=== PATIENT | male | born 1935 | race African-American/Black ===

== ENCOUNTER → 2016-09-23 | Outpatient (CLI) | payer MEDICARE ==
[~2016-09-23] MED LIST: ACET325T PO; ASPI1TAB69 PO; BUME1TAB PO; CARV3.125 PO; CEFT500T3 PO; ENAL20TA PO; FURO1TAB60 PO; FURO1TAB62 PO; GLIP5TAB8 PO; METO25TA3 PO; OXYGENTANK NAS.CANULA; SACU1TAB7 PO; SIMV20TA PO; SPIR25TA PO
[2016-09-23 12:39] LABS: BICARBONATE 27.6 MEQ/L (21.0-32.0); MAGNESIUM 2.4 MG/DL (1.5-2.5); POTASSIUM 5.3 MEQ/L (3.5-5.1)
== END ==
LOC: CLAB 11:59
PROVIDERS: ATTEND Internal Medicine Interventional Cardiology
DX: I50.9 Heart failure, unspecified (principal); I50.32 Chronic diastolic (congestive) heart failure; N18.9 Chronic kidney disease, unspecified
CPT/HCPCS: 36415; 80048; 83735

== ENCOUNTER 2016-09-27 16:23 | Inpatient (IN) | payer MEDICARE ==
[~2016-09-27] VITALS: Ht 190.5 cm; Wt 90.7 kg
[~2016-09-27 16:23] MED LIST changes: -CEFT500T3 PO; -ENAL20TA PO; -FURO1TAB60 PO; -FURO1TAB62 PO; -METO25TA3 PO; -SPIR25TA PO
[2016-09-27 16:26] VITALS: BP 110/70; PULSE 84; RESP 14; TEMP 98; O2SAT 92
[2016-09-27 17:32] VITALS: BP 114/85; PULSE 84; RESP 18; O2SAT 100
--- NOTE | 2016-09-27 17:42 | PD ---
HPI Chief Complaint: Respiratory Symptoms Time Seen by Provider: 17:40 Travel History International Travel<30 days: No Contact w/Intl Traveler<30days: No Traveled to known affect area: No History of Present Illness HPI Patient comes to the hospital for evaluation of worsening shortness breath ongoing since being discharged from the hospital approximately 3-4 weeks ago. Patient was admitted had new pacemaker/defibrillator placed to help with his CHF as well as had his medications adjusted however patient has not followed up with anyone yet since being released reports he has to much fluid on his lungs which is making it difficult for him to breathe and having increasing swelling is bilateral lower extremities. Worse over the past 2-3 weeks. Patient's brothers at bedside states that he stopped by on daily basis to make certain his brother takes his medications in the morning but his brother does not always remember to take them at night. Patient denies any chest pain, fevers, nausea, vomiting, abdominal pain. PFSH Past Medical History Blood Disorders: No Heart Rhythm Problems: No Cancer: No Cardiovascular Problems: Yes (htn) High Cholesterol: Yes Chest Pain: No Congestive Heart Failure: Yes Diabetes: Yes Patient Takes Glucophage: No (glipizide) Endocrine: Yes Gastrointestinal Disorders: No Genitourinary: Yes Hypertension: Yes Immune Disorder: No Implanted Vascular Access Dvce: No Musculoskeletal: No Neurologic: No Psychiatric: No Reproductive: No Respiratory: Yes (chf) Thyroid Disease: No Past Surgical History Other Surgery: Yes Social History Alcohol Use: Yes (beer occ) Tobacco Use: No Substance Use: No Allergies-Medications (Allergen,Severity, Reaction): Coded Allergies: No Known Allergies (Verified , 08/23/16) Reported Meds & Prescriptions Reported Meds & Active Scripts Active Oxygen tank (Oxygen) 1 Ea Tank 2 Liter COLE.CANULA CONTINUOUS Oxygen Concentrator Portable Gaseous 2 L/min via Nasal Cannula Continuous For 99 months Glipizide 5 Mg Tab 5 Mg PO DAILY Take 30 minutes before a meal Entresto (Sacubitril-Valsartan) 49-51 Mg Tab 1 Tab PO BID Acetaminophen 325 Mg Tab 650 Mg PO Q4H PRN Reported Entresto (Sacubitril-Valsartan) 49-51 Mg Tab 1 Tab PO DAILY Lasix (Furosemide) 40 Mg Tab 40 Mg PO DAILY Metoprolol Tartrate 25 Mg Tab 25 Mg PO BID Spironolactone 25 Mg Tab 25 Mg PO DAILY Aspirin 81 Mg Tabdr 81 Mg PO DAILY Review of Systems Except as stated in HPI: all other systems reviewed are Neg Physical Exam Narrative GENERAL: Well-developed, overly nourished, in no acute distress, and non-ill appearing. SKIN: Warm and dry. HEAD: Atraumatic. Normocephalic. EYES: Pupils equal and round. EOMI. No scleral icterus. No injection or drainage. ENT: No nasal bleeding or discharge. Mucous membranes pink and moist. NECK: Trachea midline. Supple. No nuclear rigidity. CARDIOVASCULAR: Regular rate and rhythm. No murmur appreciated. Bilateral pedal edema. RESPIRATORY: No accessory muscle use. No respiratory distress. Crackles noted throughout. Breath sounds equal bilaterally. GASTROINTESTINAL: Abdomen soft, non-tender, nondistended. Hepatic and splenic margins not palpable. Normal bowel sounds 4. No pulsatile mass. MUSCULOSKELETAL: No obvious deformities. No clubbing. No cyanosis. 2+ pitting edema bilateral lower extremities. Full range of motion. NEUROLOGICAL: Awake and alert. No obvious cranial nerve deficits. Motor grossly within normal limits. Normal speech. PSYCHIATRIC: Appropriate mood and affect; insight and judgment normal. Data Data Last Documented VS Vital Signs Date Time Temp Pulse Resp B/P Pulse Ox O2 Delivery O2 Flow Rate FiO2 09/27/16 19:09 98 Nasal Cannula 3 09/27/16 19:09 18 09/27/16 17:32 84 114/85 09/27/16 16:26 98.0 Orders Complete Blood Count With Diff (09/27/16 17:36) Basic Metabolic Panel (Bmp) (09/27/16 17:36) B-Type Natriuretic Peptide (09/27/16 17:36) Act Partial Throm Time (Ptt) (09/27/16 17:36) Prothrombin Time / Inr (Pt) (09/27/16 17:36) Magnesium (Mg) (09/27/16 17:36) Ckmb (Isoenzyme) Profile (09/27/16 17:36) Troponin I (09/27/16 17:36) Iv Access Insert/Monitor (09/27/16 17:36) Electrocardiogram (09/27/16 17:36) Ecg Monitoring (09/27/16 17:36) Oximetry (09/27/16 17:36) Oxygen Administration (09/27/16 17:36) Chest, Single Ap (09/27/16 17:36) Sodium Chloride 0.9% Flush (Ns Flush) (09/27/16 17:45) Bumetanide Inj (Bumex Inj) (09/27/16 19:30) Admit Order (Ed Use Only) (09/27/16 19:57) Labs Laboratory Tests Test 09/27/16 18:00 White Blood Count 4.8 TH/MM3 Red Blood Count 4.07 MIL/MM3 Hemoglobin 10.4 GM/DL Hematocrit 33.8 % Mean Corpuscular Volume 82.9 FL Mean Corpuscular Hemoglobin 25.5 PG Mean Corpuscular Hemoglobin 30.7 % Concent Red Cell Distribution Width 19.3 % Platelet Count 174 TH/MM3 Mean Platelet Volume 9.0 FL Neutrophils (%) (Auto) 74.6 % Lymphocytes (%) (Auto) 13.3 % Monocytes (%) (Auto) 10.3 % Eosinophils (%) (Auto) 1.1 % Basophils (%) (Auto) 0.7 % Neutrophils # (Auto) 3.5 TH/MM3 Lymphocytes # (Auto) 0.6 TH/MM3 Monocytes # (Auto) 0.5 TH/MM3 Eosinophils # (Auto) 0.1 TH/MM3 Basophils # (Auto) 0.0 TH/MM3 CBC Comment DIFF FINAL Differential Comment Prothrombin Time 11.7 SEC Prothromb Time International 1.1 RATIO Ratio Activated Partial 20.9 SEC Thromboplast Time Sodium Level 138 MEQ/L Potassium Level 5.0 MEQ/L Chloride Level 99 MEQ/L Carbon Dioxide Level 30.5 MEQ/L Anion Gap 9 MEQ/L Blood Urea Nitrogen 53 MG/DL Creatinine 2.34 MG/DL Estimat Glomerular Filtration 33 ML/MIN Rate Random Glucose 107 MG/DL Calcium Level 8.4 MG/DL Magnesium Level 2.4 MG/DL Total Creatine Kinase 72 U/L Troponin I 0.05 NG/ML B-Type Natriuretic Peptide GREATER THAN 5000 PG/ML MDM Medical Decision Making Medical Screen Exam Complete: Yes Emergency Medical Condition: Yes Interpretation(s) EKG reviewed by Dr. Alarcon shows ventricular pacemaker rhythm with a ventricular rate of 94. Differential Diagnosis CHF exacerbation, pleural effusion, medical noncompliance, deconditioning, other Narrative Course Patient was seen and examined. Initial laboratory neurological status were ordered. Previous medical records were reviewed. Discussed patient with Dr. Alarcon who is in agreement with plan of care and disposition. Discussed all findings and plan care of patient and his brother. Patient was agreeable for admission. All questions were answered. Physician Communication Physician Communication [address] Correa, who is agreeable to the patient. Diagnosis Primary Impression: Acute exacerbation of congestive heart failure Qualified Code: I50.23 - Acute on chronic systolic congestive heart failure Condition: Stable Shimon Ortega Sep 27, 2016 17:42
[2016-09-27] MEDS ORDERED: SODIUM CHLORIDE 0.9% FLUSH 5 ML FLUSH IVF PRN (17:45)
[2016-09-27 18:22] LABS: AUTOMATED NEUTROPHIL # 3.5 TH/MM3 (1.8-7.7); BASOPHIL % 0.7 % (0.0-2.0); EOSINOPHIL # 0.1 TH/MM3 (0-0.4); EOSINOPHIL % 1.1 % (0.0-4.0); HEMATOCRIT 33.8 % (39.0-51.0); HEMO FLAGS DIFF FINAL; LYMPH % 13.3 % (9.0-44.0); LYMPHOCYTE # 0.6 TH/MM3 (1.0-4.8); MEAN CELL VOLUME 82.9 FL (80.0-100.0); MEAN CORPUSCULAR HEMOGLOBIN 25.5 PG (27.0-34.0); MEAN CORPUSCULAR HGB CONC 30.7 % (32.0-36.0); MONO % 10.3 % (0.0-8.0); NEUT % 74.6 % (16.0-70.0); PLATELET COUNT 174 TH/MM3 (150-450); RED BLOOD COUNT 4.07 MIL/MM3 (4.50-5.90); RED CELL DISTRIBUTION WIDTH 19.3 % (11.6-17.2); WHITE BLOOD COUNT 4.8 TH/MM3 (4.0-11.0)
[2016-09-27 18:42] LABS: APTT (PATIENT) 20.9 SEC (24.3-30.1); INTERNATIONAL NORMALIZED RATIO 1.1 RATIO; PROTHROMBIN TIME - PATIENT 11.7 SEC (9.8-11.6)
--- NOTE | 2016-09-27 18:43 | RADRPT ---
EXAM DATE/TIME: 09/27/2016 18:15 [facility] COMPARISON: CHEST SINGLE AP, August 29, 2016, 14:31. INDICATIONS : Shortness of breath and fluid retention. MEDICAL HISTORY : Hypercholesterolemia. Hypertension. Congestive heart failure. Dyspnea. SURGICAL HISTORY : Pacemaker. ENCOUNTER: Initial ACUITY: 3 weeks PAIN SCORE: 3/10 LOCATION: Bilateral chest FINDINGS: Pacer is in good position. There is cardiomegaly with consolidative changes in the rig ht base with some pleural calcifications evident. There is a slight increase in interstitial edema w hen compared to 08/29/16. There is no pneumothorax. CONCLUSION: Cardiomegaly with minimal increase in interstitial edema. Eldon Collins MD FACR on September 27, 2016 at 18:38 Board Certified Radiologist. This report was verified electronically.
[2016-09-27 18:46] LABS: BICARBONATE 30.5 MEQ/L (21.0-32.0); MAGNESIUM 2.4 MG/DL (1.5-2.5)
[2016-09-27] MEDS ORDERED: FURO1TAB60 PO (19:07)
[2016-09-27] MEDS ORDERED: SPIR25TA PO (19:07)
[2016-09-27] MEDS ORDERED: METO25TA3 PO (19:07)
[2016-09-27] MEDS ORDERED: ENAL20TA PO (19:07)
[2016-09-27] MEDS ORDERED: SACU1TAB7 PO (19:07)
[2016-09-27 19:09] VITALS: RESP 18; O2SAT 98
[2016-09-27 19:30] VITALS: BP 125/82; PULSE 92; RESP 18; O2SAT 99
[2016-09-27] MEDS ORDERED: BUMETANIDE INJ 1 MG/4 ML VIAL IV PUSH ONE (19:30)
[2016-09-27 22:30] VITALS: BP 121/82; PULSE 97; RESP 18; O2SAT 96
[2016-09-28] VITALS (9 sets, daily range): BP systolic 109–130; BP diastolic 69–94; PULSE 87–107; RESP 16–22; TEMP 97.3–98; O2SAT 92–100
--- NOTE | 2016-09-28 00:53 | HHI.HP ---
[facility] Service [facility] Primary Care Physician Cyrus Perry M.D. Admission Diagnosis CHF exacerbation Diagnoses: Chief Complaint: Shortness of breath, swelling Travel History International Travel<30 Days: No Contact w/Intl Traveler <30 Da: No Traveled to Known Affected Are: No History of Present Illness History from patient, ER PA communication, and review of medical records. Patient reported that he came back to the hospital because he has been swelling all over. He is also reporting shortness of breath on exertion. He states he lives alone. He reports he ambulates without a walker. Her states that it is now getting more and more difficult to bear weight on his lower extremities because it has been getting more and more swollen. He denies any chest pains. Patient initially claims that he was not discharged on Lasix. He initially thinks he does not have history of congestive heart failure but later he remembers that he did have AICD placed in his previous admission last month. Medical records from previous hospitalization reviewed. 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 He was admitted at that time for CHF exacerbation as well. Patient's brother who usually checks in on him every day was present in ER and discussed with ER PA. He believes that patient may not be taking his medications as prescribed. When asked about this, patient states he might be forgetting to take his medications as well. States that he would not do that again. Apart from that, patient denies any fevers/nausea/vomiting/diarrhea. Denies seeing any blood in his stool or urine. Review of Systems Constitutional: COMPLAINS OF: Fatigue, Weight gain, DENIES: Diaphoretic episodes, Fever, Weight loss, Dizziness Respiratory: COMPLAINS OF: Shortness of breath, DENIES: Apneas, Cough, Snoring , Wheezing, Sputum production Cardiovascular: COMPLAINS OF: Dyspnea on Exertion, PND, Lower Extremity Edema, Orthopnea, DENIES: Chest pain, Palpitations, Syncope Gastrointestinal: DENIES: Abdominal pain, Black stools, Bloody stools, Constipation, Diarrhea, Nausea, Vomiting Genitourinary: DENIES: Urinary frequency, Urinary incontinence, Urgency, Dysuria Musculoskeletal: COMPLAINS OF: Muscle aches, Back pain Neurologic: COMPLAINS OF: Abnormal gait, Poor Balance, DENIES: Headache, Localized weakness, Seizures, Tremor Past Family Social History Past Medical History Hypertension Diabetes Hyperlipidemia CHFstatus post AICDEF of 30%. 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 Past Surgical History AICD/PPM placement Right shoulder surgery Reported Medications Patient's medications list from discharge 2 weeks agoreviewed. Patient denies any new changes in his medications. Allergies: Coded Allergies: No Known Allergies (Verified , 08/23/16) Family History Denies any family history of any medical conditions. Social History States he quit smoking many years ago. Also denies any alcohol abuse. Stated he quit this as well. Apparently lives by himself. His brother comes in every morning to check on him. Physical Exam Vital Signs Vital Signs Date Time Temp Pulse Resp B/P Pulse Ox O2 Delivery O2 Flow Rate FiO2 09/27/16 22:30 97 18 121/82 96 Nasal Cannula 3 09/27/16 19:30 92 18 125/82 99 Nasal Cannula 09/27/16 19:09 98 Nasal Cannula 3 09/27/16 19:09 18 98 Nasal Cannula 09/27/16 17:32 84 18 114/85 100 Nasal Cannula 2 09/27/16 17:21 82 18 Nasal Cannula 2 09/27/16 16:26 98.0 84 14 110/70 92 Room Air 4 Physical Exam GENERAL: This is a well-nourished, well-developed patient, in no apparent distress. SKIN: No rashes, ecchymoses or lesions. Cool and dry. HEAD: Atraumatic. Normocephalic. No temporal or scalp tenderness. EYES: PNo scleral icterus. No injection or drainage. ENT: Nose without bleeding, purulent drainage or septal hematoma.Airway patent. NECK: Trachea midline. No JVD CARDIOVASCULAR: Regular rate and rhythm without murmurs, gallops, or rubs. RESPIRATORY: Bilateral basilar rales. GASTROINTESTINAL: Abdomen soft, non-tender, nondistended. No guarding. MUSCULOSKELETAL: Extremities without clubbing, cyanosis, No calf tenderness. Bilateral lower extremity 3+ pitting edema up to his thighs. Generalized anasarca. NEUROLOGICAL: Awake and alert. Motor and sensory grossly within normal limits. Normal speech. Laboratory Laboratory Tests Test 09/27/16 18:00 White Blood Count 4.8 Red Blood Count 4.07 Hemoglobin 10.4 Hematocrit 33.8 Mean Corpuscular Volume 82.9 Mean Corpuscular Hemoglobin 25.5 Mean Corpuscular Hemoglobin 30.7 Concent Red Cell Distribution Width 19.3 Platelet Count 174 Mean Platelet Volume 9.0 Neutrophils (%) (Auto) 74.6 Lymphocytes (%) (Auto) 13.3 Monocytes (%) (Auto) 10.3 Eosinophils (%) (Auto) 1.1 Basophils (%) (Auto) 0.7 Neutrophils # (Auto) 3.5 Lymphocytes # (Auto) 0.6 Monocytes # (Auto) 0.5 Eosinophils # (Auto) 0.1 Basophils # (Auto) 0.0 CBC Comment DIFF FINAL Differential Comment Prothrombin Time 11.7 Prothromb Time International 1.1 Ratio Activated Partial 20.9 Thromboplast Time Sodium Level 138 Potassium Level 5.0 Chloride Level 99 Carbon Dioxide Level 30.5 Anion Gap 9 Blood Urea Nitrogen 53 Creatinine 2.34 Estimat Glomerular Filtration 33 Rate Random Glucose 107 Calcium Level 8.4 Magnesium Level 2.4 Total Creatine Kinase 72 Troponin I 0.05 B-Type Natriuretic Peptide GREATER THAN 5000 Result Diagram: 09/27/16 1800 09/27/16 1800 Imaging Last 48 hours Impressions Chest X-Ray 09/27/16 1736 Signed Impressions: Service Date/Time: Tuesday, September 27, 2016 18:15 - CONCLUSION: Cardiomegaly with minimal increase in interstitial edema. Eldon Collisn MD FACR Assessment and Plan Problem List: (1) Acute exacerbation of congestive heart failure ICD Code: I50.9 Status: Acute (2) Peripheral edema ICD Code: R60.9 Status: Acute Assessment and Plan Impression: Generalized anasarca Pulmonary edema Acute on chronic systolic heart failurelikely due to medications noncompliance Elevated BNP Hypertension Diabetes Hyperlipidemia CHFstatus post AICDEF of 30%. 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 Plan: Patient was given Bumex 1 mg IV in ER. Patient is still somewhat symptomatic at the time of my exam which is about 6 hours after that Bumex dose. Will therefore give patient additional 40 mg IV Lasix one dose. Continue Lasix at 40 mg IV every 12 hours. CHF teaching. Inputs/outputs. Daily weights. Resume rest of his home medications. We'll monitor fingersticks and cover with sliding scale coverage. Case management consult for possibly placement into a rehabilitation facility. DVT prophylaxison heparin Discussed Condition With patient, ER PA, nursing staff Physician Certification 2 Midnight Certification Type: Admission for Inpatient Services Order for Inpatient Services The services are ordered in accordance with Medicare regulations or non- Medicare payer requirements, as applicable. In the case of services not specified as inpatient-only, they are appropriately provided as inpatient services in accordance with the 2-midnight benchmark. Estimated LOS (days): 2 days is the estimated time the patient will need to remain in the hospital, assuming treatment plan goals are met and no additional complications. Post-Hospital Plan: SNF Problem Qualifiers (1) Acute exacerbation of congestive heart failure: Qualified Code: I50.23 - Acute on chronic systolic congestive heart failure Uzma Correa MD Sep 28, 2016 00:53
[2016-09-28] MEDS ORDERED: ONDANSETRON HCL 4 MG/2 ML VIAL IVP PRN (01:00)
[2016-09-28] MEDS ORDERED: NALOXONE HCL 0.4 MG/ML AMP IV PRN (01:00)
[2016-09-28] MEDS ORDERED: DEXTROSE 50% IN WATER 50 ML VIAL(D50) IV PUSH PRN (01:00)
[2016-09-28] MEDS ORDERED: FUROSEMIDE 40 MG/4 ML VIAL IV PUSH ONE (01:00)
[2016-09-28] MEDS ORDERED: GLUCAGON 1 MG/ML VIAL OTHER PRN (01:00)
[2016-09-28] MEDS: INSULIN ASPART SUPPLEMENTAL SCALE SQ SCH ×4 (07:00→21:00)
[2016-09-28] MEDS: SACUBITRIL/VALSARTAN 49 MG-51 MG TAB PO SCH (08:31)
[2016-09-28] MEDS: ASPIRIN EC 81 MG TABEC PO SCH (08:31)
[2016-09-28] MEDS: FUROSEMIDE 40 MG/4 ML VIAL IV PUSH SCH ×2 (08:31→18:58)
[2016-09-28] MEDS: glipiZIDE 5 MG TAB PO SCH (08:31)
[2016-09-28] MEDS: SODIUM CHLORIDE 0.9% FLUSH 5 ML FLUSH FLUSH SCH ×2 (08:32→21:00)
[2016-09-28] MEDS: METOPROLOL TARTRATE 25 MG TAB PO SCH ×2 (08:32→22:48)
[2016-09-28] MEDS: SPIRONOLACTONE 25 MG TAB PO SCH (08:32)
[2016-09-28] MEDS: HEPARIN SODIUM - SQ 10,000 UNITS/ML VIAL SQ SCH ×2 (15:53→22:48)
--- NOTE | 2016-09-28 17:23 | HHI.PR ---
Subjective Remarks Patient laying in bed resting comfortable Denied chest pain, stated his breathing is better today he is on iv diuretic Objective Vitals Vital Signs Date Time Temp Pulse Resp B/P Pulse Ox O2 Delivery O2 Flow Rate FiO2 09/28/16 15:36 93 16 121/93 Nasal Cannula 2 97 09/28/16 13:27 94 18 118/88 99 Nasal Cannula 2 09/28/16 11:40 93 18 97 Nasal Cannula 2 09/28/16 11:40 96 Nasal Cannula 2 09/28/16 10:23 87 20 109/77 97 Nasal Cannula 2 09/28/16 08:26 98 20 120/69 96 Nasal Cannula 2 09/28/16 07:24 99 22 111/73 97 Nasal Cannula 2 09/28/16 04:00 98 18 130/94 97 Nasal Cannula 3 09/28/16 04:00 82 18 Nasal Cannula 2 09/28/16 00:30 90 18 130/87 100 Nasal Cannula 3 09/27/16 22:30 97 18 121/82 96 Nasal Cannula 3 09/27/16 19:30 92 18 125/82 99 Nasal Cannula 09/27/16 19:09 98 Nasal Cannula 3 09/27/16 19:09 18 98 Nasal Cannula 09/27/16 17:32 84 18 114/85 100 Nasal Cannula 2 I/O 09/27/16 09/27/16 09/27/16 09/28/16 09/28/16 09/28/16 07:00 15:00 23:00 07:00 15:00 23:00 Intake Total 221 ml Output Total 900 ml 320 ml 375 ml Balance -900 ml -99 ml -375 ml Intake Oral 221 ml Output Urine Total 900 ml 320 ml 375 ml # Voids 1 1 Result Diagram: 09/27/16 1800 09/27/16 1800 Objective Remarks - GENERAL: This is a well-nourished, well-developed patient, in no apparent distress. SKIN: No rashes, warm and dry , some dry ulcer on the stark HEAD: Atraumatic. Normocephalic. EYES: Pupils equal round and reactive. Extraocular motions intact. No scleral icterus. ENT: Nose without bleeding, or drainage, Airway patent. NECK: Trachea midline. Supple CARDIOVASCULAR: Regular rate and rhythm with systolic murmur 3 out of 6 RESPIRATORY: Fair air entry bilaterally. No wheezes, rales, or rhonchi. GASTROINTESTINAL: Abdomen soft, non-tender, nondistended. Positive bowel sounds MUSCULOSKELETAL: Extremities without clubbing, cyanosis, +2 edema. Pedal pulses appreciated NEUROLOGICAL: Awake and alert. Moves all extremity. Normal speech.no focal neurological deficit A/P Problem List: (1) Acute exacerbation of congestive heart failure ICD Code: I50.9 Status: Acute (2) Peripheral edema ICD Code: R60.9 Status: Acute Assessment and Plan 81 years old male admitted with Acute on chronic systolic heart failurelikely due to medications noncompliance Generalized anasarca Pulmonary edema Elevated BNP Hypertension Diabetes Hyperlipidemia CHFstatus post AICDEF of 30%. 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 Plan: Status post Bumex in ER Continue Lasix at 40 mg IV every 12 hours. CHF education Strict Inputs/outputs, Daily weights. Resume rest of his home medications. We'll monitor fingersticks and cover with sliding scale coverage. Case management consult for possibly placement into a rehabilitation facility. DVT prophylaxison heparin Problem Qualifiers (1) Acute exacerbation of congestive heart failure: Qualified Code: I50.23 - Acute on chronic systolic congestive heart failure Enmanuel Yarbrough MD Sep 28, 2016 17:23
--- NOTE | 2016-09-28 20:16 | EKG ---
Date Performed: 09/27/2016 Time Performed: 19:23:56 PTAGE: 81 years EKG: ELECTRONIC VENTRICULAR PACEMAKER ABNORMAL RHYTHM ECG PREVIOUS TRACING : 08/30/2016 05.45 Compared to prior tracing no significant change DOCTOR: Leta Mansfield Interpretating Date/Time 09/28/2016 20:15:35
[2016-09-29] VITALS (9 sets, daily range): BP systolic 112–126; BP diastolic 60–88; PULSE 80–92; RESP 17–20; TEMP 97.1–97.6; O2SAT 0–99
[2016-09-29] MEDS: INSULIN ASPART SUPPLEMENTAL SCALE SQ SCH ×4 (06:13→21:00)
[2016-09-29 06:14] LABS: AUTOMATED NEUTROPHIL # 3.1 TH/MM3 (1.8-7.7); BASOPHIL % 0.7 % (0.0-2.0); EOSINOPHIL % 0.9 % (0.0-4.0); HEMATOCRIT 32.9 % (39.0-51.0); HEMO FLAGS DIFF FINAL; LYMPH % 19.8 % (9.0-44.0); LYMPHOCYTE # 0.9 TH/MM3 (1.0-4.8); MEAN CELL VOLUME 82.6 FL (80.0-100.0); MEAN CORPUSCULAR HGB CONC 30.3 % (32.0-36.0); MONO % 9.9 % (0.0-8.0); NEUT % 68.7 % (16.0-70.0); PLATELET COUNT 176 TH/MM3 (150-450); RED BLOOD COUNT 3.98 MIL/MM3 (4.50-5.90); WHITE BLOOD COUNT 4.5 TH/MM3 (4.0-11.0)
[2016-09-29] MEDS: HEPARIN SODIUM - SQ 10,000 UNITS/ML VIAL SQ SCH ×3 (06:17→21:30)
[2016-09-29 06:41] LABS: BICARBONATE 29.7 MEQ/L (21.0-32.0)
[2016-09-29] MEDS: ASPIRIN EC 81 MG TABEC PO SCH (09:40)
[2016-09-29] MEDS: FUROSEMIDE 40 MG/4 ML VIAL IV PUSH SCH ×2 (09:40→17:26)
[2016-09-29] MEDS: SPIRONOLACTONE 25 MG TAB PO SCH (09:40)
[2016-09-29] MEDS: SACUBITRIL/VALSARTAN 49 MG-51 MG TAB PO SCH (09:40)
[2016-09-29] MEDS: METOPROLOL TARTRATE 25 MG TAB PO SCH ×2 (09:40→21:30)
[2016-09-29] MEDS: glipiZIDE 5 MG TAB PO SCH (09:40)
[2016-09-29] MEDS: SODIUM CHLORIDE 0.9% FLUSH 5 ML FLUSH FLUSH SCH ×2 (09:40→21:30)
[2016-09-29] MEDS ORDERED: INFLUENZA VIRUS VACCINE (QUADRIVALENT) 0.5 ML SYR IM ONE (10:00)
[2016-09-29] MEDS ORDERED: PNEUMOCOCCAL POLYVALENT INJ 25 MCG/0.5 ML SYR IM ONE (10:00)
--- NOTE | 2016-09-29 15:32 | HHI.PR ---
Subjective Remarks All in all patient stated he feels better and breathe better and more able mobilize part of the bed little more comfortable However he doesn't think he is putting out enough urine per the EMR he put out 11 45 cc yesterday Objective Vitals Vital Signs Date Time Temp Pulse Resp B/P Pulse Ox O2 Delivery O2 Flow Rate FiO2 09/29/16 08:15 92 09/29/16 07:15 Nasal Cannula 3.00 97 09/29/16 04:30 99 09/29/16 04:00 97.6 87 18 126/84 09/29/16 00:00 97.2 83 17 112/60 09/28/16 20:50 Nasal Cannula 2.00 09/28/16 20:00 107 09/28/16 20:00 98.0 104 18 125/79 97 09/28/16 17:29 97.3 97 20 123/89 92 09/28/16 15:36 93 16 121/93 Nasal Cannula 2 97 I/O 09/28/16 09/28/16 09/28/16 09/29/16 09/29/16 09/29/16 07:00 15:00 23:00 07:00 15:00 23:00 Intake Total 221 ml 180 ml 240 ml Output Total 900 ml 320 ml 625 ml 200 ml Balance -900 ml -99 ml -445 ml 40 ml Intake Oral 221 ml 180 ml 240 ml Output Urine Total 900 ml 320 ml 625 ml 200 ml # Voids 1 2 # Bowel Movements 0 2 Result Diagram: 09/29/16 0532 09/29/16 0532 Objective Remarks - GENERAL: This is a well-nourished, well-developed patient, in no apparent distress. SKIN: No rashes, warm and dry , some dry ulcer on the stark HEAD: Atraumatic. Normocephalic. EYES: Pupils equal round and reactive. Extraocular motions intact. No scleral icterus. ENT: Nose without bleeding, or drainage, Airway patent. NECK: Trachea midline. Supple CARDIOVASCULAR: Regular rate and rhythm with systolic murmur 3 out of 6 RESPIRATORY: Fair air entry bilaterally. No wheezes, rales, or rhonchi. GASTROINTESTINAL: Abdomen soft, non-tender, nondistended. Positive bowel sounds MUSCULOSKELETAL: Extremities without clubbing, cyanosis, +2 edema. Pedal pulses appreciated NEUROLOGICAL: Awake and alert. Moves all extremity. Normal speech.no focal neurological deficit A/P Problem List: (1) Acute exacerbation of congestive heart failure ICD Code: I50.9 Status: Acute (2) Peripheral edema ICD Code: R60.9 Status: Acute Assessment and Plan 81 years old male admitted with Acute CHF exacerbation : on chronic systolic heart failurelikely due to medications and diet noncompliance Generalized anasarca Hypoalbuminemia Pulmonary edema Elevated BNP Hypertension Diabetes Hyperlipidemia CHFstatus post AICDEF of 30%. 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 Plan: Continue Lasix at 40 mg IV every 12 hours. If no further urine output improvement, will try albumin/Lasix trial, monitor BMP, BNP, check level in a.m. , apply strict fluid restriction 1500 cc per day Strict Inputs/outputs, Daily weights. CHF education Resume rest of his home medications. We'll monitor fingersticks and cover with sliding scale coverage. Case management consult for possibly placement into a rehabilitation facility. DVT prophylaxison heparin Problem Qualifiers (1) Acute exacerbation of congestive heart failure: Qualified Code: I50.23 - Acute on chronic systolic congestive heart failure Enmanuel Yarbrough MD Sep 29, 2016 15:32
[2016-09-30] VITALS (8 sets, daily range): BP systolic 116–139; BP diastolic 76–88; PULSE 85–89; RESP 16–21; TEMP 97.2–99.2; O2SAT 84–100
[2016-09-30] MEDS: HEPARIN SODIUM - SQ 10,000 UNITS/ML VIAL SQ SCH ×3 (06:00→23:18)
[2016-09-30] MEDS: INSULIN ASPART SUPPLEMENTAL SCALE SQ SCH ×4 (06:57→21:00)
[2016-09-30 07:12] LABS: BICARBONATE 26.6 MEQ/L (21.0-32.0); INDIRECT BILIRUBIN 1.1 MG/DL (0.0-0.8); POTASSIUM 5.8 MEQ/L (3.5-5.1); TOTAL BILIRUBIN ADULT 2.8 MG/DL (0.2-1.0)
[2016-09-30] MEDS: SACUBITRIL/VALSARTAN 49 MG-51 MG TAB PO SCH (09:46)
[2016-09-30] MEDS: SODIUM CHLORIDE 0.9% FLUSH 5 ML FLUSH FLUSH SCH ×2 (09:46→23:16)
[2016-09-30] MEDS: FUROSEMIDE 40 MG/4 ML VIAL IV PUSH SCH ×2 (09:46→17:03)
[2016-09-30] MEDS: ASPIRIN EC 81 MG TABEC PO SCH (09:46)
[2016-09-30] MEDS: METOPROLOL TARTRATE 25 MG TAB PO SCH ×2 (09:46→23:14)
[2016-09-30] MEDS ORDERED: INSULIN HUMAN REGULAR 1,000 UNITS/10 ML VIAL IV PUSH ONE (12:45)
[2016-09-30] MEDS ORDERED: DEXTROSE 50% IN WATER 50 ML VIAL(D50) IV PUSH ONE (12:45)
[2016-09-30] MEDS: SODIUM POLYSTYRENE SULFONATE SUSP 15 GM/60 ML CUP PO SCH ×3 (14:15→23:15)
--- NOTE | 2016-09-30 16:05 | HHI.PR ---
Subjective Remarks Patient seen and examined earlier this morning Patient laying in bed comfortably, no chest pain or short of breath Objective Vitals Vital Signs Date Time Temp Pulse Resp B/P Pulse Ox O2 Delivery O2 Flow Rate FiO2 09/30/16 12:08 97.2 89 21 124/85 09/30/16 08:24 97.6 88 20 116/77 09/30/16 07:15 Nasal Cannula 3.00 97 09/30/16 04:00 97.3 85 18 136/84 09/30/16 00:00 97.3 85 18 139/84 09/29/16 20:00 97.1 92 18 123/66 09/29/16 19:15 90 09/29/16 19:15 Nasal Cannula 3.00 97 I/O 09/29/16 09/29/16 09/29/16 09/30/16 09/30/16 09/30/16 07:00 15:00 23:00 07:00 15:00 23:00 Intake Total 240 ml 240 ml 240 ml 100 ml Output Total 200 ml 125 ml 200 ml Balance 40 ml 115 ml 40 ml 100 ml Intake Oral 240 ml 240 ml 240 ml 100 ml Output Urine Total 200 ml 125 ml 200 ml # Voids 2 1 3 # Bowel Movements 2 2 2 0 Result Diagram: 09/29/16 0532 09/30/16 0605 Objective Remarks - GENERAL: This is a well-nourished, well-developed patient, in no apparent distress. SKIN: No rashes, warm and dry , some dry ulcer on the stark HEAD: Atraumatic. Normocephalic. EYES: Pupils equal round and reactive. Extraocular motions intact. No scleral icterus. ENT: Nose without bleeding, or drainage, Airway patent. NECK: Trachea midline. Supple CARDIOVASCULAR: Regular rate and rhythm with systolic murmur 3 out of 6 RESPIRATORY: Fair air entry bilaterally. No wheezes, rales, or rhonchi. GASTROINTESTINAL: Abdomen soft, non-tender, nondistended. Positive bowel sounds MUSCULOSKELETAL: Extremities without clubbing, cyanosis, +2 edema. Pedal pulses appreciated NEUROLOGICAL: Awake and alert. Moves all extremity. Normal speech.no focal neurological deficit A/P Problem List: (1) Acute exacerbation of congestive heart failure ICD Code: I50.9 Status: Acute (2) Peripheral edema ICD Code: R60.9 Status: Acute Assessment and Plan 81 years old male admitted with Acute CHF exacerbation : on chronic systolic heart failurelikely due to medications and diet noncompliance Generalized anasarca Hypoalbuminemia Pulmonary edema Elevated bilirubin, LFT, alkaline phosphatase, mostly congested Liver Hypertension Diabetes Hyperlipidemia CHFstatus post AICDEF of 30%. 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 Plan: 09/30/16 patient had hyperkalemia of 5.8 Discussed with the nurse, will give Kayexalate and D50 followed by 10 units of insulin I directed the nurse to check Accu-Chek after that knowing that patient had some hypoglycemia yesterday, and if glucose< 70 to and D5 normal saline at 40 cc /h Continue Lasix at 40 mg IV Increased frequency to every 8 hours. Stephanie significant improvement with Lasix, will consult cardiology Dr. harry, May need albumin with Lasix trial,monitor BMP, BNP, check level in a.m., apply strict fluid restriction 1500 cc per day Strict Inputs/outputs, Daily weights. CHF education Resume rest of his home medications. We'll monitor fingersticks and cover with sliding scale coverage. Case management consult for possibly placement into a rehabilitation facility. DVT prophylaxison heparin Discharge Planning When clinically improved Problem Qualifiers (1) Acute exacerbation of congestive heart failure: Qualified Code: I50.23 - Acute on chronic systolic congestive heart failure Enmanuel Yarbrough MD Sep 30, 2016 16:05
[2016-09-30] MEDS ORDERED: DEXTROSE 5% IN WATE 1000ML INJ 1,000 ML IV SCH (18:45)
[2016-09-30] MEDS ORDERED: DEXT 5%-NACL 0.45% 1000 ML INJ 1,000 ML IV SCH (19:00)
[2016-10-01 00:07] VITALS: BP 117/81; PULSE 85; RESP 18; TEMP 97.3; O2SAT 100
[2016-10-01] MEDS: FUROSEMIDE 40 MG/4 ML VIAL IV PUSH SCH ×2 (01:25→08:48)
[2016-10-01 04:00] VITALS: BP 118/76; PULSE 92; RESP 18; TEMP 97.4; O2SAT 100
[2016-10-01] MEDS: HEPARIN SODIUM - SQ 10,000 UNITS/ML VIAL SQ SCH ×3 (06:12→21:42)
[2016-10-01] MEDS: INSULIN ASPART SUPPLEMENTAL SCALE SQ SCH ×4 (06:12→21:42)
[2016-10-01 07:41] LABS: TOTAL BILIRUBIN ADULT 2.4 MG/DL (0.2-1.0)
[2016-10-01 07:45] LABS: BICARBONATE 26.5 MEQ/L (21.0-32.0); INDIRECT BILIRUBIN 1.1 MG/DL (0.0-0.8); POTASSIUM 5.2 MEQ/L (3.5-5.1)
[2016-10-01 08:00] VITALS: BP 116/83; PULSE 81; RESP 20; TEMP 97.3; O2SAT 99
[2016-10-01] MEDS: SODIUM CHLORIDE 0.9% FLUSH 5 ML FLUSH FLUSH SCH ×2 (08:47→21:43)
[2016-10-01] MEDS: METOPROLOL TARTRATE 25 MG TAB PO SCH ×2 (08:49→21:39)
[2016-10-01] MEDS: SACUBITRIL/VALSARTAN 49 MG-51 MG TAB PO SCH (08:49)
[2016-10-01] MEDS: ASPIRIN EC 81 MG TABEC PO SCH (08:50)
[2016-10-01] MEDS: SODIUM POLYSTYRENE SULFONATE SUSP 15 GM/60 ML CUP PO SCH (08:50)
[2016-10-01] MEDS ORDERED: SODIUM POLYSTYRENE SULFONATE SUSP 15 GM/60 ML CUP PO ONE (11:00)
--- NOTE | 2016-10-01 11:02 | HHI.PR ---
Subjective Remarks Patient laying in bed he's not very pleasant "They put me in restrain last night " I discussed extensively with the nurse Brooke Yun and with the charge nurse Lulu , looks like he was agitated yesterday His blood sugar was above 200 today we'll stop D5 iv fluid, and I instructed the nurse to bring him a tray to eat now He denied chest pain, still on O2 nasal cannula, urine output is not enough for that amount of diuresis he gets, will start albumin with Lasix Objective Vitals Vital Signs Date Time Temp Pulse Resp B/P Pulse Ox O2 Delivery O2 Flow Rate FiO2 10/01/16 08:00 97.3 81 20 116/83 99 10/01/16 07:20 Nasal Cannula 2.00 10/01/16 04:00 97.4 92 18 118/76 100 10/01/16 00:07 97.3 85 18 117/81 100 09/30/16 22:00 100 Nasal Cannula 2.00 09/30/16 20:00 99.2 89 16 132/88 84 09/30/16 20:00 88 09/30/16 16:11 97.3 88 19 121/76 09/30/16 12:08 97.2 89 21 124/85 I/O 09/30/16 09/30/16 09/30/16 10/01/16 10/01/16 10/01/16 07:00 15:00 23:00 07:00 15:00 23:00 Intake Total 100 ml 360 ml Balance 100 ml 360 ml Intake Oral 100 ml 360 ml # Voids 3 2 2 # Bowel Movements 0 1 2 Result Diagram: 09/29/16 0532 10/01/16 0654 Objective Remarks - GENERAL: This is a well-nourished, well-developed patient, in no apparent distress. SKIN: No rashes, warm and dry , some dry ulcer on the stark HEAD: Atraumatic. Normocephalic. EYES: Pupils equal round and reactive. Extraocular motions intact. No scleral icterus. ENT: Nose without bleeding, or drainage, Airway patent. NECK: Trachea midline. Supple CARDIOVASCULAR: Regular rate and rhythm with systolic murmur 3 out of 6 RESPIRATORY: Fair air entry bilaterally. No wheezes, rales, or rhonchi. GASTROINTESTINAL: Abdomen soft, non-tender, nondistended. Positive bowel sounds MUSCULOSKELETAL: Extremities without clubbing, cyanosis, +2 edema. Pedal pulses appreciated NEUROLOGICAL: Awake and alert. Moves all extremity. Normal speech.no focal neurological deficit A/P Problem List: (1) Acute exacerbation of congestive heart failure ICD Code: I50.9 Status: Acute (2) Peripheral edema ICD Code: R60.9 Status: Acute Assessment and Plan 81 years old male admitted with Acute CHF exacerbation : on chronic systolic heart failurelikely due to medications and diet noncompliance Generalized anasarca Hypoalbuminemia Pulmonary edema Elevated bilirubin, LFT, alkaline phosphatase, mostly congested Liver Hypoglycemia episodes Hypertension Diabetes Hyperlipidemia CHFstatus post AICDEF of 30%. 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 Plan: 10/01/16 hyperkalemia slightly improved 5.2>> one more dose Kayexalate Hypoglycemia >>Blood sugar improved will DC D5 normal saline fluid, Stop any basal insulin or glipizide, Continue monitoring Accu-Cheks CHF >>Will start albumin with Lasix trial,monitor BMP, BNP, check level in a.m. , continue strict fluid restriction 1500 cc per day Awaiting cardiology consultation Strict Inputs/outputs, Daily weights. CHF education Resume rest of his home medications.. Case management consult for possibly placement into a rehabilitation facility. DVT prophylaxison heparin Discharge Planning When clinically improved Problem Qualifiers (1) Acute exacerbation of congestive heart failure: Qualified Code: I50.23 - Acute on chronic systolic congestive heart failure Enmanuel Yarbrough MD Oct 01, 2016 11:02
--- NOTE | 2016-10-01 11:40 | MB ---
cc: DAVID BISHOP M.D., VINCENT G. DO DATE OF CONSULTATION: 09/30/[address] David Bishop REASON FOR CONSULTATION Acute on chronic congestive heart failure. HISTORY OF PRESENT ILLNESS Gerald Collins is a pleasant 81-year-old male who presented to [facility] Emergency Room on September 27, 2016 due to increased swelling and shortness of breath. Gerald was originally admitted back in August due to acute exacerbation of congestive heart failure. During this he underwent placement of a biventricular AICD by Dr. Reed. While at home he noticed that it was getting harder and harder to bear weight on his lower extremities due to increased swelling. He also noticed some shortness of breath with exertion. The patient had initially claimed that he was not discharged on Lasix. The patient's brother who usually checks on him believes that the patient may not be taking his medications as prescribed. I spoke to the patient about this and he states he may have forgotten to take his medication. He denies chest pain. PAST MEDICAL HISTORY 1. Chronic systolic heart failure. 2. Hypertension. 3. Diabetes mellitus. 4. Hyperlipidemia. PAST SURGICAL HISTORY 1. Biventricular Biotronik pacemaker/defibrillator (model number [id number], serial number [id number]) on August 29, 2016. 2. Right shoulder surgery. ALLERGIES NO KNOWN DRUG ALLERGIES. MEDICATIONS 1. Entresto 49/51 one tab b.i.d. 2. Tylenol every 4 hours as needed. 3. Metoprolol tartrate 25 mg b.i.d. 4. Lasix 40 mg daily. 5. Spironolactone 25 mg daily. 6. Aspirin 81 mg daily. 7. Oxygen as needed. 8. Glipizide 5 mg daily. FAMILY HISTORY Denies premature coronary artery disease or sudden cardiac within the family. SOCIAL HISTORY The patient currently lives alone but his brother checks on him daily. He quit smoking a number of years ago. Denies alcohol or drug abuse. REVIEW OF SYSTEMS Fourteen systems were reviewed including osteopathic, pertinent positives and negatives above, otherwise negative. PHYSICAL EXAMINATION VITAL SIGNS: Temperature 97.3, heart rate 85, blood pressure 117/81, respirations 18, pulse ox 100% on 2 liters. GENERAL: In general the patient appears well, in no acute distress. Alert, awake and oriented. HEENT: Extraocular muscles intact. Mucous membranes moist. NECK: Neck is supple. No JVD at 45 degrees. No carotid bruits heard bilaterally. Carotid upstroke is brisk in nature. HEART: Heart is regular rate and rhythm. Positive first and second heart sounds. LUNGS: Lungs have decreased breath sounds bilaterally but no overt wheezes, rales or rhonchi. ABDOMEN: Abdomen is soft, nontender, nondistended. No organomegaly noted. EXTREMITIES: Extremities have 2+ pitting edema bilaterally. No clubbing or cyanosis noted. Femoral and distal pulses intact bilaterally. NEUROLOGIC: No focal deficits. SKIN: Warm, dry and intact. OSTEOPATHIC: No kyphoscoliosis, lordosis or paraspinal tender points. LABORATORY WORK Hemoglobin 10.0, hematocrit 32.9, platelets 176. Potassium 5.5, BUN 65, creatinine 2.56, troponin 0.05, BNP greater than 5000. Electrocardiogram (September 27, 2016 at 1923), biventricular pacemaker. IMPRESSIONS 1. Acute on chronic systolic heart failure, [place] [employer] Class III, AHA/ACC, Stage C. 2. Placement of a biventricular ICD (August 29, 2016). 3. Peripheral edema due to heart failure. 4. History of hypertension. 5. History of diabetes. 6. History of hyperlipidemia. RECOMMENDATIONS 1. Gerald has been placed on Lasix 40 mg q.8 and has since diuresed well and is no longer short of breath. 2. His other diuretics have since been held while diuresing. 3. We will continue to diurese him as he still appears in a fluid overload state. 4. We will continue him on aspirin 81 mg daily. 5. Further recommendations will be made based on hospital course. Thank you for allowing me to see Gerald Collins. If any questions, please do not hesitate to call. Vimal Gomez DO VGP/BJF /1:11 AM /11:13 AM
[2016-10-01 12:00] VITALS: BP 108/80; PULSE 84; RESP 20; TEMP 97.4; O2SAT 100
[2016-10-01] MEDS ORDERED: FUROSEMIDE 40 MG/4 ML VIAL IV PUSH SCH (12:00)
--- NOTE | 2016-10-01 13:22 | PD.CARD.PN ---
Subjective Subjective Remarks No chest pain, decreased shortness of breath Objective Medications Current Medications Medications (Trade) Dose Ordered Sig/Deborah Route Start Time Stop Time Status Last Admin (NS Flush) 2 ml UNSCH PRN FLUSH 09/28/16 01:00 (NS Flush) 2 ml BID FLUSH 09/28/16 09:00 09/30/16 23:16 (Zofran Inj) 4 mg Q6H PRN IVP 09/28/16 01:00 (Narcan Inj) 0.4 mg UNSCH PRN IV 09/28/16 01:00 (Ecotrin Ec) 81 mg DAILY PO 09/28/16 09:00 10/01/16 08:50 (Glucotrol) 5 mg DAILY PO 09/28/16 09:00 Hold 09/29/16 09:40 (Lopressor) 25 mg BID PO 09/28/16 09:00 10/01/16 08:49 (Entresto 49-51 Mg) 1 tab DAILY PO 09/28/16 09:00 10/01/16 08:49 (Aldactone) 25 mg DAILY PO 09/28/16 09:00 Hold 09/29/16 09:40 (D50w (Vial) Inj) 25 ml UNSCH PRN IV PUSH 09/28/16 01:00 09/29/16 21:35 (Glucagon Inj) 1 mg UNSCH PRN OTHER 09/28/16 01:00 09/30/16 18:50 (Heparin Inj) 5,000 units Q8HR SQ 09/28/16 14:00 10/01/16 06:12 (Lasix Inj) 40 mg Q12H IV PUSH 10/01/16 21:00 (Albumin 25% Inj) 25 gm Q12H IV 10/01/16 11:00 10/02/16 23:01 Vital Signs / I&O Vital Signs Date Time Temp Pulse Resp B/P Pulse Ox O2 Delivery O2 Flow Rate FiO2 10/01/16 12:00 97.4 84 20 108/80 100 10/01/16 08:00 97.3 81 20 116/83 99 10/01/16 07:20 Nasal Cannula 2.00 10/01/16 04:00 97.4 92 18 118/76 100 10/01/16 00:07 97.3 85 18 117/81 100 09/30/16 22:00 100 Nasal Cannula 2.00 09/30/16 20:00 99.2 89 16 132/88 84 09/30/16 20:00 88 09/30/16 16:11 97.3 88 19 121/76 I/O 09/30/16 09/30/16 09/30/16 10/01/16 10/01/16 10/01/16 07:00 15:00 23:00 07:00 15:00 23:00 Intake Total 100 ml 360 ml Balance 100 ml 360 ml Intake Oral 100 ml 360 ml # Voids 3 2 2 # Bowel Movements 0 1 2 Physical Exam GENERAL: NAD SKIN: Warm and dry. HEAD: Atraumatic. Normocephalic. EYES: Pupils equal and round. No scleral icterus. No injection or drainage. ENT: No nasal bleeding or discharge. Mucous membranes pink and moist. NECK: Trachea midline. No JVD. CARDIOVASCULAR: Regular rate and rhythm. RESPIRATORY: Decreased breath sounds bilaterally GASTROINTESTINAL: Abdomen soft, non-tender, nondistended. Hepatic and splenic margins not palpable. MUSCULOSKELETAL: Anasarca, 2+ pitting edema upper and lower extremities, better than yesterday NEUROLOGICAL: Awake and alert. No obvious cranial nerve deficits. Motor grossly within normal limits. Five out of 5 muscle strength in the arms and legs. Normal speech. PSYCHIATRIC: Appropriate mood and affect; insight and judgment normal. Laboratory Laboratory Tests Test 09/30/16 10/01/16 10/01/16 18:43 06:45 06:54 Potassium Level 5.5 MEQ/L 5.2 MEQ/L Random Glucose 51 MG/DL 98 MG/DL B-Type Natriuretic Peptide GREATER THAN 5000 PG/ML Sodium Level 137 MEQ/L Chloride Level 100 MEQ/L Carbon Dioxide Level 26.5 MEQ/L Anion Gap 11 MEQ/L Blood Urea Nitrogen 67 MG/DL Creatinine 2.79 MG/DL Estimat Glomerular Filtration 27 ML/MIN Rate Calcium Level 8.9 MG/DL Total Bilirubin 2.4 MG/DL Direct Bilirubin 1.3 MG/DL Indirect Bilirubin 1.1 MG/DL Aspartate Amino Transf 128 U/L (AST/SGOT) Alanine Aminotransferase 107 U/L (ALT/SGPT) Alkaline Phosphatase 276 U/L Total Protein 6.1 GM/DL Albumin 2.6 GM/DL Assessment and Plan Problem List: (1) Acute exacerbation of congestive heart failure (2) Peripheral edema (3) Acute on chronic renal insufficiency (4) Abnormal liver function test (5) Volume overload Assessment and Plan 1) Acute on chronic systolic HF, most likely due to forgetting to take his medications as he was directed 2) Continue with diuresis as possible 3) Agree with eventual rehab if possible 4) OOB to chair if possible, help to move fluids some 5) Fluid restriction Problem Qualifiers (1) Acute exacerbation of congestive heart failure: Qualified Code: I50.23 - Acute on chronic systolic congestive heart failure Vimal Gomez DO Oct 01, 2016 13:22
[2016-10-01] MEDS ORDERED: FUROSEMIDE 20 MG/2 ML VIAL IV PUSH PRN (13:45)
[2016-10-01] MEDS: ALBUMIN HUMAN 25% 25 GM/100 ML BAGP IV SCH ×2 (14:34→23:32)
[2016-10-01 16:00] VITALS: BP 117/65; PULSE 79; RESP 20; TEMP 97.5; O2SAT 98
[2016-10-01 20:00] VITALS: BP 106/68; PULSE 88; PULSE 89; RESP 20; TEMP 98.6; O2SAT 100
[2016-10-02] VITALS: BP 109/74; PULSE 78; RESP 20; TEMP 97.7; O2SAT 98
[2016-10-02] MEDS: FUROSEMIDE 40 MG/4 ML VIAL IV PUSH SCH ×4 (00:38→23:45)
[2016-10-02 04:00] VITALS: BP 121/89; PULSE 90; RESP 18; TEMP 97.7; O2SAT 99
[2016-10-02] MEDS: HEPARIN SODIUM - SQ 10,000 UNITS/ML VIAL SQ SCH ×3 (05:46→22:00)
[2016-10-02] MEDS: INSULIN ASPART SUPPLEMENTAL SCALE SQ SCH ×4 (05:47→21:00)
[2016-10-02 08:00] VITALS: BP 126/81; PULSE 84; RESP 16; TEMP 97.2; O2SAT 100
[2016-10-02] MEDS: SODIUM CHLORIDE 0.9% FLUSH 5 ML FLUSH FLUSH SCH ×2 (09:00→22:01)
[2016-10-02] MEDS: SACUBITRIL/VALSARTAN 49 MG-51 MG TAB PO SCH (09:15)
[2016-10-02] MEDS: ASPIRIN EC 81 MG TABEC PO SCH (09:15)
[2016-10-02] MEDS: METOPROLOL TARTRATE 25 MG TAB PO SCH ×2 (09:15→22:00)
[2016-10-02 10:09] LABS: BICARBONATE 30.4 MEQ/L (21.0-32.0); POTASSIUM 3.8 MEQ/L (3.5-5.1)
[2016-10-02] MEDS: ALBUMIN HUMAN 25% 25 GM/100 ML BAGP IV SCH ×2 (11:14→23:05)
[2016-10-02 12:00] VITALS: BP 126/78; PULSE 78; RESP 20; TEMP 97.2; O2SAT 100
--- NOTE | 2016-10-02 15:59 | HHI.PR ---
Subjective Remarks Patient stated he feeling better and urinating a lot more today No chest pain or short of breath, his leg is relatively better than before Benefiting from albumin Lasix diuresing Afebrile Objective Vitals Vital Signs Date Time Temp Pulse Resp B/P Pulse Ox O2 Delivery O2 Flow Rate FiO2 10/02/16 12:00 97.2 78 20 126/78 100 10/02/16 08:00 97.2 84 16 126/81 100 10/02/16 04:00 97.7 90 18 121/89 99 10/02/16 00:00 97.7 78 20 109/74 98 10/01/16 20:00 Nasal Cannula 2.00 10/01/16 20:00 88 10/01/16 20:00 98.6 89 20 106/68 100 10/01/16 16:00 97.5 79 20 117/65 98 I/O 10/01/16 10/01/16 10/01/16 10/02/16 10/02/16 10/02/16 07:00 15:00 23:00 07:00 15:00 23:00 Intake Total 240 ml 220 ml Output Total 200 ml 250 ml Balance 40 ml 220 ml -250 ml Intake Oral 240 ml 120 ml IV Total 100 ml Output Urine Total 200 ml 250 ml # Voids 1 # Bowel Movements 1 1 Result Diagram: 09/29/16 0532 10/02/16 0848 Objective Remarks - GENERAL: This is a well-nourished, well-developed patient, in no apparent distress. SKIN: No rashes, warm and dry , some dry ulcer on the stark HEAD: Atraumatic. Normocephalic. EYES: Pupils equal round and reactive. Extraocular motions intact. No scleral icterus. ENT: Nose without bleeding, or drainage, Airway patent. NECK: Trachea midline. Supple CARDIOVASCULAR: Regular rate and rhythm with systolic murmur 3 out of 6 RESPIRATORY: Fair air entry bilaterally. No wheezes, rales, or rhonchi. GASTROINTESTINAL: Abdomen soft, non-tender, nondistended. Positive bowel sounds MUSCULOSKELETAL: Extremities without clubbing, cyanosis, +2 edema but better than before. Pedal pulses appreciated NEUROLOGICAL: Awake and alert. Moves all extremity. Normal speech.no focal neurological deficit A/P Problem List: (1) Acute exacerbation of congestive heart failure ICD Code: I50.9 Status: Acute (2) Peripheral edema ICD Code: R60.9 Status: Acute Assessment and Plan 81 years old male admitted with Acute CHF exacerbation : on chronic systolic heart failurelikely due to medications and diet noncompliance Generalized anasarca Hypoalbuminemia Pulmonary edema Elevated bilirubin, LFT, alkaline phosphatase, mostly congested Liver Hypoglycemia episodes Hypertension Diabetes Hyperlipidemia CHFstatus post AICDEF of 30%. 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 Plan: 10/02/16 hyperkalemia resolved Hypoglycemia >> resolved, continue Accu-Cheks, sliding scale low level if needed CHF >> on albumin with Lasix trial, reviewed BMP, BNP still at 5000, check level in a.m., continue strict fluid restriction 1500 cc per day Appreciated cardiology consultation Strict Inputs/outputs, Daily weights. CHF education Resume rest of his home medications.. Case management consult for possibly placement into a rehabilitation facility. DVT prophylaxison heparin Discharge Planning When clinically improved Problem Qualifiers (1) Acute exacerbation of congestive heart failure: Qualified Code: I50.23 - Acute on chronic systolic congestive heart failure Enmanuel Yarbrough MD Oct 02, 2016 15:59
[2016-10-02 16:00] VITALS: BP 116/68; PULSE 81; RESP 16; TEMP 97.3; O2SAT 100
--- NOTE | 2016-10-02 16:15 | PD.CARD.PN ---
Subjective Subjective Remarks No chest pain, no shortness of breath, appears somewhat lethargic Objective Medications Current Medications Medications (Trade) Dose Ordered Sig/Deborah Route Start Time Stop Time Status Last Admin (Zofran Inj) 4 mg Q6H PRN IVP 09/28/16 01:00 (Narcan Inj) 0.4 mg UNSCH PRN IV 09/28/16 01:00 (Ecotrin Ec) 81 mg DAILY PO 09/28/16 09:00 10/02/16 09:15 (Glucotrol) 5 mg DAILY PO 09/28/16 09:00 Hold 09/29/16 09:40 (Lopressor) 25 mg BID PO 09/28/16 09:00 10/02/16 09:15 (Entresto 49-51 Mg) 1 tab DAILY PO 09/28/16 09:00 10/02/16 09:15 (Aldactone) 25 mg DAILY PO 09/28/16 09:00 Hold 09/29/16 09:40 (D50w (Vial) Inj) 25 ml UNSCH PRN IV PUSH 09/28/16 01:00 09/29/16 21:35 (Glucagon Inj) 1 mg UNSCH PRN OTHER 09/28/16 01:00 09/30/16 18:50 (Heparin Inj) 5,000 units Q8HR SQ 09/28/16 14:00 10/02/16 13:22 (Albumin 25% Inj) 25 gm Q12H IV 10/01/16 11:00 10/02/16 23:01 10/02/16 11:14 (Lasix Inj) 40 mg Q12H IV PUSH 10/02/16 23:30 Vital Signs / I&O Vital Signs Date Time Temp Pulse Resp B/P Pulse Ox O2 Delivery O2 Flow Rate FiO2 10/02/16 12:00 97.2 78 20 126/78 100 10/02/16 08:00 97.2 84 16 126/81 100 10/02/16 04:00 97.7 90 18 121/89 99 10/02/16 00:00 97.7 78 20 109/74 98 10/01/16 20:00 Nasal Cannula 2.00 10/01/16 20:00 88 10/01/16 20:00 98.6 89 20 106/68 100 I/O 1/21/17 1/10/01/16 10/02/16 10/02/16 10/02/16 07:00 15:00 23:00 07:00 15:00 23:00 Intake Total 240 ml 220 ml Output Total 200 ml 250 ml Balance 40 ml 220 ml -250 ml Intake Oral 240 ml 120 ml IV Total 100 ml Output Urine Total 200 ml 250 ml # Voids 1 # Bowel Movements 1 1 Physical Exam GENERAL: NAD SKIN: Warm and dry. HEAD: Atraumatic. Normocephalic. EYES: Pupils equal and round. No scleral icterus. No injection or drainage. ENT: No nasal bleeding or discharge. Mucous membranes pink and moist. NECK: Trachea midline. No JVD. CARDIOVASCULAR: Regular rate and rhythm. RESPIRATORY: Decreased breath sounds bilaterally GASTROINTESTINAL: Abdomen soft, non-tender, nondistended. Hepatic and splenic margins not palpable. MUSCULOSKELETAL: Anasarca, 2+ pitting edema upper and lower extremities, better than yesterday NEUROLOGICAL: Awake and alert. No obvious cranial nerve deficits. Motor grossly within normal limits. Five out of 5 muscle strength in the arms and legs. Normal speech. PSYCHIATRIC: Appropriate mood and affect; insight and judgment normal. Laboratory Laboratory Tests Test 10/02/16 08:48 Sodium Level 140 MEQ/L Potassium Level 3.8 MEQ/L Chloride Level 99 MEQ/L Carbon Dioxide Level 30.4 MEQ/L Anion Gap 11 MEQ/L Blood Urea Nitrogen 64 MG/DL Creatinine 2.39 MG/DL Estimat Glomerular Filtration 32 ML/MIN Rate Random Glucose 106 MG/DL Calcium Level 8.6 MG/DL B-Type Natriuretic Peptide GREATER THAN 5000 PG/ML Assessment and Plan Problem List: (1) Acute exacerbation of congestive heart failure (2) Peripheral edema (3) Acute on chronic renal insufficiency (4) Abnormal liver function test (5) Volume overload Assessment and Plan 1) Acute on chronic systolic HF, most likely due to forgetting to take his medications as he was directed 2) Continue with diuresis as possible, weights not really dropping with little urine output... may need to increase the dose of Lasix for his kidney dysfunction... if still not a lot tomorrow will increase to 60mg 3) Agree with eventual rehab if possible 4) OOB to chair if possible, help to move fluids some 5) Fluid restriction Problem Qualifiers (1) Acute exacerbation of congestive heart failure: Qualified Code: I50.23 - Acute on chronic systolic congestive heart failure Vimal Gomez DO Oct 02, 2016 16:15
[2016-10-02 20:00] VITALS: BP 116/85; PULSE 79; PULSE 82; RESP 20; TEMP 97.9; O2SAT 100
[2016-10-03] VITALS (8 sets, daily range): BP systolic 100–127; BP diastolic 70–87; PULSE 76–92; RESP 18–24; TEMP 97.2–98.2; O2SAT 90–100
[2016-10-03] MEDS: INSULIN ASPART SUPPLEMENTAL SCALE SQ SCH ×4 (05:23→21:27)
[2016-10-03] MEDS: HEPARIN SODIUM - SQ 10,000 UNITS/ML VIAL SQ SCH ×3 (05:23→21:27)
[2016-10-03] MEDS: METOPROLOL TARTRATE 25 MG TAB PO SCH ×2 (09:02→20:47)
[2016-10-03] MEDS: SACUBITRIL/VALSARTAN 49 MG-51 MG TAB PO SCH (09:02)
[2016-10-03] MEDS: SODIUM CHLORIDE 0.9% FLUSH 5 ML FLUSH FLUSH SCH ×2 (09:02→20:46)
[2016-10-03] MEDS: ASPIRIN EC 81 MG TABEC PO SCH (09:02)
[2016-10-03] MEDS: FUROSEMIDE 40 MG/4 ML VIAL IV PUSH SCH (10:56)
[2016-10-03 11:20] LABS: MEAN CORPUSCULAR HGB CONC 29.7 % (32.0-36.0)
--- NOTE | 2016-10-03 11:50 | HHI.PR ---
Subjective Remarks Patient sitting on the chair, looks more pleasant today, brother at the bedside Stated his breathing is better and he is more comfortable walking to the bathroom now, leg swelling relatively improved Senior Partner recommended increasing Lasix to 60 mg twice a day Objective Vitals Vital Signs Date Time Temp Pulse Resp B/P Pulse Ox O2 Delivery O2 Flow Rate FiO2 10/03/16 08:06 98.2 89 24 123/84 100 10/03/16 04:00 97.8 79 18 119/74 100 10/03/16 00:00 97.7 76 18 100/75 100 10/02/16 23:00 Nasal Cannula 2.00 10/02/16 20:00 82 10/02/16 20:00 97.9 79 20 116/85 100 10/02/16 18:36 100 Nasal Cannula 2.00 10/02/16 16:00 97.3 81 16 116/68 100 10/02/16 12:00 97.2 78 20 126/78 100 I/O 10/02/16 10/02/16 10/02/16 10/03/16 10/03/16 10/03/16 07:00 15:00 23:00 07:00 15:00 23:00 Intake Total 600 ml 240 ml 100 ml Output Total 250 ml 1000 ml 500 ml Balance -250 ml -400 ml -260 ml 100 ml Intake Oral 600 ml 240 ml IV Total 100 ml Output Urine Total 250 ml 1000 ml 500 ml # Bowel Movements 0 0 Result Diagram: 09/29/16 0532 10/02/16 0848 Objective Remarks - GENERAL: This is a well-nourished, well-developed patient, in no apparent distress. SKIN: No rashes, warm and dry , some dry ulcer on the stark HEAD: Atraumatic. Normocephalic. EYES: Pupils equal round and reactive. Extraocular motions intact. No scleral icterus. ENT: Nose without bleeding, or drainage, Airway patent. NECK: Trachea midline. Supple CARDIOVASCULAR: Regular rate and rhythm with systolic murmur 3 out of 6 RESPIRATORY: Fair air entry bilaterally. No wheezes, rales, or rhonchi. GASTROINTESTINAL: Abdomen soft, non-tender, nondistended. Positive bowel sounds MUSCULOSKELETAL: Extremities without clubbing, cyanosis, +2 edema but better than before. Pedal pulses appreciated NEUROLOGICAL: Awake and alert. Moves all extremity. Normal speech.no focal neurological deficit A/P Problem List: (1) Acute exacerbation of congestive heart failure ICD Code: I50.9 Status: Acute (2) Peripheral edema ICD Code: R60.9 Status: Acute Assessment and Plan 81 years old male admitted with Acute CHF exacerbation : on chronic systolic heart failurelikely due to medications and diet noncompliance Hypoalbuminemia Pulmonary edema Elevated bilirubin, LFT, alkaline phosphatase, mostly congested Liver Hypoglycemia episodes Hypertension Diabetes Hyperlipidemia CHFstatus post AICDEF of 30%. 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 Plan: 10/03/16 CHF >> s/p albumin with Lasix trial,BMP, BNP still at 5000, increase Lasix to 60 mg repeat level in a.m., continue strict fluid restriction 1500 cc per day Cardiology following recommended increasing Lasix to 60 mg iv twice a day Strict Inputs/outputs, Daily weights. CHF education Resume rest of his home medications.. Hypoglycemia >> resolved, hyperkalemia resolved DVT prophylaxison heparin Case management consult for possibly placement into a rehabilitation facility. Discharge Planning When clinically improved Problem Qualifiers (1) Acute exacerbation of congestive heart failure: Qualified Code: I50.23 - Acute on chronic systolic congestive heart failure Enmanuel Yarbrough MD Oct 03, 2016 11:50
[2016-10-03] MEDS: FUROSEMIDE 100 MG/10 ML VIAL IV PUSH SCH (13:11)
[2016-10-03 14:39] LABS: AUTOMATED NEUTROPHIL # 3.2 TH/MM3 (1.8-7.7); BASOPHIL % 0.7 % (0.0-2.0); EOSINOPHIL # 0.1 TH/MM3 (0-0.4); EOSINOPHIL % 1.6 % (0.0-4.0); HEMATOCRIT 29.6 % (39.0-51.0); LYMPH % 12.6 % (9.0-44.0); LYMPHOCYTE # 0.5 TH/MM3 (1.0-4.8); MEAN CELL VOLUME 82.8 FL (80.0-100.0); MEAN CORPUSCULAR HEMOGLOBIN 24.6 PG (27.0-34.0); MONO % 10.4 % (0.0-8.0); NEUT % 74.7 % (16.0-70.0); PLATELET COUNT 150 TH/MM3 (150-450); RED BLOOD COUNT 3.58 MIL/MM3 (4.50-5.90); RED CELL DISTRIBUTION WIDTH 19.7 % (11.6-17.2); WHITE BLOOD COUNT 4.3 TH/MM3 (4.0-11.0)
[2016-10-03 14:40] LABS: HEMO FLAGS AUTO DIFF
[2016-10-03 15:04] LABS: BICARBONATE 31.9 MEQ/L (21.0-32.0); INDIRECT BILIRUBIN 0.7 MG/DL (0.0-0.8); MAGNESIUM 2.1 MG/DL (1.5-2.5); POTASSIUM 3.9 MEQ/L (3.5-5.1); TOTAL BILIRUBIN ADULT 1.9 MG/DL (0.2-1.0)
[2016-10-03 15:19] LABS: ACANTHOCYTES 1+ (NORMAL); OVALOCYTES 1+ (NORMAL); PLATELET ESTIMATE SMEAR NORMAL (NORMAL); PLATELET MORPHOLOGY NORMAL (NORMAL); SCAN/DIFF AUTO DIFF CONFIRMED
--- NOTE | 2016-10-03 15:50 | PD.CARD.PN ---
Subjective Subjective Remarks No chest pain, no shortness of breath Objective Medications Current Medications Medications (Trade) Dose Ordered Sig/Deborah Route Start Time Stop Time Status Last Admin (NS Flush) 2 ml UNSCH PRN FLUSH 09/28/16 01:00 (NS Flush) 2 ml BID FLUSH 09/28/16 09:00 10/03/16 09:02 (Zofran Inj) 4 mg Q6H PRN IVP 09/28/16 01:00 (Narcan Inj) 0.4 mg UNSCH PRN IV 09/28/16 01:00 (Ecotrin Ec) 81 mg DAILY PO 09/28/16 09:00 10/03/16 09:02 (Glucotrol) 5 mg DAILY PO 09/28/16 09:00 Hold 09/29/16 09:40 (Lopressor) 25 mg BID PO 09/28/16 09:00 10/03/16 09:02 (Entresto 49-51 Mg) 1 tab DAILY PO 09/28/16 09:00 10/03/16 09:02 (Aldactone) 25 mg DAILY PO 09/28/16 09:00 Hold 09/29/16 09:40 (D50w (Vial) Inj) 25 ml UNSCH PRN IV PUSH 09/28/16 01:00 09/29/16 21:35 (Glucagon Inj) 1 mg UNSCH PRN OTHER 09/28/16 01:00 09/30/16 18:50 (Heparin Inj) 5,000 units Q8HR SQ 09/28/16 14:00 10/03/16 13:11 (Lasix Inj) 60 mg Q12H IV PUSH 10/03/16 12:00 10/03/16 13:11 Vital Signs / I&O Vital Signs Date Time Temp Pulse Resp B/P Pulse Ox O2 Delivery O2 Flow Rate FiO2 10/03/16 12:05 97.2 81 24 127/70 90 10/03/16 08:06 98.2 89 24 123/84 100 10/03/16 08:00 Nasal Cannula 2.00 10/03/16 07:47 78 10/03/16 04:00 97.8 79 18 119/74 100 10/03/16 00:00 97.7 76 18 100/75 100 10/02/16 23:00 Nasal Cannula 2.00 10/02/16 20:00 82 10/02/16 20:00 97.9 79 20 116/85 100 10/02/16 18:36 100 Nasal Cannula 2.00 10/02/16 16:00 97.3 81 16 116/68 100 I/O 10/02/16 10/02/16 10/02/16 10/03/16 10/03/16 10/03/16 07:00 15:00 23:00 07:00 15:00 23:00 Intake Total 600 ml 240 ml 100 ml Output Total 250 ml 1000 ml 500 ml Balance -250 ml -400 ml -260 ml 100 ml Intake Oral 600 ml 240 ml IV Total 100 ml Output Urine Total 250 ml 1000 ml 500 ml # Bowel Movements 0 0 Physical Exam GENERAL: NAD SKIN: Warm and dry. HEAD: Atraumatic. Normocephalic. EYES: Pupils equal and round. No scleral icterus. No injection or drainage. ENT: No nasal bleeding or discharge. Mucous membranes pink and moist. NECK: Trachea midline. No JVD. CARDIOVASCULAR: Regular rate and rhythm. RESPIRATORY: Decreased breath sounds bilaterally GASTROINTESTINAL: Abdomen soft, non-tender, nondistended. Hepatic and splenic margins not palpable. MUSCULOSKELETAL: Anasarca, 2+ pitting edema upper and lower extremities, better than yesterday NEUROLOGICAL: Awake and alert. No obvious cranial nerve deficits. Motor grossly within normal limits. Five out of 5 muscle strength in the arms and legs. Normal speech. PSYCHIATRIC: Appropriate mood and affect; insight and judgment normal. Laboratory Laboratory Tests Test 10/03/16 14:15 White Blood Count 4.3 TH/MM3 Red Blood Count 3.58 MIL/MM3 Hemoglobin 8.8 GM/DL Hematocrit 29.6 % Mean Corpuscular Volume 82.8 FL Mean Corpuscular Hemoglobin 24.6 PG Mean Corpuscular Hemoglobin 29.7 % Concent Red Cell Distribution Width 19.7 % Platelet Count 150 TH/MM3 Mean Platelet Volume 8.6 FL Neutrophils (%) (Auto) 74.7 % Lymphocytes (%) (Auto) 12.6 % Monocytes (%) (Auto) 10.4 % Eosinophils (%) (Auto) 1.6 % Basophils (%) (Auto) 0.7 % Neutrophils # (Auto) 3.2 TH/MM3 Lymphocytes # (Auto) 0.5 TH/MM3 Monocytes # (Auto) 0.4 TH/MM3 Eosinophils # (Auto) 0.1 TH/MM3 Basophils # (Auto) 0.0 TH/MM3 CBC Comment AUTO DIFF Differential Comment AUTO DIFF CONFIRMED Platelet Estimate NORMAL Platelet Morphology Comment NORMAL Ovalocytes 1+ Acanthocytes 1+ Sodium Level 139 MEQ/L Potassium Level 3.9 MEQ/L Chloride Level 97 MEQ/L Carbon Dioxide Level 31.9 MEQ/L Anion Gap 10 MEQ/L Blood Urea Nitrogen 64 MG/DL Creatinine 2.24 MG/DL Estimat Glomerular Filtration 34 ML/MIN Rate Random Glucose 226 MG/DL Calcium Level 8.2 MG/DL Phosphorus Level 3.4 MG/DL Magnesium Level 2.1 MG/DL Total Bilirubin 1.9 MG/DL Direct Bilirubin 1.2 MG/DL Indirect Bilirubin 0.7 MG/DL Aspartate Amino Transf 54 U/L (AST/SGOT) Alanine Aminotransferase 76 U/L (ALT/SGPT) Alkaline Phosphatase 249 U/L B-Type Natriuretic Peptide GREATER THAN 5000 PG/ML Total Protein 6.4 GM/DL Albumin 3.0 GM/DL Assessment and Plan Problem List: (1) Acute exacerbation of congestive heart failure (2) Peripheral edema (3) Acute on chronic renal insufficiency (4) Abnormal liver function test (5) Volume overload Assessment and Plan 1) Acute on chronic systolic HF, most likely due to forgetting to take his medications as he was directed 2) Continue with diuresis as possible, weights not really dropping with little urine output... Lasix increased, if no output then may need Zaroxolyn 3) Agree with eventual rehab if possible 4) OOB to chair if possible, help to move fluids some 5) Fluid restriction Problem Qualifiers (1) Acute exacerbation of congestive heart failure: Qualified Code: I50.23 - Acute on chronic systolic congestive heart failure Vimal Gomez DO Oct 03, 2016 15:50
[2016-10-04] VITALS (7 sets, daily range): BP systolic 102–136; BP diastolic 73–85; PULSE 82–97; RESP 18–20; TEMP 97.4–98.7; O2SAT 94–100
[2016-10-04] MEDS: FUROSEMIDE 100 MG/10 ML VIAL IV PUSH SCH ×2 (00:12→11:40)
[2016-10-04] MEDS: SODIUM CHLORIDE 0.9% FLUSH 5 ML FLUSH FLUSH PRN (00:12)
[2016-10-04] MEDS: HEPARIN SODIUM - SQ 10,000 UNITS/ML VIAL SQ SCH ×3 (06:33→21:59)
[2016-10-04] MEDS: INSULIN ASPART SUPPLEMENTAL SCALE SQ SCH ×4 (06:33→21:58)
[2016-10-04 08:04] LABS: BICARBONATE 33.8 MEQ/L (21.0-32.0); MAGNESIUM 2.2 MG/DL (1.5-2.5); POTASSIUM 3.9 MEQ/L (3.5-5.1)
[2016-10-04] MEDS: METOPROLOL TARTRATE 25 MG TAB PO SCH ×2 (09:11→21:06)
[2016-10-04] MEDS: SACUBITRIL/VALSARTAN 49 MG-51 MG TAB PO SCH (09:12)
[2016-10-04] MEDS: ASPIRIN EC 81 MG TABEC PO SCH (09:12)
[2016-10-04] MEDS: SODIUM CHLORIDE 0.9% FLUSH 5 ML FLUSH FLUSH SCH ×2 (09:12→21:06)
--- NOTE | 2016-10-04 12:44 | HHI.PR ---
Subjective Remarks "I did some exercise today " Stated he feels and breathe better today, moderate increase in urine output after the upgrade in Lasix dose BNP still at 5000, yesterday discussed with school bus technician, will give a dose of Zaroxolyn and continue monitoring output of the urine in the daily weight Objective Vitals Vital Signs Date Time Temp Pulse Resp B/P Pulse Ox O2 Delivery O2 Flow Rate FiO2 10/04/16 12:33 Nasal Cannula 2.00 97 10/04/16 05:03 Nasal Cannula 2.00 10/04/16 05:03 97.5 88 18 102/78 100 10/04/16 00:34 98.3 82 18 106/73 100 10/04/16 00:34 Nasal Cannula 2.00 10/03/16 22:01 92 10/03/16 20:49 Nasal Cannula 2.00 10/03/16 20:49 97.2 83 22 120/82 100 10/03/16 14:02 98.0 92 22 120/87 100 I/O 10/03/16 10/03/16 10/03/16 10/04/16 10/04/16 10/04/16 07:00 15:00 23:00 07:00 15:00 23:00 Intake Total 100 ml 600 ml 240 ml Output Total 800 ml 200 ml 650 ml Balance 100 ml -200 ml 40 ml -650 ml Intake Oral 600 ml 240 ml IV Total 100 ml Output Urine Total 800 ml 200 ml 650 ml # Bowel Movements 0 0 0 Result Diagram: 10/03/16 1415 10/04/16 0610 Objective Remarks - GENERAL: This is a well-nourished, well-developed patient, in no apparent distress. SKIN: No rashes, warm and dry , some dry ulcer on the stark HEAD: Atraumatic. Normocephalic. EYES: Pupils equal round and reactive. Extraocular motions intact. No scleral icterus. ENT: Nose without bleeding, or drainage, Airway patent. NECK: Trachea midline. Supple CARDIOVASCULAR: Regular rate and rhythm with systolic murmur 3 out of 6 RESPIRATORY: Fair air entry bilaterally. No wheezes, rales, or rhonchi. GASTROINTESTINAL: Abdomen soft, non-tender, nondistended. Positive bowel sounds MUSCULOSKELETAL: Extremities without clubbing, cyanosis, +2 edema but better than before. Pedal pulses appreciated NEUROLOGICAL: Awake and alert. Moves all extremity. Normal speech.no focal neurological deficit A/P Problem List: (1) Acute exacerbation of congestive heart failure ICD Code: I50.9 Status: Acute (2) Peripheral edema ICD Code: R60.9 Status: Acute Assessment and Plan 81 years old male admitted with Acute CHF exacerbation : on chronic systolic heart failurelikely due to medications and diet noncompliance Hypoalbuminemia Pulmonary edema Elevated bilirubin, LFT, alkaline phosphatase, mostly congested Liver Hypoglycemia episodes Hypertension Diabetes Hyperlipidemia CHFstatus post AICDEF of 30%. 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 Plan: 10/03/16 CHF >> moderate inc in UO after increase Lasix to 60 mg repeat level , will give one dose of zaroxylin 5 mg po , check K @1800, replace as needed, bmp, bnp in am s/p albumin with Lasix trial,BMP, BNP still at 5000, continue strict fluid restriction 1500 cc per day Cardiology following, D/w Strict Inputs/outputs, Daily weights. CHF education Resume rest of his home medications.. Hypoglycemia >>replace as needed hyperkalemia resolved DVT prophylaxison heparin Case management consult for possibly placement into a rehabilitation facility. Discharge Planning When clinically improved Problem Qualifiers (1) Acute exacerbation of congestive heart failure: Qualified Code: I50.23 - Acute on chronic systolic congestive heart failure Enmanuel Yarbrough MD Oct 04, 2016 12:43
[2016-10-04] MEDS ORDERED: METOLAZONE 5 MG TAB PO ONE (14:00)
--- NOTE | 2016-10-04 17:32 | PD.CARD.PN ---
Subjective Subjective Remarks No chest pain, no shortness of breath, less lethargic Objective Medications Current Medications Medications (Trade) Dose Ordered Sig/Deborah Route Start Time Stop Time Status Last Admin (NS Flush) 2 ml UNSCH PRN FLUSH 09/28/16 01:00 10/04/16 00:12 (NS Flush) 2 ml BID FLUSH 09/28/16 09:00 10/04/16 09:12 (Zofran Inj) 4 mg Q6H PRN IVP 09/28/16 01:00 (Narcan Inj) 0.4 mg UNSCH PRN IV 09/28/16 01:00 (Ecotrin Ec) 81 mg DAILY PO 09/28/16 09:00 10/04/16 09:12 (Glucotrol) 5 mg DAILY PO 09/28/16 09:00 Hold 09/29/16 09:40 (Lopressor) 25 mg BID PO 09/28/16 09:00 10/04/16 09:11 (Entresto 49-51 Mg) 1 tab DAILY PO 09/28/16 09:00 10/04/16 09:12 (Aldactone) 25 mg DAILY PO 09/28/16 09:00 Hold 09/29/16 09:40 (D50w (Vial) Inj) 25 ml UNSCH PRN IV PUSH 09/28/16 01:00 09/29/16 21:35 (Glucagon Inj) 1 mg UNSCH PRN OTHER 09/28/16 01:00 09/30/16 18:50 (Heparin Inj) 5,000 units Q8HR SQ 09/28/16 14:00 10/04/16 13:31 (Lasix Inj) 60 mg Q12H IV PUSH 10/03/16 12:00 10/04/16 11:40 Vital Signs / I&O Vital Signs Date Time Temp Pulse Resp B/P Pulse Ox O2 Delivery O2 Flow Rate FiO2 10/04/16 12:33 Nasal Cannula 2.00 97 10/04/16 05:03 Nasal Cannula 2.00 10/04/16 05:03 97.5 88 18 102/78 100 10/04/16 00:34 98.3 82 18 106/73 100 10/04/16 00:34 Nasal Cannula 2.00 10/03/16 22:01 92 10/03/16 20:49 Nasal Cannula 2.00 10/03/16 20:49 97.2 83 22 120/82 100 I/O 10/03/16 10/03/16 10/03/16 10/04/16 10/04/16 10/04/16 07:00 15:00 23:00 07:00 15:00 23:00 Intake Total 100 ml 600 ml 240 ml Output Total 800 ml 200 ml 650 ml Balance 100 ml -200 ml 40 ml -650 ml Intake Oral 600 ml 240 ml IV Total 100 ml Output Urine Total 800 ml 200 ml 650 ml # Bowel Movements 0 0 0 Physical Exam GENERAL: NAD SKIN: Warm and dry. HEAD: Atraumatic. Normocephalic. EYES: Pupils equal and round. No scleral icterus. No injection or drainage. ENT: No nasal bleeding or discharge. Mucous membranes pink and moist. NECK: Trachea midline. No JVD. CARDIOVASCULAR: Regular rate and rhythm. RESPIRATORY: Decreased breath sounds bilaterally GASTROINTESTINAL: Abdomen soft, non-tender, nondistended. Hepatic and splenic margins not palpable. MUSCULOSKELETAL: Anasarca, 2+ pitting edema upper and lower extremities, better than yesterday NEUROLOGICAL: Awake and alert. No obvious cranial nerve deficits. Motor grossly within normal limits. Five out of 5 muscle strength in the arms and legs. Normal speech. PSYCHIATRIC: Appropriate mood and affect; insight and judgment normal. Laboratory Laboratory Tests Test 10/04/16 06:10 Sodium Level 140 MEQ/L Potassium Level 3.9 MEQ/L Chloride Level 98 MEQ/L Carbon Dioxide Level 33.8 MEQ/L Anion Gap 8 MEQ/L Blood Urea Nitrogen 64 MG/DL Creatinine 1.96 MG/DL Estimat Glomerular Filtration 40 ML/MIN Rate Random Glucose 107 MG/DL Calcium Level 8.7 MG/DL Phosphorus Level 3.1 MG/DL Magnesium Level 2.2 MG/DL B-Type Natriuretic Peptide GREATER THAN 5000 PG/ML Assessment and Plan Problem List: (1) Acute exacerbation of congestive heart failure (2) Peripheral edema (3) Acute on chronic renal insufficiency (4) Abnormal liver function test (5) Volume overload Assessment and Plan 1) Acute on chronic systolic HF, most likely due to forgetting to take his medications as he was directed 2) Continue with diuresis as possible, weights not really dropping with little urine output... Lasix increased, will try one dose of Zaroxolyn 3) Agree with eventual rehab if possible 4) OOB to chair if possible, help to move fluids some 5) Fluid restriction Problem Qualifiers (1) Acute exacerbation of congestive heart failure: Qualified Code: I50.23 - Acute on chronic systolic congestive heart failure Vimal Gomez DO Oct 04, 2016 17:32
[2016-10-05] VITALS: BP 110/80; PULSE 84; RESP 16; TEMP 97.4; O2SAT 100
[2016-10-05] MEDS: SODIUM CHLORIDE 0.9% FLUSH 5 ML FLUSH FLUSH PRN (00:03)
[2016-10-05] MEDS: FUROSEMIDE 100 MG/10 ML VIAL IV PUSH SCH ×2 (00:03→12:18)
[2016-10-05 04:00] VITALS: BP 133/74; PULSE 95; RESP 18; TEMP 98; O2SAT 97
[2016-10-05] MEDS: HEPARIN SODIUM - SQ 10,000 UNITS/ML VIAL SQ SCH ×3 (05:24→21:37)
[2016-10-05] MEDS: INSULIN ASPART SUPPLEMENTAL SCALE SQ SCH ×4 (06:00→21:00)
[2016-10-05 08:00] VITALS: BP 122/79; PULSE 90; RESP 20; TEMP 97.4; O2SAT 92
[2016-10-05] MEDS: SODIUM CHLORIDE 0.9% FLUSH 5 ML FLUSH FLUSH SCH ×2 (08:26→21:37)
[2016-10-05] MEDS: METOPROLOL TARTRATE 25 MG TAB PO SCH ×2 (08:26→21:37)
[2016-10-05] MEDS: SACUBITRIL/VALSARTAN 49 MG-51 MG TAB PO SCH (08:26)
[2016-10-05] MEDS: ASPIRIN EC 81 MG TABEC PO SCH (08:27)
[2016-10-05 10:37] LABS: BICARBONATE 31.2 MEQ/L (21.0-32.0); POTASSIUM 3.8 MEQ/L (3.5-5.1)
[2016-10-05 12:00] VITALS: BP 124/72; PULSE 80; RESP 18; TEMP 97.8; O2SAT 92
[2016-10-05] MEDS ORDERED: POTASSIUM CHLORIDE 10 MEQ CONTROLLED RELEASE TAB PO ONE (12:45)
--- NOTE | 2016-10-05 13:59 | HHI.PR ---
Subjective Remarks Follow up on advance CHF Patient reported he feels much better, more able to bend his knee, swelling in his legs better, today creatinine increase, so we will back off diuresing, we' ll switch him to by mouth prednisone 40 mg in a.m. and 20 in p.m. Continue with Aldactone without potassium supplement due to recent hyperkalemia , patient can be discharged in a.m. with home health care, he said his son need to pick him up. Continue to follow up with the pool hand as an outpatient, patient extensively educated and counseled about CHF, avoiding salty food, restricting daily fluid, and being adherent with the medication Objective Vitals Vital Signs Date Time Temp Pulse Resp B/P Pulse Ox O2 Delivery O2 Flow Rate FiO2 10/05/16 11:48 Nasal Cannula 2.00 97 10/05/16 08:00 97.4 90 20 122/79 92 10/05/16 04:00 98.0 95 18 133/74 97 10/05/16 04:00 Nasal Cannula 2.00 10/05/16 00:00 Nasal Cannula 2.00 10/05/16 00:00 97.4 84 16 110/80 100 10/04/16 20:00 97.4 92 18 131/74 98 10/04/16 20:00 Nasal Cannula 2.00 10/04/16 19:59 97 10/04/16 16:00 97.5 90 20 136/83 I/O 10/04/16 10/04/16 10/04/16 10/05/16 10/05/16 10/05/16 07:00 15:00 23:00 07:00 15:00 23:00 Intake Total 240 ml 120 ml Output Total 650 ml 625 ml 550 ml Balance -650 ml -385 ml -430 ml Intake Oral 240 ml 120 ml Output Urine Total 650 ml 625 ml 550 ml # Bowel Movements 0 0 0 Result Diagram: 10/03/16 1415 10/05/16 0848 Imaging Last Impressions Chest X-Ray 09/27/16 1736 Signed Impressions: Service Date/Time: Tuesday, September 27, 2016 18:15 - CONCLUSION: Cardiomegaly with minimal increase in interstitial edema. Eldon Collins MD FACR Objective Remarks - GENERAL: This is a well-nourished, well-developed patient, in no apparent distress. SKIN: No rashes, warm and dry , some dry ulcer on the stark HEAD: Atraumatic. Normocephalic. EYES: Pupils equal round and reactive. Extraocular motions intact. No scleral icterus. ENT: Nose without bleeding, or drainage, Airway patent. NECK: Trachea midline. Supple CARDIOVASCULAR: Regular rate and rhythm with systolic murmur 3 out of 6 RESPIRATORY: Fair air entry bilaterally. No wheezes, rales, or rhonchi. GASTROINTESTINAL: Abdomen soft, non-tender, nondistended. Positive bowel sounds MUSCULOSKELETAL: Extremities without clubbing, cyanosis, S1, edema, improved much better from before. Pedal pulses appreciated NEUROLOGICAL: Awake and alert. Moves all extremity. Normal speech.no focal neurological deficit A/P Problem List: (1) Acute exacerbation of congestive heart failure ICD Code: I50.9 Status: Acute (2) Peripheral edema ICD Code: R60.9 Status: Acute Assessment and Plan 81 years old male admitted with Acute CHF exacerbation : on chronic systolic heart failurelikely due to medications and diet noncompliance Hypoalbuminemia Pulmonary edema Elevated bilirubin, LFT, alkaline phosphatase, mostly congested Liver Hypoglycemia episodes Hypertension Diabetes Hyperlipidemia CHFstatus post AICDEF of 30%. 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 Plan: CHF >> Patient has been producing good UO he was on Lasix to 60 mg twice a day,s/p albumin with Lasix, status post 1 dose of Zaroxolyn lean on 10/04/16, Will change him to by mouth 40 mg in a.m. and 20 in p.m., resuming his spironolactone, he will be able to be discharged tomorrow. Follow up as an outpatient, and check BMP in 2-3 days Daily Monitoring of,BMP, BNP which still at 5000, continue strict fluid restriction 1500 cc per day Cardiology following, D/w Strict Inputs/outputs, Daily weights. CHF education Resume rest of his home medications.. Hypoglycemia >>replace as needed hyperkalemia resolved DVT prophylaxison heparin Case management consult for possibly placement into a rehabilitation facility. Discharge Planning Later today or in a.m. when his son comes to pick him up with home health care Problem Qualifiers (1) Acute exacerbation of congestive heart failure: Qualified Code: I50.23 - Acute on chronic systolic congestive heart failure Enmanuel Yarbrough MD Oct 05, 2016 13:59
[2016-10-05] MEDS ORDERED: FURO1TAB62 PO (14:33)
--- NOTE | 2016-10-05 14:34 | HHI.FF ---
Face to Face Verification Diagnosis: (1) Diabetes mellitus (2) Peripheral edema (3) Acute exacerbation of congestive heart failure (4) Volume overload Physical Therapy Order: Evaluate and Treat Occupational Therapy Order: Evaluate and Treat Home Health Nursing Order: Medical education CHF education Nursing assessment with vital signs I have seen patient Gerald Collins on 10/05/16. My clinical findings support the need for the requested home health care services because: Ltd mobility - disease progression Med compliance is questionable Limited ability to care for self I certify that my clinical findings support that this patient is homebound because: Unsafe to leave home unassisted Poor cardiac reserve Enmanuel Yarbrough MD Oct 05, 2016 14:34
--- NOTE | 2016-10-05 14:45 | HHI.DS ---
Discharge Summary Admission Date Sep 27, 2016 at 19:58 Discharge Date: Nov 05, 2016 Admitting Diagnosis CHF exacerbation (1) Acute exacerbation of congestive heart failure ICD Code: I50.9 (2) Peripheral edema ICD Code: R60.9 Procedures None Brief History - From Admission History from patient, ER PA communication, and review of medical records. Patient reported that he came back to the hospital because he has been swelling all over. He is also reporting shortness of breath on exertion. He states he lives alone. He reports he ambulates without a walker. Her states that it is now getting more and more difficult to bear weight on his lower extremities because it has been getting more and more swollen. He denies any chest pains. Patient initially claims that he was not discharged on Lasix. He initially thinks he does not have history of congestive heart failure but later he remembers that he did have AICD placed in his previous admission last month. Medical records from previous hospitalization reviewed. 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 He was admitted at that time for CHF exacerbation as well. Patient's brother who usually checks in on him every day was present in ER and discussed with ER PA. He believes that patient may not be taking his medications as prescribed. When asked about this, patient states he might be forgetting to take his medications as well. States that he would not do that again. Apart from that, patient denies any fevers/nausea/vomiting/diarrhea. Denies seeing any blood in his stool or urine. CBC/BMP: 10/03/16 1415 10/05/16 0848 Significant Findings Laboratory Tests Test 10/03/16 10/04/16 10/05/16 14:15 06:10 08:48 Red Blood Count 3.58 MIL/MM3 (4.50-5.90) Hemoglobin 8.8 GM/DL (13.0-17.0) Hematocrit 29.6 % (39.0-51.0) Mean Corpuscular Hemoglobin 24.6 PG (27.0-34.0) Mean Corpuscular Hemoglobin 29.7 % Concent (32.0-36.0) Red Cell Distribution Width 19.7 % (11.6-17.2) Neutrophils (%) (Auto) 74.7 % (16.0-70.0) Monocytes (%) (Auto) 10.4 % (0.0-8.0) Lymphocytes # (Auto) 0.5 TH/MM3 (1.0-4.8) Ovalocytes 1+ (NORMAL) Acanthocytes 1+ (NORMAL) Chloride Level 97 MEQ/L 95 MEQ/L (98-107) (98-107) Blood Urea Nitrogen 64 MG/DL (7-18) 64 MG/DL (7-18) 65 MG/DL (7-18) Creatinine 2.24 MG/DL 1.96 MG/DL 2.04 MG/DL (0.60-1.30) (0.60-1.30) (0.60-1.30) Estimat Glomerular Filtration 34 ML/MIN (>89) 40 ML/MIN (>89) 38 ML/MIN (>89) Rate Random Glucose 226 MG/DL 107 MG/DL 135 MG/DL (74-106) (74-106) (74-106) Calcium Level 8.2 MG/DL (8.5-10.1) Total Bilirubin 1.9 MG/DL (0.2-1.0) Direct Bilirubin 1.2 MG/DL (0.0-0.2) Aspartate Amino Transf 54 U/L (15-37) (AST/SGOT) Alkaline Phosphatase 249 U/L (45-117) B-Type Natriuretic Peptide GREATER THAN GREATER THAN GREATER THAN 5000 PG/ML 5000 PG/ML 5000 PG/ML (0-100) (0-100) (0-100) Albumin 3.0 GM/DL (3.4-5.0) Carbon Dioxide Level 33.8 MEQ/L (21.0-32.0) PE at Discharge - GENERAL: This is a well-nourished, well-developed patient, in no apparent distress. SKIN: No rashes, warm and dry , some dry ulcer on the stark HEAD: Atraumatic. Normocephalic. EYES: Pupils equal round and reactive. Extraocular motions intact. No scleral icterus. ENT: Nose without bleeding, or drainage, Airway patent. NECK: Trachea midline. Supple CARDIOVASCULAR: Regular rate and rhythm with systolic murmur 3 out of 6 RESPIRATORY: Fair air entry bilaterally. No wheezes, rales, or rhonchi. GASTROINTESTINAL: Abdomen soft, non-tender, nondistended. Positive bowel sounds MUSCULOSKELETAL: Extremities without clubbing, cyanosis, S1, edema, improved much better from before. Pedal pulses appreciated NEUROLOGICAL: Awake and alert. Moves all extremity. Normal speech.no focal neurological deficit Hospital Course 81 years old male admitted with Acute CHF exacerbation : on chronic systolic heart failurelikely due to medications and diet noncompliance Hypoalbuminemia Pulmonary edema Elevated bilirubin, LFT, alkaline phosphatase, mostly congested Liver Hypoglycemia episodes Hypertension Diabetes Hyperlipidemia CHFstatus post AICDEF of 30%. 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 Plan: CHF >> Patient has been producing good UO he was on Lasix to 60 mg twice a day,s/p albumin with Lasix, status post 1 dose of Zaroxolyn lean on 10/04/16, change him to by mouth 40 mg in a.m. and 20 in p.m., resuming his spironolactone, he will be able to be discharged tomorrow. Follow up as an outpatient, and check BMP in 2-3 days Daily Monitoring of,BMP, BNP which still at 5000, continue strict fluid restriction 1500 cc per day Cardiology following, D/w Strict Inputs/outputs, Daily weights. CHF education Resume rest of his home medications.. Hypoglycemia >>replace as needed hyperkalemia resolved DVT prophylaxison heparin PT OT He recommended home health care [id number] encounter performed with the patient on discharge day, as well as physical exam, summary of hospitalization course and postdischarge plan has been D/W the patient. D/W nurse D/W director of casework. Discharge medications reviewed and printed and signed, post discharge follow up visit with PCP and other specialist as well as Brief hospital course and discharge summary has been placed. Pt Condition on Discharge: Fair Discharge Disposition: Disch w/ Home Health Serv Discharge Time: > 30 minutes Discharge Instructions DIET: Follow Instructions for: Heart Healthy Diet, Diabetic Diet Additional Diet Instructions: Completely avoid salty canned food Fluid Restrictions: 1500 cc per day Activities you can perform: See Additionl Instruction Other Activity Instructions: Per PT, home health New Orders: BASIC METABOLIC PROF - 2-3 Days New Medications: Furosemide (Lasix) 20 Mg Tab 20 MG PO qhs chf #30 Ref 0 TAB Continued Medications: Acetaminophen (Acetaminophen) 325 Mg Tab 650 MG PO Q4H PRN PAIN 1 TO 10 AND/OR AGITATION #60 TAB Aspirin (Aspirin) 81 Mg Tabdr 81 MG PO DAILY TAB Furosemide (Lasix) 40 Mg Tab 40 MG PO DAILY #30 Ref 0 TAB Glipizide (Glipizide) 5 Mg Tab 5 MG PO DAILY Take 30 minutes before a meal Blood Sugar Management #30 Ref 0 TAB Metoprolol Tartrate (Metoprolol Tartrate) 25 Mg Tab 25 MG PO BID #60 Ref 0 TAB Sacubitril-Valsartan (Entresto) 49-51 Mg Tab 1 TAB PO DAILY Heart Failure #30 Ref 0 TAB Spironolactone (Spironolactone) 25 Mg Tab 25 MG PO DAILY #30 Ref 0 TAB Enmanuel Yarbrough MD Oct 05, 2016 14:45
[2016-10-05 16:00] VITALS: BP 132/78; PULSE 89; RESP 18; TEMP 97.4; O2SAT 92
--- NOTE | 2016-10-05 17:04 | PQ ---
Physician Query Response Document PATIENT: BETHANIE GR : 1935 ADMIT DATE: 09/27/2016 7:58 PM DISCH DATE: RESPONDING PROVIDER #: graham QUERY TEXT: Kidney Failure, Acute - Associated Conditions Acute on chronic renal insufficiency is documented in the Medical Record. Based on your medical ju dgment, can you further clarify which, if any, of the following this condition is intended to indicat e: ?Acute Renal Failure (Acute Kidney Injury) ?Acute on Chronic Renal Failure (please indicate CRF stage) ?Chronic Kidney Disease or Chronic Renal Failure Stage ?Acute tubular necrosis ?Acute papillary necrosis ?Acute medullary necrosis ?Other Specify ?Unable to determine (Please explain) The patient's Clinical Indicators include: Creatinine on admission = [employer] 2.34 Baseline Creatinine (if known): GFR 33 / BUN 53 Acute on chronic renal insufficiency per cardiology Query created by: Chasidy Chow on 10/03/2016 12:55 PM RESPONSE TEXT: CKD stage 3 Electronically signed by: Enmanuel Yarbrough MD 10/05/2016 5:00 PM
[2016-10-05] MEDS: FUROSEMIDE 20 MG TAB PO SCH (17:25)
[2016-10-05 20:00] VITALS: BP 126/91; PULSE 101; PULSE 94; RESP 18; TEMP 98.3; O2SAT 93
--- NOTE | 2016-10-05 22:48 | PD.CARD.PN ---
Subjective Subjective Remarks No chest pain, no shortness of breath, doing well Objective Medications Current Medications Medications (Trade) Dose Ordered Sig/Deborah Route Start Time Stop Time Status Last Admin (NS Flush) 2 ml UNSCH PRN FLUSH 09/28/16 01:00 10/05/16 00:03 (NS Flush) 2 ml BID FLUSH 09/28/16 09:00 10/05/16 21:37 (Zofran Inj) 4 mg Q6H PRN IVP 09/28/16 01:00 (Narcan Inj) 0.4 mg UNSCH PRN IV 09/28/16 01:00 (Ecotrin Ec) 81 mg DAILY PO 09/28/16 09:00 10/05/16 08:27 (Glucotrol) 5 mg DAILY PO 09/28/16 09:00 Hold 09/29/16 09:40 (Lopressor) 25 mg BID PO 09/28/16 09:00 10/05/16 21:37 (Entresto 49-51 Mg) 1 tab DAILY PO 09/28/16 09:00 10/05/16 08:26 (Aldactone) 25 mg DAILY PO 09/28/16 09:00 Hold 09/29/16 09:40 (D50w (Vial) Inj) 25 ml UNSCH PRN IV PUSH 09/28/16 01:00 09/29/16 21:35 (Glucagon Inj) 1 mg UNSCH PRN OTHER 09/28/16 01:00 09/30/16 18:50 (Heparin Inj) 5,000 units Q8HR SQ 09/28/16 14:00 10/05/16 21:37 (Lasix) 40 mg DAILY PO 10/06/16 09:00 (Lasix) 20 mg DAILY@1800 PO 10/05/16 18:00 10/05/16 17:25 Vital Signs / I&O Vital Signs Date Time Temp Pulse Resp B/P Pulse Ox O2 Delivery O2 Flow Rate FiO2 10/05/16 20:00 98.3 94 18 126/91 93 10/05/16 16:00 97.4 89 18 132/78 92 10/05/16 12:00 97.8 80 18 124/72 92 10/05/16 11:48 Nasal Cannula 2.00 97 10/05/16 08:00 97.4 90 20 122/79 92 10/05/16 04:00 98.0 95 18 133/74 97 10/05/16 04:00 Nasal Cannula 2.00 10/05/16 00:00 Nasal Cannula 2.00 10/05/16 00:00 97.4 84 16 110/80 100 I/O 10/04/16 10/04/16 10/04/16 10/05/16 10/05/16 10/05/16 07:00 15:00 23:00 07:00 15:00 23:00 Intake Total 240 ml 120 ml 480 ml Output Total 650 ml 625 ml 550 ml 850 ml Balance -650 ml -385 ml -430 ml -370 ml Intake Oral 240 ml 120 ml 480 ml Output Urine Total 650 ml 625 ml 550 ml 850 ml # Bowel Movements 0 0 0 1 Physical Exam GENERAL: NAD SKIN: Warm and dry. HEAD: Atraumatic. Normocephalic. EYES: Pupils equal and round. No scleral icterus. No injection or drainage. ENT: No nasal bleeding or discharge. Mucous membranes pink and moist. NECK: Trachea midline. No JVD. CARDIOVASCULAR: Regular rate and rhythm. RESPIRATORY: Decreased breath sounds bilaterally GASTROINTESTINAL: Abdomen soft, non-tender, nondistended. Hepatic and splenic margins not palpable. MUSCULOSKELETAL: Anasarca, 2+ pitting edema upper and lower extremities, better than yesterday NEUROLOGICAL: Awake and alert. No obvious cranial nerve deficits. Motor grossly within normal limits. Five out of 5 muscle strength in the arms and legs. Normal speech. PSYCHIATRIC: Appropriate mood and affect; insight and judgment normal. Laboratory Laboratory Tests Test 10/05/16 08:48 Sodium Level 140 MEQ/L Potassium Level 3.8 MEQ/L Chloride Level 95 MEQ/L Carbon Dioxide Level 31.2 MEQ/L Anion Gap 14 MEQ/L Blood Urea Nitrogen 65 MG/DL Creatinine 2.04 MG/DL Estimat Glomerular Filtration 38 ML/MIN Rate Random Glucose 135 MG/DL Calcium Level 9.0 MG/DL Magnesium Level 2.0 MG/DL B-Type Natriuretic Peptide GREATER THAN 5000 PG/ML Assessment and Plan Problem List: (1) Acute exacerbation of congestive heart failure (2) Peripheral edema (3) Acute on chronic renal insufficiency (4) Abnormal liver function test (5) Volume overload Assessment and Plan 1) Acute on chronic systolic HF, most likely due to forgetting to take his medications as he was directed 2) Continue with diuresis as possible, needs to follow weights at home 3) Agree with eventual rehab if possible, but think the patient is denying 4) OOB to chair if possible, help to move fluids some 5) Fluid restriction Problem Qualifiers (1) Acute exacerbation of congestive heart failure: Qualified Code: I50.23 - Acute on chronic systolic congestive heart failure Vimal Gomez DO Oct 05, 2016 22:48
[2016-10-06] VITALS (7 sets, daily range): BP systolic 110–128; BP diastolic 73–85; PULSE 85–95; RESP 16–20; TEMP 97.4–98.6; O2SAT 90–100
[2016-10-06] MEDS: HEPARIN SODIUM - SQ 10,000 UNITS/ML VIAL SQ SCH ×3 (06:24→21:42)
[2016-10-06] MEDS: INSULIN ASPART SUPPLEMENTAL SCALE SQ SCH ×4 (06:25→21:51)
[2016-10-06 07:05] LABS: POTASSIUM 4.2 MEQ/L (3.5-5.1)
[2016-10-06] MEDS ORDERED: FUROSEMIDE 100 MG/10 ML VIAL IV PUSH SCH (09:00)
[2016-10-06] MEDS: FUROSEMIDE 40 MG TAB PO SCH (10:07)
[2016-10-06] MEDS: ASPIRIN EC 81 MG TABEC PO SCH (10:07)
[2016-10-06] MEDS: SACUBITRIL/VALSARTAN 49 MG-51 MG TAB PO SCH (10:08)
[2016-10-06] MEDS: SODIUM CHLORIDE 0.9% FLUSH 5 ML FLUSH FLUSH SCH ×2 (10:08→21:40)
[2016-10-06] MEDS: METOPROLOL TARTRATE 25 MG TAB PO SCH ×2 (10:08→21:40)
--- NOTE | 2016-10-06 10:51 | PD.CARD.PN ---
Subjective Subjective Remarks No chest pain, no shortness of breath, per the patient up and ambulating Objective Medications Current Medications Medications (Trade) Dose Ordered Sig/Deborah Route Start Time Stop Time Status Last Admin (NS Flush) 2 ml UNSCH PRN FLUSH 09/28/16 01:00 10/05/16 00:03 (NS Flush) 2 ml BID FLUSH 09/28/16 09:00 10/06/16 10:08 (Zofran Inj) 4 mg Q6H PRN IVP 09/28/16 01:00 (Narcan Inj) 0.4 mg UNSCH PRN IV 09/28/16 01:00 (Ecotrin Ec) 81 mg DAILY PO 09/28/16 09:00 10/06/16 10:07 (Glucotrol) 5 mg DAILY PO 09/28/16 09:00 Hold 09/29/16 09:40 (Lopressor) 25 mg BID PO 09/28/16 09:00 10/06/16 10:08 (Entresto 49-51 Mg) 1 tab DAILY PO 09/28/16 09:00 10/06/16 10:08 (Aldactone) 25 mg DAILY PO 09/28/16 09:00 Hold 09/29/16 09:40 (D50w (Vial) Inj) 25 ml UNSCH PRN IV PUSH 09/28/16 01:00 09/29/16 21:35 (Glucagon Inj) 1 mg UNSCH PRN OTHER 09/28/16 01:00 09/30/16 18:50 (Heparin Inj) 5,000 units Q8HR SQ 09/28/16 14:00 10/06/16 06:24 (Lasix) 40 mg DAILY PO 10/06/16 09:00 10/06/16 10:07 (Lasix) 20 mg DAILY@1800 PO 10/05/16 18:00 10/05/16 17:25 Vital Signs / I&O Vital Signs Date Time Temp Pulse Resp B/P Pulse Ox O2 Delivery O2 Flow Rate FiO2 10/06/16 08:00 97.5 89 20 128/85 96 10/06/16 04:00 98.6 89 18 119/73 100 10/06/16 00:00 97.4 86 18 110/83 100 10/05/16 20:00 98.3 94 18 126/91 93 10/05/16 20:00 Nasal Cannula 2.00 97 10/05/16 20:00 101 10/05/16 16:00 97.4 89 18 132/78 92 10/05/16 12:00 97.8 80 18 124/72 92 10/05/16 11:48 Nasal Cannula 2.00 97 I/O 10/05/16 10/05/16 10/05/16 10/06/16 10/06/16 10/06/16 07:00 15:00 23:00 07:00 15:00 23:00 Intake Total 120 ml 480 ml 0 ml Output Total 550 ml 850 ml 300 ml 400 ml Balance -430 ml -370 ml -300 ml -400 ml Intake Oral 120 ml 480 ml 0 ml Output Urine Total 550 ml 850 ml 300 ml 400 ml # Bowel Movements 0 1 Physical Exam GENERAL: NAD SKIN: Warm and dry. HEAD: Atraumatic. Normocephalic. EYES: Pupils equal and round. No scleral icterus. No injection or drainage. ENT: No nasal bleeding or discharge. Mucous membranes pink and moist. NECK: Trachea midline. No JVD. CARDIOVASCULAR: Regular rate and rhythm. RESPIRATORY: Decreased breath sounds bilaterally GASTROINTESTINAL: Abdomen soft, non-tender, nondistended. Hepatic and splenic margins not palpable. MUSCULOSKELETAL: Anasarca, 2+ pitting edema upper and lower extremities, better than yesterday NEUROLOGICAL: Awake and alert. No obvious cranial nerve deficits. Motor grossly within normal limits. Five out of 5 muscle strength in the arms and legs. Normal speech. PSYCHIATRIC: Appropriate mood and affect; insight and judgment normal. Laboratory Laboratory Tests Test 10/06/16 06:13 Sodium Level 139 MEQ/L Potassium Level 4.2 MEQ/L Chloride Level 95 MEQ/L Carbon Dioxide Level 35.0 MEQ/L Anion Gap 9 MEQ/L Blood Urea Nitrogen 71 MG/DL Creatinine 2.30 MG/DL Estimat Glomerular Filtration 33 ML/MIN Rate Random Glucose 134 MG/DL Calcium Level 9.0 MG/DL B-Type Natriuretic Peptide GREATER THAN 5000 PG/ML Assessment and Plan Problem List: (1) Acute exacerbation of congestive heart failure (2) Peripheral edema (3) Acute on chronic renal insufficiency (4) Abnormal liver function test (5) Volume overload Assessment and Plan 1) Acute on chronic systolic HF, most likely due to forgetting to take his medications as he was directed 2) Continue with diuresis as possible, needs to follow weights at home 3) Agree with eventual rehab if possible, but think the patient is denying, but really needs close follow up, still would suggest rehab 4) OOB to chair if possible, help to move fluids some 5) Fluid restriction Problem Qualifiers (1) Acute exacerbation of congestive heart failure: Qualified Code: I50.23 - Acute on chronic systolic congestive heart failure Vimal Gomez DO Oct 06, 2016 10:51
[2016-10-06] MEDS: FUROSEMIDE 20 MG TAB PO SCH (17:33)
--- NOTE | 2016-10-06 18:51 | HHI.PR ---
Subjective Remarks as pe rRN patient confused denies cp/sob no fevers or chills stable vital signs Objective Vitals Vital Signs Date Time Temp Pulse Resp B/P Pulse Ox O2 Delivery O2 Flow Rate FiO2 10/06/16 16:00 97.6 88 16 112/77 93 10/06/16 12:00 97.6 85 18 113/80 99 10/06/16 08:00 97.5 89 20 128/85 96 10/06/16 08:00 Nasal Cannula 2.00 10/06/16 04:00 98.6 89 18 119/73 100 10/06/16 00:00 97.4 86 18 110/83 100 10/05/16 20:00 98.3 94 18 126/91 93 10/05/16 20:00 Nasal Cannula 2.00 97 10/05/16 20:00 101 I/O 10/05/16 10/05/16 10/05/16 10/06/16 10/06/16 10/06/16 07:00 15:00 23:00 07:00 15:00 23:00 Intake Total 120 ml 480 ml 0 ml 400 ml Output Total 550 ml 850 ml 300 ml 400 ml 100 ml Balance -430 ml -370 ml -300 ml -400 ml 300 ml Intake Oral 120 ml 480 ml 0 ml 400 ml Output Urine Total 550 ml 850 ml 300 ml 400 ml 100 ml # Bowel Movements 0 1 1 Result Diagram: 10/03/16 1415 10/06/16 0613 Imaging Last Impressions Upper Extremity Ultrasound 10/06/16 0000 Signed Impressions: Service Date/Time: September 19:52 - CONCLUSION: Normal examination. Ivan Coleman MD Chest X-Ray 09/27/16 1736 Signed Impressions: Service Date/Time: Tuesday, September 27, 2016 18:15 - CONCLUSION: Cardiomegaly with minimal increase in interstitial edema. Eldon Collins MD FACR Objective Remarks - GENERAL: This is a well-nourished, well-developed patient, mildly tachypneic SKIN: No rashes, warm and dry , some dry ulcer on the stark HEAD: Atraumatic. Normocephalic. EYES: Pupils equal round and reactive. Extraocular motions intact. No scleral icterus. ENT: Nose without bleeding, or drainage, Airway patent. NECK: Trachea midline. Supple. The is (+) JVD CARDIOVASCULAR: Regular rate and rhythm with systolic murmur 3 out of 6 RESPIRATORY: Fair air entry bilaterally. No wheezes, rales, or rhonchi. GASTROINTESTINAL: Abdomen soft, non-tender, nondistended. Positive bowel sounds MUSCULOSKELETAL: Extremities without clubbing, cyanosis, right upper extremity look edematous when compared to left upper extremity. there is bilateral lower extremity edema. NEUROLOGICAL: Awake and alert. Moves all extremity. Normal speech.no focal neurological deficit Procedures None Medications and IVs Current Medications Medications (Trade) Dose Ordered Sig/Deborah Route Start Time Stop Time Status Last Admin (NS Flush) 2 ml UNSCH PRN FLUSH 09/28/16 01:00 10/05/16 00:03 (NS Flush) 2 ml BID FLUSH 09/28/16 09:00 10/06/16 21:40 (Zofran Inj) 4 mg Q6H PRN IVP 09/28/16 01:00 (Narcan Inj) 0.4 mg UNSCH PRN IV 09/28/16 01:00 (Ecotrin Ec) 81 mg DAILY PO 09/28/16 09:00 10/06/16 10:07 (Glucotrol) 5 mg DAILY PO 09/28/16 09:00 Hold 09/29/16 09:40 (Lopressor) 25 mg BID PO 09/28/16 09:00 10/06/16 21:40 (Entresto 49-51 Mg) 1 tab DAILY PO 09/28/16 09:00 10/06/16 10:08 (Aldactone) 25 mg DAILY PO 09/28/16 09:00 Hold 09/29/16 09:40 (D50w (Vial) Inj) 25 ml UNSCH PRN IV PUSH 09/28/16 01:00 09/29/16 21:35 (Glucagon Inj) 1 mg UNSCH PRN OTHER 09/28/16 01:00 09/30/16 18:50 (Heparin Inj) 5,000 units Q8HR SQ 09/28/16 14:00 10/06/16 21:42 (Lasix) 40 mg DAILY PO 10/06/16 09:00 10/06/16 10:07 (Lasix) 20 mg DAILY@1800 PO 10/05/16 18:00 10/06/16 17:33 Urinary Catheter: No Vascular Central Line Catheter: No A/P Problem List: (1) Acute exacerbation of congestive heart failure ICD Code: I50.9 Status: Acute (2) Peripheral edema ICD Code: R60.9 Status: Acute (3) Hypertension ICD Code: I10 Status: Chronic (4) Systolic CHF ICD Code: I50.20 Status: Chronic (5) Encephalopathy acute ICD Code: G93.40 Status: Acute (6) Edema ICD Code: R60.9 Status: Acute Assessment and Plan Continue Lasix orally - will give one dose of IV lasix check ua r/o uti dueto encephalopathy and confusion Patient has RUE edema - check venous doppler r/o dvt continue aspirin beta bg continue to monitor vital signs supplemental o2 to keep o2 sat > 92% Discharge Planning Hold dc due to confusion and RUE edema Problem Qualifiers (1) Acute exacerbation of congestive heart failure: Qualified Code: I50.23 - Acute on chronic systolic congestive heart failure (2) Edema: Qualified Code: R60.9 - Edema, unspecified type Ender Clement MD Oct 06, 2016 18:51
[2016-10-06] MEDS ORDERED: BUMETANIDE INJ 1 MG/4 ML VIAL IV PUSH ONE (19:15)
--- NOTE | 2016-10-06 21:16 | RADRPT ---
EXAM DATE/TIME: 10/06/2016 19:52 [facility] COMPARISON: No previous studies available for comparison. INDICATIONS : Right arm edema. MEDICAL HISTORY : Congestive heart failure. Hypercholesterolemia. Hypertension. Dyspnea. Hiatal hernia. Diabetes. SURGICAL HISTORY : AICD placement. Orthopedic surgery, right shoulder. Blood transfusions. ENCOUNTER: Initial ACUITY: 3 days PAIN SCORE: 6/10 LOCATION: Right arm. FINDINGS: There is spontaneous flow documented in the brachial, basilic, cephalic, axillary, and subclavian vei ns. The vessels are compressible and augmentation response is documented. No filling defects are se en. The flow is phasic with respiration. Direction of flow in the jugular vein is caudal. CONCLUSION: Normal examination. Ivan Coleman MD on October 06, 2016 at 21:15 Board Certified Radiologist. This report was verified electronically.
[2016-10-06 23:28] LABS: BACTERIA, URINE FEW /hpf; BLOOD, URINE LARGE (NEG); GLUCOSE,URINE NEG (NEG); KETONE, URINE NEG (NEG); MUCUS URINE FEW /lpf (OCC); NITRITE,URINE NEG (NEG); RENAL EPITHELIAL CELLS 17 /hpf; URINE COLOR YELLOW (YELLW/STRAW)
[2016-10-06 23:29] LABS: COMMENT (UR) CULTURE INDICATED; CULTURE IF INDICATED CULTURE INDICATED
[2016-10-07] VITALS (8 sets, daily range): BP systolic 111–143; BP diastolic 74–86; PULSE 79–94; RESP 16–20; TEMP 97–98.2; O2SAT 97–100
[2016-10-07] MEDS: INSULIN ASPART SUPPLEMENTAL SCALE SQ SCH ×4 (06:14→21:00)
[2016-10-07] MEDS: HEPARIN SODIUM - SQ 10,000 UNITS/ML VIAL SQ SCH ×3 (06:15→22:45)
[2016-10-07 08:05] LABS: AUTOMATED NEUTROPHIL # 3.3 TH/MM3 (1.8-7.7); BASOPHIL % 0.8 % (0.0-2.0); HEMATOCRIT 30.9 % (39.0-51.0); LYMPH % 18.2 % (9.0-44.0); LYMPHOCYTE # 0.9 TH/MM3 (1.0-4.8); MEAN CELL VOLUME 79.3 FL (80.0-100.0); MEAN CORPUSCULAR HEMOGLOBIN 25.1 PG (27.0-34.0); MEAN CORPUSCULAR HGB CONC 31.7 % (32.0-36.0); PLATELET COUNT 181 TH/MM3 (150-450); RED CELL DISTRIBUTION WIDTH 20.3 % (11.6-17.2); WHITE BLOOD COUNT 4.8 TH/MM3 (4.0-11.0)
[2016-10-07 08:06] LABS: HEMO FLAGS DIFF FINAL
[2016-10-07 08:31] LABS: ALT (GPT) 52 U/L (12-78); ANION GAP 12 MEQ/L (5-15); AST (GOT) 31 U/L (15-37); BICARBONATE 32.5 MEQ/L (21.0-32.0); CHLORIDE 97 MEQ/L (98-107); GLOMERULAR FILTRATION RATE 31 ML/MIN (>89); MAGNESIUM 2.2 MG/DL (1.5-2.5); POTASSIUM 4.4 MEQ/L (3.5-5.1); SODIUM (NA) 141 MEQ/L (136-145)
[2016-10-07 08:37] LABS: ALKALINE PHOSPHATASE 212 U/L (45-117); BLOOD UREA NITROGEN 75 MG/DL (7-18); TOTAL BILIRUBIN ADULT 2.9 MG/DL (0.2-1.0)
[2016-10-07] MEDS: METOPROLOL TARTRATE 25 MG TAB PO SCH ×2 (10:15→22:46)
[2016-10-07] MEDS: SACUBITRIL/VALSARTAN 49 MG-51 MG TAB PO SCH (10:15)
[2016-10-07] MEDS: SODIUM CHLORIDE 0.9% FLUSH 5 ML FLUSH FLUSH SCH ×2 (10:15→22:50)
[2016-10-07] MEDS: FUROSEMIDE 40 MG TAB PO SCH (10:15)
[2016-10-07] MEDS: ASPIRIN EC 81 MG TABEC PO SCH (10:15)
[2016-10-07] MEDS: cefTRIAXone INJ 1,000 MG in SODIUM CHLORIDE 0.9% INJ 100 ML IV SCH (12:41)
--- NOTE | 2016-10-07 16:53 | PD.CARD.PN ---
Subjective Subjective Remarks Confusion over night, currently AAO... no chest pain, no shortness of breath Objective Medications Current Medications Medications (Trade) Dose Ordered Sig/Deborah Route Start Time Stop Time Status Last Admin (NS Flush) 2 ml UNSCH PRN FLUSH 09/28/16 01:00 10/05/16 00:03 (NS Flush) 2 ml BID FLUSH 09/28/16 09:00 10/07/16 10:15 (Zofran Inj) 4 mg Q6H PRN IVP 09/28/16 01:00 (Narcan Inj) 0.4 mg UNSCH PRN IV 09/28/16 01:00 (Ecotrin Ec) 81 mg DAILY PO 09/28/16 09:00 10/07/16 10:15 (Glucotrol) 5 mg DAILY PO 09/28/16 09:00 Hold 09/29/16 09:40 (Lopressor) 25 mg BID PO 09/28/16 09:00 10/07/16 10:15 (Entresto 49-51 Mg) 1 tab DAILY PO 09/28/16 09:00 10/07/16 10:15 (Aldactone) 25 mg DAILY PO 09/28/16 09:00 Hold 09/29/16 09:40 (D50w (Vial) Inj) 25 ml UNSCH PRN IV PUSH 09/28/16 01:00 09/29/16 21:35 (Glucagon Inj) 1 mg UNSCH PRN OTHER 09/28/16 01:00 09/30/16 18:50 (Heparin Inj) 5,000 units Q8HR SQ 09/28/16 14:00 10/07/16 12:41 (Lasix) 40 mg DAILY PO 10/06/16 09:00 10/07/16 10:15 Furosemide 20 mg 20 mg DAILY@1800 PO 10/05/16 18:00 10/06/16 17:33 (Rocephin Inj/NS Inj) 100 ml @ 200 mls/hr Q24H IV 10/07/16 12:00 10/07/16 12:41 Vital Signs / I&O Vital Signs Date Time Temp Pulse Resp B/P Pulse Ox O2 Delivery O2 Flow Rate FiO2 10/07/16 16:34 97.4 88 20 129/86 97 10/07/16 12:30 97.4 79 18 111/78 100 10/07/16 08:24 97.0 79 20 130/84 100 10/07/16 08:00 Nasal Cannula 2.00 10/07/16 04:00 97.2 87 18 118/84 100 10/07/16 00:30 98.2 82 18 121/82 100 10/06/16 21:45 Nasal Cannula 2.00 10/06/16 20:05 93 10/06/16 20:00 98.5 95 18 114/81 90 I/O 10/06/16 10/06/16 10/06/16 10/07/16 10/07/16 10/07/16 07:00 15:00 23:00 07:00 15:00 23:00 Intake Total 400 ml 240 ml 102 ml 600 ml Output Total 400 ml 100 ml 200 ml 100 ml 500 ml Balance -400 ml 300 ml 40 ml 2 ml 100 ml Intake Oral 400 ml 240 ml 100 ml 600 ml IV Total 2 ml Output Urine Total 400 ml 100 ml 200 ml 100 ml 500 ml # Bowel Movements 1 1 Physical Exam GENERAL: NAD SKIN: Warm and dry. HEAD: Atraumatic. Normocephalic. EYES: Pupils equal and round. No scleral icterus. No injection or drainage. ENT: No nasal bleeding or discharge. Mucous membranes pink and moist. NECK: Trachea midline. No JVD. CARDIOVASCULAR: Regular rate and rhythm. RESPIRATORY: Decreased breath sounds bilaterally GASTROINTESTINAL: Abdomen soft, non-tender, nondistended. Hepatic and splenic margins not palpable. MUSCULOSKELETAL: Anasarca, 2+ pitting edema upper and lower extremities, better than yesterday NEUROLOGICAL: Awake and alert. No obvious cranial nerve deficits. Motor grossly within normal limits. Five out of 5 muscle strength in the arms and legs. Normal speech. PSYCHIATRIC: Appropriate mood and affect; insight and judgment normal. Laboratory Laboratory Tests Test 10/06/16 10/07/16 23:00 07:21 Urine Color YELLOW Urine Turbidity CLOUDY Urine pH 6.0 Urine Specific [place] 1.018 Urine Protein 30 mg/dL Urine Glucose (UA) NEG mg/dL Urine Ketones NEG mg/dL Urine Occult Blood LARGE Urine Nitrite NEG Urine Bilirubin NEG Urine Urobilinogen 2.0 MG/DL Urine Leukocyte Esterase LARGE Urine RBC 33 /hpf Urine WBC /hpf Urine WBC Clumps MANY Urine Renal Epithelial Cells 17 /hpf Urine Bacteria FEW /hpf Urine Mucus FEW /lpf Microscopic Urinalysis Comment CULTURE INDICATED White Blood Count 4.8 TH/MM3 Red Blood Count 3.90 MIL/MM3 Hemoglobin 9.8 GM/DL Hematocrit 30.9 % Mean Corpuscular Volume 79.3 FL Mean Corpuscular Hemoglobin 25.1 PG Mean Corpuscular Hemoglobin 31.7 % Concent Red Cell Distribution Width 20.3 % Platelet Count 181 TH/MM3 Mean Platelet Volume 9.2 FL Neutrophils (%) (Auto) 69.0 % Lymphocytes (%) (Auto) 18.2 % Monocytes (%) (Auto) 11.0 % Eosinophils (%) (Auto) 1.0 % Basophils (%) (Auto) 0.8 % Neutrophils # (Auto) 3.3 TH/MM3 Lymphocytes # (Auto) 0.9 TH/MM3 Monocytes # (Auto) 0.5 TH/MM3 Eosinophils # (Auto) 0.0 TH/MM3 Basophils # (Auto) 0.0 TH/MM3 CBC Comment DIFF FINAL Differential Comment Hematology Comments Sodium Level 141 MEQ/L Potassium Level 4.4 MEQ/L Chloride Level 97 MEQ/L Carbon Dioxide Level 32.5 MEQ/L Anion Gap 12 MEQ/L Blood Urea Nitrogen 75 MG/DL Creatinine 2.47 MG/DL Estimat Glomerular Filtration 31 ML/MIN Rate Random Glucose 107 MG/DL Calcium Level 9.3 MG/DL Phosphorus Level 4.0 MG/DL Magnesium Level 2.2 MG/DL Total Bilirubin 2.9 MG/DL Aspartate Amino Transf 31 U/L (AST/SGOT) Alanine Aminotransferase 52 U/L (ALT/SGPT) Alkaline Phosphatase 212 U/L Total Protein 6.7 GM/DL Albumin 3.3 GM/DL Assessment and Plan Problem List: (1) Acute exacerbation of congestive heart failure (2) Peripheral edema (3) Acute on chronic renal insufficiency (4) Abnormal liver function test (5) Volume overload Assessment and Plan 1) Acute on chronic systolic HF, most likely due to forgetting to take his medications as he was directed 2) Continue with diuresis as possible, needs to follow weights at home 3) Agree with eventual rehab if possible, but think the patient is denying, but really needs close follow up, still would suggest rehab 4) OOB to chair if possible, help to move fluids some 5) Fluid restriction 6) Encephalopathy probably from UTI - Antibiotics per primary 7) Will see PRN, call with questions Problem Qualifiers (1) Acute exacerbation of congestive heart failure: Qualified Code: I50.23 - Acute on chronic systolic congestive heart failure Vimal Gomez DO Oct 07, 2016 16:53
[2016-10-07] MEDS: FUROSEMIDE 20 MG TAB PO SCH (18:01)
--- NOTE | 2016-10-07 20:53 | HHI.PR ---
Subjective Remarks defrred entry - patient seen at 11:00 am patient states breathing is much improved denies fevers/chills still confused Objective Vitals Vital Signs Date Time Temp Pulse Resp B/P Pulse Ox O2 Delivery O2 Flow Rate FiO2 10/07/16 16:34 97.4 88 20 129/86 97 10/07/16 12:30 97.4 79 18 111/78 100 10/07/16 08:24 97.0 79 20 130/84 100 10/07/16 08:00 Nasal Cannula 2.00 10/07/16 08:00 89 10/07/16 04:00 97.2 87 18 118/84 100 10/07/16 00:30 98.2 82 18 121/82 100 10/06/16 21:45 Nasal Cannula 2.00 I/O 10/06/16 10/06/16 10/06/16 10/07/16 10/07/16 10/07/16 07:00 15:00 23:00 07:00 15:00 23:00 Intake Total 400 ml 240 ml 102 ml 600 ml Output Total 400 ml 100 ml 200 ml 100 ml 500 ml Balance -400 ml 300 ml 40 ml 2 ml 100 ml Intake Oral 400 ml 240 ml 100 ml 600 ml IV Total 2 ml Output Urine Total 400 ml 100 ml 200 ml 100 ml 500 ml # Bowel Movements 1 1 Result Diagram: 10/07/16 0721 10/07/16 0721 Imaging Last Impressions Upper Extremity Ultrasound 10/06/16 0000 Signed Impressions: Service Date/Time: September 19:52 - CONCLUSION: Normal examination. Ivan Coleman MD Chest X-Ray 09/27/16 1736 Signed Impressions: Service Date/Time: Tuesday, September 27, 2016 18:15 - CONCLUSION: Cardiomegaly with minimal increase in interstitial edema. Eldon Collins MD FACR Objective Remarks GENERAL: This is a well-nourished, well-developed patient, in no apparent distress. SKIN: No rashes, warm and dry , some dry ulcer on the stark HEAD: Atraumatic. Normocephalic. EYES: Pupils equal round and reactive. Extraocular motions intact. No scleral icterus. ENT: Nose without bleeding, or drainage, Airway patent. NECK: Trachea midline. Supple CARDIOVASCULAR: Regular rate and rhythm with systolic murmur 3 out of 6 RESPIRATORY: Fair air entry bilaterally. No wheezes, rales, or rhonchi. GASTROINTESTINAL: Abdomen soft, non-tender, nondistended. Positive bowel sounds MUSCULOSKELETAL: Extremities without clubbing, cyanosis, edema in RUE, (+) 1 edema in BL lower extremities. Pedal pulses appreciated NEUROLOGICAL: Awake and alert. Moves all extremity. Normal speech.no focal neurological deficit Procedures None Medications and IVs Current Medications Medications (Trade) Dose Ordered Sig/Deborah Route Start Time Stop Time Status Last Admin (NS Flush) 2 ml UNSCH PRN FLUSH 09/28/16 01:00 10/05/16 00:03 (NS Flush) 2 ml BID FLUSH 09/28/16 09:00 10/07/16 10:15 (Zofran Inj) 4 mg Q6H PRN IVP 09/28/16 01:00 (Narcan Inj) 0.4 mg UNSCH PRN IV 09/28/16 01:00 (Ecotrin Ec) 81 mg DAILY PO 09/28/16 09:00 10/07/16 10:15 (Glucotrol) 5 mg DAILY PO 09/28/16 09:00 Hold 09/29/16 09:40 (Lopressor) 25 mg BID PO 09/28/16 09:00 10/07/16 10:15 (Entresto 49-51 Mg) 1 tab DAILY PO 09/28/16 09:00 10/07/16 10:15 (Aldactone) 25 mg DAILY PO 09/28/16 09:00 Hold 09/29/16 09:40 (D50w (Vial) Inj) 25 ml UNSCH PRN IV PUSH 09/28/16 01:00 09/29/16 21:35 (Glucagon Inj) 1 mg UNSCH PRN OTHER 09/28/16 01:00 09/30/16 18:50 (Heparin Inj) 5,000 units Q8HR SQ 09/28/16 14:00 10/07/16 12:41 (Lasix) 40 mg DAILY PO 10/06/16 09:00 10/07/16 10:15 Furosemide 20 mg 20 mg DAILY@1800 PO 10/05/16 18:00 10/07/16 18:01 (Rocephin Inj/NS Inj) 100 ml @ 200 mls/hr Q24H IV 10/07/16 12:00 10/07/16 12:41 A/P Problem List: (1) Acute exacerbation of congestive heart failure ICD Code: I50.9 Status: Acute (2) Peripheral edema ICD Code: R60.9 Status: Acute Assessment and Plan Encephalopathy due to uti start the patient on Rocephin IV fu urine culture and adjust antibiotic acordingly continue Lasix for Acute systolic heart failure fu cardiology recommendations RUE Edema - no DVT in RUE Problem Qualifiers (1) Acute exacerbation of congestive heart failure: Qualified Code: I50.23 - Acute on chronic systolic congestive heart failure Ender Clement MD Oct 07, 2016 20:53
[2016-10-08] VITALS (8 sets, daily range): BP systolic 109–130; BP diastolic 71–82; PULSE 75–91; RESP 16–20; TEMP 97–97.7; O2SAT 96–100
[2016-10-08] MEDS: INSULIN ASPART SUPPLEMENTAL SCALE SQ SCH ×4 (05:39→21:22)
[2016-10-08] MEDS: HEPARIN SODIUM - SQ 10,000 UNITS/ML VIAL SQ SCH ×3 (05:56→21:12)
[2016-10-08] MEDS: METOPROLOL TARTRATE 25 MG TAB PO SCH ×2 (08:34→21:12)
[2016-10-08] MEDS: ASPIRIN EC 81 MG TABEC PO SCH (08:34)
[2016-10-08] MEDS: FUROSEMIDE 40 MG TAB PO SCH (08:35)
[2016-10-08] MEDS: SACUBITRIL/VALSARTAN 49 MG-51 MG TAB PO SCH (08:35)
[2016-10-08] MEDS: SODIUM CHLORIDE 0.9% FLUSH 5 ML FLUSH FLUSH SCH ×2 (08:37→21:12)
[2016-10-08] MEDS: cefTRIAXone INJ 1,000 MG in SODIUM CHLORIDE 0.9% INJ 100 ML IV SCH (12:46)
[2016-10-08] MEDS ORDERED: CEFT500T3 PO (14:12)
--- NOTE | 2016-10-08 14:29 | HHI.PR ---
Subjective Remarks Patient feels much better denies cp/sob denies fevers/chills/cough denies diarrhea/rash Objective Vitals Vital Signs Date Time Temp Pulse Resp B/P Pulse Ox O2 Delivery O2 Flow Rate FiO2 10/08/16 10:01 98 Nasal Cannula 2.00 10/08/16 08:55 97.3 75 20 130/81 100 10/08/16 07:15 Nasal Cannula 2.00 97 10/08/16 05:23 97.1 89 18 113/71 100 10/08/16 00:00 97.3 87 20 109/78 99 10/07/16 22:40 Nasal Cannula 2.00 10/07/16 20:50 85 10/07/16 20:00 97.7 94 16 143/74 100 10/07/16 16:34 97.4 88 20 129/86 97 I/O 10/07/16 10/07/16 10/07/16 10/08/16 10/08/16 10/08/16 07:00 15:00 23:00 07:00 15:00 23:00 Intake Total 102 ml 600 ml 360 ml 0 ml Output Total 100 ml 500 ml 250 ml 475 ml Balance 2 ml 100 ml 110 ml -475 ml Intake Oral 100 ml 600 ml 360 ml 0 ml IV Total 2 ml Output Urine Total 100 ml 500 ml 250 ml 475 ml # Bowel Movements 1 0 Result Diagram: 10/07/16 0721 10/07/16 0721 Imaging Last Impressions Upper Extremity Ultrasound 10/06/16 0000 Signed Impressions: Service Date/Time: September 19:52 - CONCLUSION: Normal examination. Ivan Coleman MD Chest X-Ray 09/27/16 1736 Signed Impressions: Service Date/Time: Tuesday, September 27, 2016 18:15 - CONCLUSION: Cardiomegaly with minimal increase in interstitial edema. Eldon Collins MD FACR Objective Remarks GENERAL: This is a well-nourished, well-developed patient,nad SKIN: No rashes, warm and dry , some dry ulcer on the stark HEAD: Atraumatic. Normocephalic. EYES: Pupils equal round and reactive. Extraocular motions intact. No scleral icterus. ENT: Nose without bleeding, or drainage, Airway patent. NECK: Trachea midline. Supple. The is (+) JVD CARDIOVASCULAR: Regular rate and rhythm with systolic murmur 3 out of 6 RESPIRATORY: Fair air entry bilaterally. No wheezes, rales, or rhonchi. GASTROINTESTINAL: Abdomen soft, non-tender, nondistended. Positive bowel sounds MUSCULOSKELETAL: Extremities without clubbing, cyanosis, right upper extremity edema is coming down. Palpable pulses in all extremities.. (+) 1 edema in BL lower extremities. NEUROLOGICAL: Awake and alert. Moves all extremity. Normal speech.no focal neurological deficit Procedures None Medications and IVs Current Medications Medications (Trade) Dose Ordered Sig/Deborah Route Start Time Stop Time Status Last Admin (NS Flush) 2 ml UNSCH PRN FLUSH 09/28/16 01:00 10/05/16 00:03 (NS Flush) 2 ml BID FLUSH 09/28/16 09:00 10/08/16 08:37 (Zofran Inj) 4 mg Q6H PRN IVP 09/28/16 01:00 (Narcan Inj) 0.4 mg UNSCH PRN IV 09/28/16 01:00 (Ecotrin Ec) 81 mg DAILY PO 09/28/16 09:00 10/08/16 08:34 (Glucotrol) 5 mg DAILY PO 09/28/16 09:00 Hold 09/29/16 09:40 (Lopressor) 25 mg BID PO 09/28/16 09:00 10/08/16 08:34 (Entresto 49-51 Mg) 1 tab DAILY PO 09/28/16 09:00 10/08/16 08:35 (Aldactone) 25 mg DAILY PO 09/28/16 09:00 Hold 09/29/16 09:40 (D50w (Vial) Inj) 25 ml UNSCH PRN IV PUSH 09/28/16 01:00 09/29/16 21:35 (Glucagon Inj) 1 mg UNSCH PRN OTHER 09/28/16 01:00 09/30/16 18:50 (Heparin Inj) 5,000 units Q8HR SQ 09/28/16 14:00 10/08/16 12:45 (Lasix) 40 mg DAILY PO 10/06/16 09:00 10/08/16 08:35 Furosemide 20 mg 20 mg DAILY@1800 PO 10/05/16 18:00 10/07/16 18:01 (Rocephin Inj/NS Inj) 100 ml @ 200 mls/hr Q24H IV 10/07/16 12:00 10/08/16 12:46 Urinary Catheter: No Vascular Central Line Catheter: No A/P Problem List: (1) Acute exacerbation of congestive heart failure ICD Code: I50.9 Status: Resolved (2) Peripheral edema ICD Code: R60.9 Status: Chronic (3) Encephalopathy acute ICD Code: G93.40 Status: Resolved (4) Hypertension ICD Code: I10 Status: Chronic (5) Acute on chronic renal insufficiency ICD Code: N28.9 Status: Resolved (6) UTI (urinary tract infection) ICD Code: N39.0 Status: Resolved (7) Pulmonary nodule ICD Code: R91.1 Status: Chronic (8) CAD (coronary artery disease) ICD Code: I25.10 Status: Chronic Assessment and Plan Continue Lasix orally - will give one dose of IV lasix ua (+) Patient on IV Rocephin. Urine culture grew K pneumonia - pansensitive - Will DC on Cefuroxim DVT ruled out with rue doppler ultrasound continue aspirin beta bg upon dc continue to monitor vital signs supplemental o2 to keep o2 sat > 92% fu with primary and cardiology Mat Discharge home with home health today Discharge Planning DC home today with home health Problem Qualifiers (1) Acute exacerbation of congestive heart failure: Qualified Code: I50.23 - Acute on chronic systolic congestive heart failure Ender Clement MD Oct 08, 2016 14:29
--- NOTE | 2016-10-08 16:32 | HHI.PR ---
Addendum To [facility] Progress Not Reason for addendum: Additonal documentation (notified by the RN that the patient can not go home. d/w the brother at the bedside; stating that the patient lives alone and he can not go home. insteated he wants him to be discharged to SNF. will change the discharge planning to SNF- d/w RN at the bedside.) Ofe Morales MD Oct 08, 2016 16:32
[2016-10-08] MEDS: FUROSEMIDE 20 MG TAB PO SCH (16:59)
[2016-10-09] VITALS: BP 100/77; PULSE 84; RESP 18; TEMP 97.5; O2SAT 100
[2016-10-09 04:00] VITALS: BP 110/77; PULSE 76; RESP 16; TEMP 97.4; O2SAT 99
[2016-10-09] MEDS: HEPARIN SODIUM - SQ 10,000 UNITS/ML VIAL SQ SCH ×2 (05:33→12:18)
[2016-10-09] MEDS: INSULIN ASPART SUPPLEMENTAL SCALE SQ SCH ×3 (05:35→16:00)
[2016-10-09 08:00] VITALS: BP 138/97; PULSE 100; RESP 18; TEMP 97.3; O2SAT 100
[2016-10-09] MEDS: SACUBITRIL/VALSARTAN 49 MG-51 MG TAB PO SCH (09:19)
[2016-10-09] MEDS: ASPIRIN EC 81 MG TABEC PO SCH (09:19)
[2016-10-09] MEDS: METOPROLOL TARTRATE 25 MG TAB PO SCH (09:19)
[2016-10-09] MEDS: FUROSEMIDE 40 MG TAB PO SCH (09:19)
[2016-10-09] MEDS: SODIUM CHLORIDE 0.9% FLUSH 5 ML FLUSH FLUSH SCH (09:20)
--- NOTE | 2016-10-09 09:47 | HHI.PR ---
Subjective Remarks resting comfortably with no distress. no chest pain or sob. no new complaints. Objective Vitals Vital Signs Date Time Temp Pulse Resp B/P Pulse Ox O2 Delivery O2 Flow Rate FiO2 10/09/16 04:00 97.4 76 16 110/77 99 10/09/16 00:00 97.5 84 18 100/77 100 10/08/16 20:00 Nasal Cannula 2.00 97 10/08/16 20:00 90 10/08/16 20:00 97.5 91 16 112/76 97 10/08/16 17:11 97.0 88 20 116/82 96 10/08/16 12:30 97.7 83 20 121/81 96 10/08/16 10:01 98 Nasal Cannula 2.00 I/O 10/08/16 10/08/16 10/08/16 10/09/16 10/09/16 10/09/16 07:00 15:00 23:00 07:00 15:00 23:00 Intake Total 0 ml 600 ml 240 ml 120 ml Output Total 475 ml 400 ml 250 ml 850 ml Balance -475 ml 200 ml -10 ml -730 ml Intake Oral 0 ml 600 ml 240 ml 120 ml Output Urine Total 475 ml 400 ml 250 ml 850 ml # Bowel Movements 0 0 0 Result Diagram: 10/07/16 0721 10/07/16 0721 Imaging Last Impressions Upper Extremity Ultrasound 10/06/16 0000 Signed Impressions: Service Date/Time: September 19:52 - CONCLUSION: Normal examination. Ivan Coleman MD Chest X-Ray 09/27/16 1736 Signed Impressions: Service Date/Time: Tuesday, September 27, 2016 18:15 - CONCLUSION: Cardiomegaly with minimal increase in interstitial edema. Eldon Collins MD FACR Objective Remarks GENERAL: This is a well-nourished, well-developed patient, in no apparent distress. CARDIOVASCULAR: Regular rate and regular rhythm without murmurs, gallops, or rubs. RESPIRATORY: Clear to auscultation. Breath sounds equal bilaterally. No wheezes , rales, or rhonchi. GASTROINTESTINAL: Abdomen soft, non-tender, nondistended. Normal, active bowel sounds MUSCULOSKELETAL: Extremities with bilateral pedal edema. NEURO: Alert & Oriented x4 to person, place, time, situation. Moves all ext x4 Procedures None Medications and IVs Current Medications IV Flush (NS Flush) 2 ml UNSCH PRN IVF FLUSH AFTER USING IV ACCESS Last administered on 09/27/16 20:10; Start 09/27/16 at 17:45; Stop 09/28/16 at 00:58 ; Status DC Bumetanide (Bumex Inj) 1 mg ONCE ONCE IV PUSH Last administered on 09/27/16 20:10; Start 09/27/16 at 19:30; Stop 09/27/16 at 19:31; Status DC IV Flush (NS Flush) 2 ml UNSCH PRN FLUSH FLUSH AFTER USING IV ACCESS Last administered on 10/05/16 00:03; Start 09/28/16 at 01:00 IV Flush (NS Flush) 2 ml BID FLUSH Last administered on 10/09/16 09:20; Start 09/28/16 at 09:00 Ondansetron HCl (Zofran Inj) 4 mg Q6H PRN IVP NAUSEA OR VOMITING; Start at 01:00 Naloxone HCl (Narcan Inj) 0.4 mg UNSCH PRN IV SEE LABEL COMMENTS; Start at 01:00 Aspirin (Ecotrin Ec) 81 mg DAILY PO Last administered on 10/09/16 09:19; Start 09/28/16 at 09:00 Glipizide (Glucotrol) 5 mg DAILY PO Last administered on 09/29/16 09:40; Start 09/28/16 at 09:00; Status Hold Metoprolol Tartrate (Lopressor) 25 mg BID PO Last administered on 10/09/16 09: 19; Start 09/28/16 at 09:00 Sacubitril/ Valsartan (Entresto 49-51 Mg) 1 tab DAILY PO Last administered on 09:19; Start 09/28/16 at 09:00 Spironolactone (Aldactone) 25 mg DAILY PO Last administered on 09/29/16 09:40 ; Start 09/28/16 at 09:00; Status Hold Furosemide (Lasix Inj) 40 mg BID@ IV PUSH Last administered on 09/30/16 17:03; Start 09/28/16 at 09:00; Stop 09/30/16 at 19:35; Status DC Furosemide (Lasix Inj) 40 mg ONCE ONCE IV PUSH Last administered on 09/28/16 01:34; Start 09/28/16 at 01:00; Stop 09/28/16 at 01:02; Status DC Dextrose (D50w (Vial) Inj) 25 ml UNSCH PRN IV PUSH HYPOGLYCEMIA-SEE COMMENTS Last administered on 09/29/16 21:35; Start 09/28/16 at 01:00 Glucagon (Glucagon Inj) 1 mg UNSCH PRN OTHER HYPOGLYCEMIA-SEE COMMENTS Last administered on 09/30/16 18:50; Start 09/28/16 at 01:00 Insulin Aspart (NovoLOG SUPPLEMENTAL SCALE) 1 ACHS SLIDING SCALE SQ Last administered on 10/08/16 21:22; Start 09/28/16 at 07:00 Heparin Sodium (Porcine) (Heparin Inj) 5,000 units Q8HR SQ Last administered on 10/09/16 05:33; Start 09/28/16 at 14:00 Influenza Virus Vaccine (Flu (Quadrivalent) Vaccine Inj) 0.5 ml ONCE ONCE IM Last administered on 09/29/16 09:48; Start 09/29/16 at 10:00; Stop 09/29/16 at 10:01; Status DC Pneumococcal Polyvalent Vaccine (Pneumovax-23 Inj) 25 mcg ONCE ONCE IM Last administered on 09/29/16 09:50; Start 09/29/16 at 10:00; Stop 09/29/16 at 10:01 ; Status DC Sodium Polystyrene Sulfonate (Kayexalate Liq) 15 gm QID PO Last administered on 10/01/16 08:50; Start 09/30/16 at 13:00; Stop 10/01/16 at 09:01; Status DC Insulin Human Regular (NovoLIN R INJ) 10 units ONCE ONCE IV PUSH Last administered on 09/30/16 14:02; Start 09/30/16 at 12:45; Stop 09/30/16 at 12:46 ; Status DC Dextrose 50 ml 50 ml ONCE ONCE IV PUSH Last administered on 09/30/16 14:05; Start 09/30/16 at 12:45; Stop 09/30/16 at 12:46; Status DC Dextrose 1,000 ml @ 42 mls/hr [id number] IV ; Start 09/30/16 at 18:45; Stop at 18:51; Status DC Dextrose/Sodium Chloride (D5W-1/2 NS 1000 ml Inj) 1,000 ml @ 40 mls/hr Q24H IV Last administered on 09/30/16 19:00; Start 09/30/16 at 19:00; Stop 10/01/16 at 10:57; Status DC Furosemide (Lasix Inj) 40 mg Q8H IV PUSH Last administered on 10/01/16 08:48; Start 10/01/16 at 01:00; Stop 10/01/16 at 10:57; Status DC Furosemide (Lasix Inj) 40 mg Q12H IV PUSH ; Start 10/01/16 at 12:00; Stop at 14:02; Status DC Albumin Human (Albumin 25% Inj) 25 gm Q12H IV Last administered on 10/02/16 23 :05; Start 10/01/16 at 11:00; Stop 10/02/16 at 23:01; Status DC Sodium Polystyrene Sulfonate (Kayexalate Liq) 15 gm ONCE ONCE PO Last administered on 10/01/16 14:34; Start 10/01/16 at 11:00; Stop 10/01/16 at 11:12 ; Status DC Furosemide (Lasix Inj) 40 mg ONCE PRN IV PUSH GIVE AFTER ALBUMIN ADMINSTRTN Last administered on 10/01/16 14:56; Start 10/01/16 at 13:45; Stop 10/01/16 at 23:59; Status DC Furosemide (Lasix Inj) 40 mg Q12H IV PUSH Last administered on 10/02/16 12:00 ; Start 10/02/16 at 00:00; Stop 10/02/16 at 14:30; Status DC Furosemide (Lasix Inj) 40 mg Q12H IV PUSH Last administered on 10/03/16 10:56 ; Start 10/02/16 at 23:30; Stop 10/03/16 at 11:18; Status DC Furosemide (Lasix Inj) 60 mg Q12H IV PUSH Last administered on 10/05/16 12:18 ; Start 10/03/16 at 12:00; Stop 10/05/16 at 13:57; Status DC Metolazone (Zaroxolyn) 5 mg ONCE ONCE PO Last administered on 10/04/16 13:31 ; Start 10/04/16 at 14:00; Stop 10/04/16 at 14:01; Status DC Potassium Chloride (KCl) 30 meq ONCE ONCE PO Last administered on 10/05/16 12 :58; Start 10/05/16 at 12:45; Stop 10/05/16 at 12:46; Status DC Furosemide (Lasix Inj) 40 mg DAILY IV PUSH ; Start 10/06/16 at 09:00; Stop 10/06 at 09:00; Status DC Furosemide (Lasix) 40 mg DAILY PO Last administered on 10/09/16 09:19; Start 10/06/16 at 09:00 Furosemide (Lasix) 20 mg DAILY@1800 PO Last administered on 10/08/16 16:59; Start 10/05/16 at 18:00 Bumetanide 1 mg 1 mg ONCE ONCE IV PUSH Last administered on 10/06/16 21:40; Start 10/06/16 at 19:15; Stop 10/06/16 at 19:25; Status DC Ceftriaxone Sodium/Sodium Chloride (Rocephin Inj/NS Inj) 100 ml @ 200 mls/hr Q24H IV Last administered on 10/08/16 12:46; Start 10/07/16 at 12:00 A/P Assessment and Plan (1) Acute exacerbation of congestive heart failure ICD Code: I50.9 Status: Resolved (2) Peripheral edema ICD Code: R60.9 Status: Chronic (3) Encephalopathy acute ICD Code: G93.40 Status: Resolved (4) Hypertension ICD Code: I10 Status: Chronic (5) Acute on chronic renal insufficiency ICD Code: N28.9 Status: Resolved (6) UTI (urinary tract infection) ICD Code: N39.0 Status: Resolved (7) Pulmonary nodule ICD Code: R91.1 Status: Chronic (8) CAD (coronary artery disease) ICD Code: I25.10 Status: Chronic plan: Continue Lasix orally - Urine culture grew K pneumonia - pansensitive - Will DC on Cefuroxim DVT ruled out with rue doppler ultrasound continue aspirin beta bg upon dc supplemental o2 to keep o2 sat > 92% Discharge Planning dc to SNF when arrangements made. see med list. f/u; pcp and cardiology. d/w the patient. Ofe Morales MD Oct 09, 2016 09:47
--- NOTE | 2016-10-09 09:51 | HHI.DS ---
Discharge Summary Admission Date Sep 27, 2016 at 19:58 Discharge Date: Oct 09, 2016 Admitting Diagnosis CHF exacerbation (1) Acute exacerbation of congestive heart failure ICD Code: I50.9 Diagnosis: Principal (2) Peripheral edema ICD Code: R60.9 Diagnosis: Principal (3) Encephalopathy acute ICD Code: G93.40 Diagnosis: Principal (4) Hypertension ICD Code: I10 Diagnosis: Secondary (5) Acute on chronic renal insufficiency ICD Code: N28.9 Diagnosis: Principal (6) UTI (urinary tract infection) ICD Code: N39.0 Diagnosis: Secondary (7) CAD (coronary artery disease) ICD Code: I25.10 Diagnosis: Secondary Procedures None Brief History - From Admission History from patient, ER PA communication, and review of medical records. Patient reported that he came back to the hospital because he has been swelling all over. He is also reporting shortness of breath on exertion. He states he lives alone. He reports he ambulates without a walker. Her states that it is now getting more and more difficult to bear weight on his lower extremities because it has been getting more and more swollen. He denies any chest pains. Patient initially claims that he was not discharged on Lasix. He initially thinks he does not have history of congestive heart failure but later he remembers that he did have AICD placed in his previous admission last month. Medical records from previous hospitalization reviewed. 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 He was admitted at that time for CHF exacerbation as well. Patient's brother who usually checks in on him every day was present in ER and discussed with ER PA. He believes that patient may not be taking his medications as prescribed. When asked about this, patient states he might be forgetting to take his medications as well. States that he would not do that again. Apart from that, patient denies any fevers/nausea/vomiting/diarrhea. Denies seeing any blood in his stool or urine. CBC/BMP: 10/07/16 0721 10/07/16 0721 Significant Findings Laboratory Tests Test 10/06/16 10/07/16 23:00 07:21 Urine Turbidity CLOUDY (CLEAR) Urine Protein 30 mg/dL (NEG-TRACE) Urine Occult Blood LARGE (NEG) Urine Leukocyte Esterase LARGE (NEG) Urine RBC 33 /hpf (0-3) Urine WBC Clumps MANY (NONE) Urine Bacteria FEW /hpf (NONE) Urine Mucus FEW /lpf (OCC) Red Blood Count 3.90 MIL/MM3 (4.50-5.90) Hemoglobin 9.8 GM/DL (13.0-17.0) Hematocrit 30.9 % (39.0-51.0) Mean Corpuscular Volume 79.3 FL (80.0-100.0) Mean Corpuscular Hemoglobin 25.1 PG (27.0-34.0) Mean Corpuscular Hemoglobin 31.7 % Concent (32.0-36.0) Red Cell Distribution Width 20.3 % (11.6-17.2) Monocytes (%) (Auto) 11.0 % (0.0-8.0) Lymphocytes # (Auto) 0.9 TH/MM3 (1.0-4.8) Chloride Level 97 MEQ/L (98-107) Carbon Dioxide Level 32.5 MEQ/L (21.0-32.0) Blood Urea Nitrogen 75 MG/DL (7-18) Creatinine 2.47 MG/DL (0.60-1.30) Estimat Glomerular Filtration 31 ML/MIN (>89) Rate Random Glucose 107 MG/DL (74-106) Total Bilirubin 2.9 MG/DL (0.2-1.0) Alkaline Phosphatase 212 U/L (45-117) Albumin 3.3 GM/DL (3.4-5.0) Imaging Last Impressions Upper Extremity Ultrasound 10/06/16 0000 Signed Impressions: Service Date/Time: September 19:52 - CONCLUSION: Normal examination. Ivan Coleman MD Chest X-Ray 09/27/16 1736 Signed Impressions: Service Date/Time: Tuesday, September 27, 2016 18:15 - CONCLUSION: Cardiomegaly with minimal increase in interstitial edema. Eldon Collins MD FACR PE at Discharge GENERAL: This is a well-nourished, well-developed patient, in no apparent distress. CARDIOVASCULAR: Regular rate and regular rhythm without murmurs, gallops, or rubs. RESPIRATORY: Clear to auscultation. Breath sounds equal bilaterally. No wheezes , rales, or rhonchi. GASTROINTESTINAL: Abdomen soft, non-tender, nondistended. Normal, active bowel sounds MUSCULOSKELETAL: Extremities with bilateral pedal edema. NEURO: Alert & Oriented x4 to person, place, time, situation. Moves all ext x4 Hospital Course (1) Acute exacerbation of congestive heart failure ICD Code: I50.9 Status: Resolved (2) Peripheral edema ICD Code: R60.9 Status: Chronic (3) Encephalopathy acute ICD Code: G93.40 Status: Resolved (4) Hypertension ICD Code: I10 Status: Chronic (5) Acute on chronic renal insufficiency ICD Code: N28.9 Status: Resolved (6) UTI (urinary tract infection) ICD Code: N39.0 Status: Resolved (7) Pulmonary nodule ICD Code: R91.1 Status: Chronic (8) CAD (coronary artery disease) ICD Code: I25.10 Status: Chronic plan: Continue Lasix orally - Urine culture grew K pneumonia - pansensitive - Will DC on Cefuroxim DVT ruled out with rue doppler ultrasound continue aspirin beta bg upon dc supplemental o2 to keep o2 sat > 92% Pt Condition on Discharge: Fair Discharge Disposition: Discharge to SNF Discharge Time: <= 30 minutes Discharge Instructions DIET: Follow Instructions for: Heart Healthy Diet, Diabetic Diet Additional Diet Instructions: Completely avoid salty canned food Fluid Restrictions: 1500 cc per day Activities you can perform: Regular-No Restrictions, See Additionl Instruction Other Activity Instructions: Per PT, home health Follow up Referrals: Cardiology - 2 Weeks with Vimal Gomez DO PCP Follow-up - 1 Week New Medications: Cefuroxime (Ceftin) 500 Mg Tab 500 MG PO BID Infection #16 Ref 0 TAB Furosemide (Lasix) 20 Mg Tab 20 MG PO qhs chf #30 Ref 0 TAB Continued Medications: Acetaminophen (Acetaminophen) 325 Mg Tab 650 MG PO Q4H PRN PAIN 1 TO 10 AND/OR AGITATION #60 TAB Aspirin (Aspirin) 81 Mg Tabdr 81 MG PO DAILY TAB Furosemide (Lasix) 40 Mg Tab 40 MG PO DAILY #30 Ref 0 TAB Glipizide (Glipizide) 5 Mg Tab 5 MG PO DAILY Take 30 minutes before a meal Blood Sugar Management #30 Ref 0 TAB Metoprolol Tartrate (Metoprolol Tartrate) 25 Mg Tab 25 MG PO BID #60 Ref 0 TAB Sacubitril-Valsartan (Entresto) 49-51 Mg Tab 1 TAB PO DAILY Heart Failure #30 Ref 0 TAB Spironolactone (Spironolactone) 25 Mg Tab 25 MG PO DAILY #30 Ref 0 TAB Discontinued Medications: Sacubitril-Valsartan (Entresto) 49-51 Mg Tab 1 TAB PO BID #60 TAB Ofe Morales MD Oct 09, 2016 09:51
[2016-10-09 12:00] VITALS: BP 108/71; PULSE 77; RESP 18; TEMP 97.4; O2SAT 98
[2016-10-09] MEDS: cefTRIAXone INJ 1,000 MG in SODIUM CHLORIDE 0.9% INJ 100 ML IV SCH (12:00)
[2016-10-09 16:32] VITALS: PULSE 74
== END 2016-10-09 17:27 | DRG 291 ==
LOC: NEPE 16:23 → NEDA 19:58 → NEDH 23:58 → N04A 09-28 17:27
PROVIDERS: ADMIT Internal Medicine; ATTEND Internal Medicine
DX: I13.0 Hypertensive heart and chronic kidney disease with heart failure and stage 1 through stage 4 chronic kidney disease, or unspecified chronic kidney disease (principal); I50.23 Acute on chronic systolic (congestive) heart failure; G93.40 Encephalopathy, unspecified; E11.22 Type 2 diabetes mellitus with diabetic chronic kidney disease; E11.649 Type 2 diabetes mellitus with hypoglycemia without coma; I42.9 Cardiomyopathy, unspecified; N18.3 Chronic kidney disease, stage 3 (moderate); K76.1 Chronic passive congestion of liver; N39.0 Urinary tract infection, site not specified; E88.09 Other disorders of plasma-protein metabolism, not elsewhere classified; Z95.810 Presence of automatic (implantable) cardiac defibrillator; Z91.11 Patient's noncompliance with dietary regimen; Z91.14 Patient's other noncompliance with medication regimen; Z79.84 Long term (current) use of oral hypoglycemic drugs; Z79.82 Long term (current) use of aspirin; E78.5 Hyperlipidemia, unspecified; E87.5 Hyperkalemia; I25.10 Atherosclerotic heart disease of native coronary artery without angina pectoris; B96.1 Klebsiella pneumoniae [K. pneumoniae] as the cause of diseases classified elsewhere; R94.5 Abnormal results of liver function studies; R91.1 Solitary pulmonary nodule; Z87.891 Personal history of nicotine dependence; Z23 Encounter for immunization
CPT/HCPCS: 71010; 76937; 80048; 80053; 80076; 81001; 82550; 82947; 82948; 83735; 83880; 84100; 84132; 84484; 85025; 85610; 85730; 87077; 87086; 87186; 90471; 90472; 90686; 90732; 93005; 93971; G0008; G0009; J0696; J1610; J1644; J1815; J1940; P9047; Q2038

== ENCOUNTER 2016-11-15 23:29 | Inpatient (IN) | payer MEDICARE ==
[~2016-11-15] VITALS: Ht 190.5 cm; Wt 92.2 kg
[~2016-11-15 23:29] MED LIST changes: -BUME1TAB PO; -CARV3.125 PO; +CEFT500T3 PO; +FURO1TAB60 PO; +FURO1TAB62 PO; +METO25TA3 PO; -SIMV20TA PO; +SPIR25TA PO
[2016-11-15 23:31] VITALS: BP 102/68; PULSE 95; RESP 14; TEMP 97.6
[2016-11-16] VITALS (17 sets, daily range): BP systolic 97–133; BP diastolic 59–85; PULSE 86–97; RESP 16–20; TEMP 97.2–98.2; O2SAT 97–100
[2016-11-16] MEDS ORDERED: SODIUM CHLORIDE 0.9% FLUSH 5 ML FLUSH IVF PRN
[2016-11-16 00:10] LABS: AUTOMATED NEUTROPHIL # 4.3 TH/MM3 (1.8-7.7); BASOPHIL # 0.1 TH/MM3 (0-0.2); BASOPHIL % 0.9 % (0.0-2.0); EOSINOPHIL # 0.3 TH/MM3 (0-0.4); EOSINOPHIL % 4.9 % (0.0-4.0); HEMATOCRIT 23.9 % (39.0-51.0); LYMPHOCYTE # 0.5 TH/MM3 (1.0-4.8); MEAN CELL VOLUME 78.7 FL (80.0-100.0); MEAN CORPUSCULAR HEMOGLOBIN 24.1 PG (27.0-34.0); MEAN CORPUSCULAR HGB CONC 30.7 % (32.0-36.0); MONO % 11.1 % (0.0-8.0); NEUT % 75.1 % (16.0-70.0); PLATELET COUNT 252 TH/MM3 (150-450); RED BLOOD COUNT 3.04 MIL/MM3 (4.50-5.90); RED CELL DISTRIBUTION WIDTH 20.8 % (11.6-17.2); WHITE BLOOD COUNT 5.7 TH/MM3 (4.0-11.0)
[2016-11-16 00:19] LABS: HEMO FLAGS AUTO DIFF
[2016-11-16 00:31] LABS: ALT (GPT) 46 U/L (12-78); ANION GAP 10 MEQ/L (5-15); AST (GOT) 51 U/L (15-37); BICARBONATE 29.4 MEQ/L (21.0-32.0); BLOOD UREA NITROGEN 65 MG/DL (7-18); CHLORIDE 101 MEQ/L (98-107); GLOMERULAR FILTRATION RATE 45 ML/MIN (>89); POTASSIUM 5.2 MEQ/L (3.5-5.1); SODIUM (NA) 140 MEQ/L (136-145)
[2016-11-16 00:32] LABS: ALKALINE PHOSPHATASE 225 U/L (45-117); TOTAL BILIRUBIN ADULT 1.7 MG/DL (0.2-1.0)
--- NOTE | 2016-11-16 01:02 | PD ---
HPI Chief Complaint: Seizure Time Seen by Provider: 23:46 Travel History International Travel<30 days: No Contact w/Intl Traveler<30days: No Traveled to known affect area: No History of Present Illness HPI 81-year-old male with multiple medical issues, please see nursing note for further information, presents to the ER from nursing care facility because of suspected seizure. Patient apparently sat up straight in bed and appeared disoriented and had seizure-like activity according to staff. However, the patient states that he was awake the whole time and denies any issues. He denies any chest pains, shortness of breath, or any other problems. Modifying Factors: None Associated Signs & Symptoms: Questionable seizure activity Risk Factors: Elderly residential patient PFSH Past Medical History Arthritis: No Asthma: No Blood Disorders: No Heart Rhythm Problems: No Cancer: No Cardiovascular Problems: Yes High Cholesterol: Yes Chest Pain: No Congestive Heart Failure: Yes COPD: No Cerebrovascular Accident: No Diabetes: Yes Patient Takes Glucophage: Yes (metformin) Endocrine: Yes Gastrointestinal Disorders: No GERD: No Genitourinary: Yes Hiatal Hernia: Yes Hypertension: Yes Immune Disorder: No Implanted Vascular Access Dvce: No Musculoskeletal: No Neurologic: No Psychiatric: No Reproductive: No Respiratory: Yes (chf) Migraines: No Seizures: No Sleep Apnea: No Thyroid Disease: No Ulcer: No Past Surgical History Abdominal Surgery: No Cardiac Surgery: No Ear Surgery: No Endocrine Surgery: No Eye Surgery: No Genitourinary Surgery: No Gynecologic Surgery: No Oral Surgery: No Thoracic Surgery: No Other Surgery: Yes Social History Alcohol Use: No Tobacco Use: No Substance Use: No Allergies-Medications (Allergen,Severity, Reaction): Coded Allergies: No Known Allergies (Verified , 11/15/16) Reported Meds & Prescriptions Reported Meds & Active Scripts Active Lasix (Furosemide) 20 Mg Tab 20 Mg PO QHS Glipizide 5 Mg Tab 5 Mg PO DAILY Take 30 minutes before a meal Acetaminophen 325 Mg Tab 650 Mg PO Q4H PRN Reported Entresto (Sacubitril-Valsartan) 49-51 Mg Tab 1 Tab PO DAILY Lasix (Furosemide) 40 Mg Tab 40 Mg PO DAILY Metoprolol Tartrate 25 Mg Tab 25 Mg PO BID Spironolactone 25 Mg Tab 25 Mg PO DAILY Aspirin 81 Mg Tabdr 81 Mg PO DAILY Review of Systems Except as stated in HPI: all other systems reviewed are Neg Physical Exam Narrative GENERAL: Well-nourished, well-developed elderly -[place] male patient in no acute distress. Awake and oriented 3. SKIN: Warm and dry. HEAD: Normocephalic. EYES: No scleral icterus. No injection or drainage. NECK: Supple, trachea midline. CARDIOVASCULAR: Regular rate and rhythm without murmurs, gallops, or rubs. RESPIRATORY: Breath sounds equal bilaterally. No accessory muscle use. GASTROINTESTINAL: Abdomen soft, non-tender, nondistended. RECTAL EXAM: No masses or tenderness, stool is dark brown, Hemoccult positive. MUSCULOSKELETAL: No cyanosis. Bilateral pitting edema the legs. BACK: Nontender without obvious deformity. No CVA tenderness. NEUROLOGICAL: Awake and alert. Cranial nerves II through XII intact. Motor and sensory grossly within normal limits. Five out of 5 muscle strength in all muscle groups. Normal speech. Data Data Last Documented VS Vital Signs Date Time Temp Pulse Resp B/P Pulse Ox O2 Delivery O2 Flow Rate FiO2 11/16/16 00:02 99 11/15/16 23:31 97.6 95 14 102/68 Orders Complete Blood Count With Diff (11/15/16 23:52) Electrocardiogram (11/15/16 ) Ct Brain W/O Iv Contrast(Rout) (11/15/16 ) Blood Glucose (11/15/16 23:52) Ecg Monitoring (11/15/16 23:52) Iv Access Insert/Monitor (11/15/16 23:52) Oximetry (11/15/16 23:52) Comprehensive Metabolic Panel (11/15/16 23:52) Sodium Chloride 0.9% Flush (Ns Flush) (11/16/16 00:00) Type And Screen (11/16/16 01:35) Red Blood Cells (Rbc) (11/16/16 02:00) Blood Product Administration .UPON TRANSFUSION (11/16/16 02:00) Sodium Chlor 0.9% 250 Ml Inj (Ns 250 Ml (11/16/16 02:00) Admit Order (Ed Use Only) (11/16/16 02:31) Labs Laboratory Tests Test 11/15/16 23:36 White Blood Count 5.7 TH/MM3 Red Blood Count 3.04 MIL/MM3 Hemoglobin 7.3 GM/DL Hematocrit 23.9 % Mean Corpuscular Volume 78.7 FL Mean Corpuscular Hemoglobin 24.1 PG Mean Corpuscular Hemoglobin 30.7 % Concent Red Cell Distribution Width 20.8 % Platelet Count 252 TH/MM3 Mean Platelet Volume 8.1 FL Neutrophils (%) (Auto) 75.1 % Lymphocytes (%) (Auto) 8.0 % Monocytes (%) (Auto) 11.1 % Eosinophils (%) (Auto) 4.9 % Basophils (%) (Auto) 0.9 % Neutrophils # (Auto) 4.3 TH/MM3 Lymphocytes # (Auto) 0.5 TH/MM3 Monocytes # (Auto) 0.6 TH/MM3 Eosinophils # (Auto) 0.3 TH/MM3 Basophils # (Auto) 0.1 TH/MM3 CBC Comment AUTO DIFF Differential Comment AUTO DIFF CONFIRMED Platelet Estimate NORMAL Platelet Morphology Comment NORMAL Target Cells 1+ Acanthocytes OCC Sodium Level 140 MEQ/L Potassium Level 5.2 MEQ/L Chloride Level 101 MEQ/L Carbon Dioxide Level 29.4 MEQ/L Anion Gap 10 MEQ/L Blood Urea Nitrogen 65 MG/DL Creatinine 1.78 MG/DL Estimat Glomerular Filtration 45 ML/MIN Rate Random Glucose 83 MG/DL Calcium Level 8.7 MG/DL Total Bilirubin 1.7 MG/DL Aspartate Amino Transf 51 U/L (AST/SGOT) Alanine Aminotransferase 46 U/L (ALT/SGPT) Alkaline Phosphatase 225 U/L Total Protein 6.8 GM/DL Albumin 2.9 GM/DL [facility] Medical Decision Making Medical Screen Exam Complete: Yes Emergency Medical Condition: Yes Medical Record Reviewed: Yes Interpretation(s) Laboratory Tests Test 11/15/16 23:36 Red Blood Count 3.04 MIL/MM3 (4.50-5.90) Hemoglobin 7.3 GM/DL (13.0-17.0) Hematocrit 23.9 % (39.0-51.0) Mean Corpuscular Volume 78.7 FL (80.0-100.0) Mean Corpuscular Hemoglobin 24.1 PG (27.0-34.0) Mean Corpuscular Hemoglobin 30.7 % Concent (32.0-36.0) Red Cell Distribution Width 20.8 % (11.6-17.2) Neutrophils (%) (Auto) 75.1 % (16.0-70.0) Lymphocytes (%) (Auto) 8.0 % (9.0-44.0) Monocytes (%) (Auto) 11.1 % (0.0-8.0) Eosinophils (%) (Auto) 4.9 % (0.0-4.0) Lymphocytes # (Auto) 0.5 TH/MM3 (1.0-4.8) Target Cells 1+ (NORMAL) Potassium Level 5.2 MEQ/L (3.5-5.1) Blood Urea Nitrogen 65 MG/DL (7-18) Creatinine 1.78 MG/DL (0.60-1.30) Estimat Glomerular Filtration 45 ML/MIN (>89) Rate Total Bilirubin 1.7 MG/DL (0.2-1.0) Aspartate Amino Transf 51 U/L (15-37) (AST/SGOT) Alkaline Phosphatase 225 U/L (45-117) Albumin 2.9 GM/DL (3.4-5.0) Last [address] 11/15/16 0000 Signed Impressions: Service Date/Time: Wednesday, November 16, 2016 01:00 - CONCLUSION: 1. Mild symmetric cortical atrophy as well as some periventricular small vessel ischemic demyelination. 2. Minimal chronic sinusitis in the right maxillary antra. 3. Otherwise negative with no acute intracranial process. Juan Ferrara MD Differential Diagnosis Questionable seizure activityrule out metabolic issues versus dysrhythmias versus dehydration versus acute intracranial processes Narrative Course Lab work shows significant anemia of uncertain etiology. Blood transfusion was ordered for the patient. A rectal exam reveals Hemoccult positive stools. At this point, Protonix was initiated. Case had been discussed previously with Dr. Correa for admission for significant anemia. Patient has elevated BUN/ creatinine creatinine, appears to be chronic. CT the brain did not reveal any signs of acute intracranial processes. He does not appear to be on any blood thinners. I am uncertain of the questionable seizure identified by staff at facility. At this point, patient will need to be admitted as an observation for this as well. [facility] Point of Care Internal Pos. & Neg. Controls: Passed Fecal Specimen Occult Blood: Positive Diagnosis Primary Impression: Severe anemia Additional Impression: GI bleed Admitting Information Admitting Physician Requests: Admit Victorino Samaniego MD Nov 16, 2016 01:02
[2016-11-16 01:03] LABS: ACANTHOCYTES OCC (NORMAL); PLATELET ESTIMATE SMEAR NORMAL (NORMAL); PLATELET MORPHOLOGY NORMAL (NORMAL); SCAN/DIFF AUTO DIFF CONFIRMED; TARGET CELLS 1+ (NORMAL)
--- NOTE | 2016-11-16 01:13 | RADRPT ---
EXAM DATE/TIME: 11/16/2016 01:00 [facility] COMPARISON: No previous studies available for comparison. INDICATIONS : Syncope RADIATION DOSE: 39.33 CTDIvol (mGy) MEDICAL HISTORY : Cardiovascular disease. Hypertension. Diabetes mellitus type 2. SURGICAL HISTORY : Pacemaker. ENCOUNTER: Initial ACUITY: 1 day PAIN SCALE: 2/10 LOCATION: cranial TECHNIQUE: Multiple contiguous axial images were obtained of the head. Using automated exposure control and adj ustment of the mA and/or kV according to patient size, radiation dose was kept as low as reasonably a chievable to obtain optimal diagnostic quality images. FINDINGS: CEREBRUM: The ventricles are normal for age. Mild, Symmetric cortical atrophy. No evidence of midline shift, m ass lesion, hemorrhage or acute infarction. Periventricular small vessel ischemic demyelination most prominent around the frontal horns of the lateral ventricles. No extra-axial fluid collections are s een. POSTERIOR FOSSA: The cerebellum and brainstem are intact. The 4th ventricle is midline. The cerebellopontine angle i s unremarkable. EXTRACRANIAL: The visualized portion of the orbits is intact. Minimal mucoperiosteal thickening in the right maxill lupe antra. SKULL: The calvaria is intact. No evidence of skull fracture. CONCLUSION: 1. Mild symmetric cortical atrophy as well as some periventricular small vessel ischemic demyelinatio n. 2. Minimal chronic sinusitis in the right maxillary antra. 3. Otherwise negative with no acute intracranial process. Juan Ferrara MD on November 16, 2016 at 1:09 Board Certified Radiologist. This report was verified electronically.
[2016-11-16] MEDS ORDERED: SODIUM CHLOR 0.9% 250 ML INJ 250 ML IV ONE (02:00)
[2016-11-16] MEDS ORDERED: NALOXONE HCL 0.4 MG/ML AMP IV PRN ×2 (02:45→05:00)
[2016-11-16] MEDS ORDERED: SODIUM CHLORIDE 0.9% FLUSH 5 ML FLUSH FLUSH PRN ×2 (02:45→05:00)
[2016-11-16] MEDS ORDERED: PANTOPRAZOLE SODIUM 40 MG VIAL IV PUSH ONE (03:00)
[2016-11-16] MEDS ORDERED: ACETAMINOPHEN 325 MG TAB PO PRN (05:00)
[2016-11-16] MEDS: SODIUM CHLORIDE 0.9% FLUSH 5 ML FLUSH FLUSH SCH ×2 (08:54→21:32)
[2016-11-16] MEDS ORDERED: SODIUM CHLORIDE 0.9% FLUSH 5 ML FLUSH FLUSH SCH (09:00)
[2016-11-16] MEDS: METOPROLOL TARTRATE 25 MG TAB PO SCH ×2 (10:08→21:00)
[2016-11-16] MEDS: ASPIRIN EC 81 MG TABEC PO SCH (10:08)
[2016-11-16] MEDS: FUROSEMIDE 40 MG TAB PO SCH (10:08)
[2016-11-16] MEDS: SPIRONOLACTONE 25 MG TAB PO SCH (10:08)
[2016-11-16 10:34] LABS: HEMATOCRIT 25.3 % (39.0-51.0)
[2016-11-16 10:35] LABS: REVIEW FLAG FINAL
--- NOTE | 2016-11-16 10:54 | PD.CONS ---
HPI History of Present Illness This is a 81 year old AA male with past medical history of HTN, DM, CHF EF of 30 %, AICD is here for what thought to be seizures activity noted by nursing staff. GI have been consulted for anemia. HH 7.3/23.9, heme (+) stools. his base line around 9-10. Patient reports black tarry stools for several days, not able to further characterize, he denies blood thinner, or ASA. He denies alcohol intake. He denies any other associated GI issues including GERD, nausea , vomiting, abdomen pain,hematemesis, or hematochezia PFSH Past Medical History Hypertension Diabetes Hyperlipidemia CHFstatus post AICDEF of 30%. Ventricular arrhythmiastatus post AICD. Past Surgical History AICD/PPM placement Right shoulder surgery Coded Allergies: No Known Allergies (Verified , 11/15/16) Medications Current Medications Medications (Trade) Dose Ordered Sig/Deborah Route Start Time Stop Time Status Last Admin (Ecotrin Ec) 81 mg DAILY PO 11/16/16 09:00 11/16/16 10:08 (Lasix) 40 mg DAILY PO 11/16/16 09:00 11/16/16 10:08 (Lopressor) 25 mg BID PO 11/16/16 09:00 11/16/16 10:08 (Aldactone) 25 mg DAILY PO 11/16/16 09:00 11/16/16 10:08 (NS Flush) 2 ml UNSCH PRN FLUSH 11/16/16 05:00 (NS Flush) 2 ml BID FLUSH 11/16/16 09:00 (Tylenol) 650 mg Q4H PRN PO 11/16/16 05:00 (Narcan Inj) 0.4 mg UNSCH PRN IV 11/16/16 05:00 Family History Non contributory Social History No alcohol No smoking No illicit drug use Review of Systems Constitutional: COMPLAINS OF: Fatigue, DENIES: Chills Endocrine: DENIES: Polyuria Eyes: DENIES: Double Vision Ears, nose, mouth, throat: DENIES: Hoarseness Respiratory: DENIES: Shortness of breath Cardiovascular: DENIES: Lower Extremity Edema Gastrointestinal: COMPLAINS OF: Black stools, DENIES: Abdominal pain, Bloody stools, Constipation, Diarrhea, Nausea, Vomiting, Difficulty Swallowing, Anorexia, Odynophagia, Swelling of Abdomen, Heartburn, Hematemesis Genitourinary: DENIES: Hematuria Musculoskeletal: DENIES: Back pain Integumentary: DENIES: Jaundice Hematologic/lymphatic: DENIES: Bruising Immunologic/allergic: DENIES: Eczema Neurologic: DENIES: Abnormal gait Psychiatric: DENIES: Anxiety GI Exam Vitals I&O Vital Signs Date Time Temp Pulse Resp B/P Pulse Ox O2 Delivery O2 Flow Rate FiO2 11/16/16 10:05 98.2 93 16 119/80 100 Nasal Cannula 3 11/16/16 09:36 97.3 89 16 105/72 100 Nasal Cannula 2 11/16/16 08:52 97.4 96 16 115/77 97 Nasal Cannula 3 11/16/16 08:16 96 16 100/59 97 Nasal Cannula 3 11/16/16 07:54 Nasal Cannula 3.00 11/16/16 07:00 97.2 93 16 114/79 100 Nasal Cannula 2 11/16/16 06:10 86 18 118/78 100 Nasal Cannula 2 11/16/16 05:56 97.9 96 18 115/77 99 Nasal Cannula 2 11/16/16 02:54 96 18 110/68 99 Nasal Cannula 2 11/16/16 00:02 99 11/15/16 23:31 97.6 95 14 102/68 I/O 11/15/16 11/15/16 11/15/16 11/16/16 11/16/16 11/16/16 07:00 15:00 23:00 07:00 15:00 23:00 Intake Total 250 ml Balance 250 ml Intake Packed Cells 250 ml Imaging Last Impressions Head CT 11/15/16 0000 Signed Impressions: Service Date/Time: Wednesday, November 16, 2016 01:00 - CONCLUSION: 1. Mild symmetric cortical atrophy as well as some periventricular small vessel ischemic demyelination. 2. Minimal chronic sinusitis in the right maxillary antra. 3. Otherwise negative with no acute intracranial process. Juan Ferrara MD Laboratory Test 11/15/16 11/16/16 11/16/16 23:36 02:35 05:50 White Blood Count 5.7 TH/MM3 Red Blood Count 3.04 MIL/MM3 Hemoglobin 7.3 GM/DL Hematocrit 23.9 % Mean Corpuscular Volume 78.7 FL Mean Corpuscular Hemoglobin 24.1 PG Mean Corpuscular Hemoglobin 30.7 % Concent Red Cell Distribution Width 20.8 % Platelet Count 252 TH/MM3 Mean Platelet Volume 8.1 FL Neutrophils (%) (Auto) 75.1 % Lymphocytes (%) (Auto) 8.0 % Monocytes (%) (Auto) 11.1 % Eosinophils (%) (Auto) 4.9 % Basophils (%) (Auto) 0.9 % Neutrophils # (Auto) 4.3 TH/MM3 Lymphocytes # (Auto) 0.5 TH/MM3 Monocytes # (Auto) 0.6 TH/MM3 Eosinophils # (Auto) 0.3 TH/MM3 Basophils # (Auto) 0.1 TH/MM3 CBC Comment AUTO DIFF Differential Comment AUTO DIFF CONFIRMED Platelet Estimate NORMAL Platelet Morphology Comment NORMAL Target Cells 1+ Acanthocytes OCC Sodium Level 140 MEQ/L Potassium Level 5.2 MEQ/L Chloride Level 101 MEQ/L Carbon Dioxide Level 29.4 MEQ/L Anion Gap 10 MEQ/L Blood Urea Nitrogen 65 MG/DL Creatinine 1.78 MG/DL Estimat Glomerular Filtration 45 ML/MIN Rate Random Glucose 83 MG/DL Calcium Level 8.7 MG/DL Total Bilirubin 1.7 MG/DL Aspartate Amino Transf 51 U/L (AST/SGOT) Alanine Aminotransferase 46 U/L (ALT/SGPT) Alkaline Phosphatase 225 U/L Total Protein 6.8 GM/DL Albumin 2.9 GM/DL Blood Type A POSITIVE Antibody Screen NEGATIVE Crossmatch Leukocyte-Reduced Red Blood Cells Blood Bank Comment Total Creatine Kinase 38 U/L Troponin I 0.11 NG/ML Physical Examination HEENT: normocephalic; atraumatic; no jaundice. NECK: Neck is supple, no JVD, no lymphadenopathy. CHEST: Chest is clear to auscultation and percussion. CARDIAC: Regular rate and rhythm with no murmur gallop or rubs. ABDOMEN: Soft, nondistended, nontender; no hepatosplenomegaly; bowel sounds are present in all four quadrants. EXTREMITIES: No clubbing, cyanosis, or edema. SKIN: Normal; no rash; no jaundice. CREATIVE RESOURCE MANAGER: No focal deficits; alert and oriented times three. Assessment and Plan Plan - Anemia/melena/heme (+) stools- HH 7.3/23.9, heme (+) stools. his base line around 9-10. Patient reports black tarry stools for several days, not able to further characterize, he denies blood thinner, or ASA. He denies alcohol intake. He denies any other associated GI issues including GERD, nausea, vomiting, abdomen pain,hematemesis, or hematochezia - Acute on chronic anemia- acute blood loss and anemia of chronic dz, 2 units ordered and pending - ?Seizures activity- CT the brain did not reveal any signs of acute intracranial processes - Chronic kidney disease - HTN, DM, CHF EF of 30%, AICD per attending Plan: - NPO - EGD today - Obtain consents - Cont. ppi - Monitor hh - Transfuse as needed - Patient seen and examined by Dr. Garcia and myself and this note is written on his behalf. Radha Moreno Nov 16, 2016 10:54
[2016-11-16] MEDS ORDERED: PROPOFOL 200 MG/20 ML AMP IV ONE (12:06)
--- NOTE | 2016-11-16 12:22 | GIPROC ---
"[facility] [address] [facility]. [facility], [address] EGD PROCEDURE REPORT EXAM DATE: 11/16/2016 PATIENT NAME: Gerald Collins MR #: [id number] BIRTHDATE: 1935 ATTENDING: Cesar Garcia MD ORDER #: [id number] EQUIPMENT MAINT TECH: Ely Shannon and Jeff Corado STATUS: inpatient INDICATIONS: The patient is a 81 yr old male here for an EGD due to anemia and black stool PROCEDURE PERFORMED: EGD w/ biopsy MEDICATIONS: None and Per Anesthesia. TOPICAL ANESTHETIC: none CONSENT: The patient understands the risks and benefits of the procedure and understands that these risks include, but are not limited to: sedation, allergic reaction, infection, perforation and/or bleeding. Alternative means of evaluation and treatment include, among others: physical exam, x-rays, and/or surgical intervention. The patient elects to proceed with this endoscopic procedure. medical equipment was checked for proper function. Hand hygiene and appropriate measures for infection prevention was taken. After the risks, benefits and alternatives of the procedure were thoroughly explained, Informed consent was verified, confirmed and timeout was successfully executed by the treatment team. The patient was anesthetized with topical anesthesia and the Pentax [id number] endoscope was introduced through the mouth and advanced to the second portion of the duodenum. Retroflexed views revealed no abnormalities The gastroscope was then slowly withdrawn and removed. Sever gastritis with few ulcerations in the antrum Bx done, no sign of active bleed. The endoscopy was otherwise normal ADVERSE EVENTS: hyptoension will be treated with fluid IMPRESSIONS: 1. Sever gastritis with few ulcerations in the antrum Bx done, no sign of active bleed 2. Normal endoscopy otherwise 3. Retroflexed views revealed no abnormalities RECOMMENDATIONS: 1. anti-reflux regimen 2. await biopsy results. Biopsy results will not be ready for 7-10 days. If you don't hear from us in two weeks, call our office for biopsy results. 3. Protonix 40mg Q AM 4. consider capsule endoscopy as outpatient I will discuss with patient colonoscopy when stable REPEAT EXAM: Return as needed for EGD. Cesar Garcia MD eSigned: Cesar Garcia MD 11/16/2016 12:22 PM cc: CPT CODES: 48409 Upper gastrointestinal endoscopy including esophagus, stomach, and either the duodenum and/or jejunum as appropriate; with biopsy, single or multiple ICD CODES: 285.9 anemia,unspecified The ICD and CPT codes recommended by this software are interpretations from the data that the clinical staff has captured with the software. The verification of the translation of this report to the ICD and CPT codes and modifiers is the sole responsibility of the health care institution and practicing physician where this report was generated. [employer] will not be held responsible for the validity of the ICD and CPT codes included on this report. AMA assumes no liability for data contained or not contained herein. CPT is a registered trademark of the [employer]. PATIENT NAME: Gerald Collins MR#: [id number]"
[2016-11-16] MEDS ORDERED: PROPOFOL 1000 MG/100 ML INJ 100 ML ONE (13:44)
[2016-11-16] MEDS ORDERED: PROPOFOL 1000 MG/100 ML INJ 100 ML IV SCH (14:00)
[2016-11-16] MEDS ORDERED: fentaNYL DRIP 250 ML IV SCH (14:00)
[2016-11-16] MEDS ORDERED: MIDAZOLAM 100 MG/ML INJ 100 ML IV SCH (14:00)
--- NOTE | 2016-11-16 14:06 | RADRPT ---
EXAM DATE/TIME: 11/16/2016 13:18 [place] COMPARISON: CHEST SINGLE AP, September 27, 2016, 18:15. INDICATIONS : Post intubation. MEDICAL HISTORY : Cardiovascular disease. Hypertension Diabetes mellitus type II. SURGICAL HISTORY : Pacemaker. ENCOUNTER: Initial ACUITY: 1 day PAIN SCORE: Non-responsive. LOCATION: Bilateral chest FINDINGS: Portable AP view of the chest demonstrates stable mildly enlarged cardiac silhouette. Left chest wall cardiac pacing device/AICD is present. Biventricular leads are present. Endotracheal tube is present with tip at the clavicular head level measuring 3.4 cm from the jason. Lungs are underinflated. The re is a stable coarse calcification in the inferior right hemithorax with stable blunting of the righ t costophrenic sulcus. No pneumothorax is visualized. There is severe degenerative change at the adenike ohumeral joints bilaterally. Stomach is distended with air. CONCLUSION: 1. Endotracheal tube in appropriate position with tip measuring approximately 3.4 cm from the jason. 2. Chronic pleural calcification and pleural thickening versus pleural effusion on the right. Ivan Choi MD on November 16, 2016 at 14:03 Board Certified Radiologist. This report was verified electronically.
[2016-11-16 14:47] LABS: HEMATOCRIT 27.3 % (39.0-51.0)
[2016-11-16 14:48] LABS: REVIEW FLAG FINAL
--- NOTE | 2016-11-16 15:43 | PD.CONS ---
HPI Service Critical Care Medicine Consult Requested By Primary Care Physician Cyrus Perry M.D. History of Present Illness 81-year-old male detention resident with multiple medical issues, presents because of suspected seizure. Patient apparently sat up straight in bed and appeared disoriented and had seizure-like activity according to staff. However , per chart documentation the patient stated that he was awake the whole time and denied any issues. He was found to be anemic with hemoglobin at 7 and Hemoccult-positive. Therefore he was taken to GI lab for endoscopy with the finding of severe gastritis and some duodenal ulcerations however no major source of bleeding. Postanesthesia patient was lethargic remained intubated and was transferred to ICU. Review of Systems ROS Unable to obtain patient is sedated and intubated Past Family Social History Allergies: Coded Allergies: No Known Allergies (Verified , 11/15/16) Past Medical History Hypertension Diabetes Hyperlipidemia CHFstatus post AICDEF of 30%. 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 Past Surgical History AICD/PPM placement Right shoulder surgery Reported Medications Reported Meds & Active Scripts Active Lasix (Furosemide) 20 Mg Tab 20 Mg PO QHS Glipizide 5 Mg Tab 5 Mg PO DAILY Take 30 minutes before a meal Acetaminophen 325 Mg Tab 650 Mg PO Q4H PRN Reported Entresto (Sacubitril-Valsartan) 49-51 Mg Tab 1 Tab PO DAILY Lasix (Furosemide) 40 Mg Tab 40 Mg PO DAILY Metoprolol Tartrate 25 Mg Tab 25 Mg PO BID Spironolactone 25 Mg Tab 25 Mg PO DAILY Aspirin 81 Mg Tabdr 81 Mg PO DAILY Active Ordered Medications Current Medications Medications (Trade) Dose Ordered Sig/Deborah Route PRN Reason Start Time Stop Time Status Last Admin Dose Admin Aspirin (Ecotrin Ec) 81 mg DAILY PO 11/16/16 09:00 11/16/16 10:08 Furosemide (Lasix) 40 mg DAILY PO 11/16/16 09:00 11/16/16 10:08 Metoprolol Tartrate (Lopressor) 25 mg BID PO 11/16/16 09:00 11/16/16 10:08 Spironolactone (Aldactone) 25 mg DAILY PO 11/16/16 09:00 11/16/16 10:08 IV Flush (NS Flush) 2 ml UNSCH PRN FLUSH FLUSH AFTER USING IV ACCESS 11/16/16 05:00 IV Flush (NS Flush) 2 ml BID FLUSH 11/16/16 09:00 Acetaminophen (Tylenol) 650 mg Q4H PRN PO TEMP > 100.4 11/16/16 05:00 Naloxone HCl 0.4 mg 0.4 mg UNSCH PRN IV SEE LABEL COMMENTS 11/16/16 05:00 Midazolam HCl 100 ml @ 0 mls/hr TITRATE IV 11/16/16 14:00 Fentanyl Citrate 250 ml @ 0 mls/hr TITRATE IV 11/16/16 14:00 Propofol (Diprivan 1000 Mg/100ml Inj) 100 ml @ 0 mls/hr TITRATE IV 11/16/16 14:00 Family History Noncontributory Social History Negative 3 Physical Exam Vital Signs Vital Signs Date Time Temp Pulse Resp B/P Pulse Ox O2 Delivery O2 Flow Rate FiO2 11/16/16 11:03 97.7 86 16 107/78 100 Room Air 11/16/16 10:25 96 16 133/85 99 11/16/16 10:20 86 16 100 Room Air 11/16/16 10:05 98.2 93 16 119/80 100 Nasal Cannula 3 11/16/16 09:36 97.3 89 16 105/72 100 Nasal Cannula 2 11/16/16 08:52 97.4 96 16 115/77 97 Nasal Cannula 3 11/16/16 08:16 96 16 100/59 97 Nasal Cannula 3 11/16/16 07:54 Nasal Cannula 3.00 11/16/16 07:00 97.2 93 16 114/79 100 Nasal Cannula 2 11/16/16 06:10 86 18 118/78 100 Nasal Cannula 2 11/16/16 05:56 97.9 96 18 115/77 99 Nasal Cannula 2 11/16/16 02:54 96 18 110/68 99 Nasal Cannula 2 11/16/16 00:02 99 11/15/16 23:31 97.6 95 14 102/68 Physical Exam GENERAL: Elderly man sedated and intubated SKIN: Warm and dry. HEAD: Normocephalic. EYES: No scleral icterus. No injection or drainage. NECK: Supple, trachea midline. No JVD or lymphadenopathy. CARDIOVASCULAR: Regular rate and rhythm without murmurs, gallops, or rubs. RESPIRATORY: Breath sounds equal bilaterally. No accessory muscle use. GASTROINTESTINAL: Abdomen soft, non-tender, nondistended. MUSCULOSKELETAL: No cyanosis, or edema. BACK: Nontender without obvious deformity. No CVA tenderness. Laboratory Laboratory Tests Test 11/15/16 11/16/16 11/16/16 11/16/16 23:36 02:35 05:50 10:00 White Blood Count 5.7 Red Blood Count 3.04 Hemoglobin 7.3 7.9 Hematocrit 23.9 25.3 Mean Corpuscular Volume 78.7 Mean Corpuscular Hemoglobin 24.1 Mean Corpuscular Hemoglobin 30.7 Concent Red Cell Distribution Width 20.8 Platelet Count 252 Mean Platelet Volume 8.1 Neutrophils (%) (Auto) 75.1 Lymphocytes (%) (Auto) 8.0 Monocytes (%) (Auto) 11.1 Eosinophils (%) (Auto) 4.9 Basophils (%) (Auto) 0.9 Neutrophils # (Auto) 4.3 Lymphocytes # (Auto) 0.5 Monocytes # (Auto) 0.6 Eosinophils # (Auto) 0.3 Basophils # (Auto) 0.1 CBC Comment AUTO DIFF Differential Comment AUTO DIFF CONFIRMED Platelet Estimate NORMAL Platelet Morphology Comment NORMAL Target Cells 1+ Acanthocytes OCC Sodium Level 140 Potassium Level 5.2 Chloride Level 101 Carbon Dioxide Level 29.4 Anion Gap 10 Blood Urea Nitrogen 65 Creatinine 1.78 Estimat Glomerular Filtration 45 Rate Random Glucose 83 Calcium Level 8.7 Total Bilirubin 1.7 Aspartate Amino Transf 51 (AST/SGOT) Alanine Aminotransferase 46 (ALT/SGPT) Alkaline Phosphatase 225 Total Protein 6.8 Albumin 2.9 Blood Type A POSITIVE Antibody Screen NEGATIVE Crossmatch Leukocyte-Reduced Red Blood Cells Blood Bank Comment Total Creatine Kinase 38 Troponin I 0.11 Test 11/16/16 14:12 Hemoglobin 8.6 Hematocrit 27.3 Result Diagram: 11/16/16 1412 11/15/16 2336 Imaging Last 24 hours Impressions Chest X-Ray 11/16/16 0000 Signed Impressions: Service Date/Time: Wednesday, November 16, 2016 13:18 - CONCLUSION: 1. Endotracheal tube in appropriate position with tip measuring approximately 3.4 cm from the jason. 2. Chronic pleural calcification and pleural thickening versus pleural effusion on the right. Ivan Choi MD Course GI endoscopy: 1. Sever gastritis with few ulcerations in the antrum Bx done,no sign of active bleed 2. Normal endoscopy otherwise 3. Retroflexed views revealed no abnormalities Assessment and Plan Problem List: (1) Acute on chronic renal insufficiency ICD Code: N28.9 Status: Resolved (2) GI bleed ICD Code: K92.2 Status: Acute Assessment and Plan Respiratory failure - Intubated for endoscopy procedure - Wean off sedation and extubate Anemia - Of chronic disease - Chronic renal insufficiency - Negative endoscopy - Monitor H&H - Transfuse if hemoglobin less than 7 Positive Hemoccult - Endoscopy results: 1. Sever gastritis with few ulcerations in the antrum Bx done,no sign of active bleed 2. Normal endoscopy otherwise 3. Retroflexed views revealed no abnormalities - Protonix - For the per GI recommendations CHF - No exacerbations - Continue REENA inhibitor - AICD in place Diabetes mellitus - Insulin sliding scale DVT GI prophylaxis - Teds SCDs Protonix Critical Care: The total critical care time was 35 minutes. Time to perform other separately billable procedures was not included in the critical care time. Eamon Naqvi MD Nov 16, 2016 15:43
--- NOTE | 2016-11-16 16:34 | HHI.HP ---
History of Present Illness Service Attending - Chris Eugene DO Primary Care Physician Cyrus Perry M.D. Admission Diagnosis significant anemia/questionable new onset seizure Diagnoses: (1) GI bleed Diagnosis: Principal (2) Hypoxemia Diagnosis: Secondary (3) Severe anemia Diagnosis: Secondary (4) Hypertension Diagnosis: Secondary History of Present Illness This is an 81 y/o male SNF resident followed by Dr. Eugene who was sent to [facility] ER d/t an episode concerning for a seizure witnessed by SNF personnel, but remembered by the patient. He c/o several days of black, tarry stools. He was found to be significantly anemic with a Hgb of 7.3 upon admission and underwent EGD by Dr. Garcia showing acute gastritis, but no visual bleed. Per my d/w Dr. Garcia, he felt that the bleeding source was likely lower GI, but wanted to stabilize the patient before scheduling any further testing. Pt. is seen post EGD, with some hypotension and hypoxia. He required intubation in the GI lab and was transferred to ICU for further evaluation and management. Sepsis Criteria SIRS Criteria (2 or more): Heart rate over 90 Review of Systems ROS Limitations: Clinical Condition, Intubated Past Family Social History Allergies: Coded Allergies: No Known Allergies (Verified , 11/15/16) Past Medical History Past Medical History Hypertension Diabetes Hyperlipidemia CHFstatus post AICDEF of 30%. 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 Past Surgical History Past Surgical History AICD/PPM placement Right shoulder surgery Reported Medications Reported Meds & Active Scripts Active Lasix (Furosemide) 20 Mg Tab 20 Mg PO QHS Glipizide 5 Mg Tab 5 Mg PO DAILY Take 30 minutes before a meal Acetaminophen 325 Mg Tab 650 Mg PO Q4H PRN Reported Entresto (Sacubitril-Valsartan) 49-51 Mg Tab 1 Tab PO DAILY Lasix (Furosemide) 40 Mg Tab 40 Mg PO DAILY Metoprolol Tartrate 25 Mg Tab 25 Mg PO BID Spironolactone 25 Mg Tab 25 Mg PO DAILY Aspirin 81 Mg Tabdr 81 Mg PO DAILY Active Ordered Medications Current Medications Medications (Trade) Dose Ordered Sig/Deborah Route Start Time Stop Time Status Last Admin (Ecotrin Ec) 81 mg DAILY PO 11/16/16 09:00 11/16/16 10:08 (Lasix) 40 mg DAILY PO 11/16/16 09:00 11/16/16 10:08 (Lopressor) 25 mg BID PO 11/16/16 09:00 11/16/16 10:08 (Aldactone) 25 mg DAILY PO 11/16/16 09:00 11/16/16 10:08 (NS Flush) 2 ml UNSCH PRN FLUSH 11/16/16 05:00 (NS Flush) 2 ml BID FLUSH 11/16/16 09:00 (Tylenol) 650 mg Q4H PRN PO 11/16/16 05:00 Naloxone HCl 0.4 mg 0.4 mg UNSCH PRN IV 11/16/16 05:00 Midazolam HCl 100 ml @ 0 mls/hr TITRATE IV 11/16/16 14:00 Fentanyl Citrate 250 ml @ 0 mls/hr TITRATE IV 11/16/16 14:00 (Diprivan 1000 Mg/100ml Inj) 100 ml @ 0 mls/hr TITRATE IV 11/16/16 14:00 Family History Unobtainable. Social History Negative for tobacco, ETOH, illicits. Physical Exam Vital Signs Vital Signs Date Time Temp Pulse Resp B/P Pulse Ox O2 Delivery O2 Flow Rate FiO2 11/16/16 15:56 100 Nasal Cannula 4 36 11/16/16 15:40 100 50 11/16/16 11:03 97.7 86 16 107/78 100 Room Air 11/16/16 10:25 96 16 133/85 99 11/16/16 10:20 86 16 100 Room Air 11/16/16 10:05 98.2 93 16 119/80 100 Nasal Cannula 3 11/16/16 09:36 97.3 89 16 105/72 100 Nasal Cannula 2 11/16/16 08:52 97.4 96 16 115/77 97 Nasal Cannula 3 11/16/16 08:16 96 16 100/59 97 Nasal Cannula 3 11/16/16 07:54 Nasal Cannula 3.00 11/16/16 07:00 97.2 93 16 114/79 100 Nasal Cannula 2 11/16/16 06:10 86 18 118/78 100 Nasal Cannula 2 11/16/16 05:56 97.9 96 18 115/77 99 Nasal Cannula 2 11/16/16 02:54 96 18 110/68 99 Nasal Cannula 2 11/16/16 00:02 99 11/15/16 23:31 97.6 95 14 102/68 Physical Exam GENERAL: Thin, well-developed patient. SKIN: Warm and dry. HEAD: Normocephalic. EYES: No scleral icterus. No injection or drainage. NECK: Supple, trachea midline. No JVD or lymphadenopathy. CARDIOVASCULAR: Tachycardic, regular rhythm, 2/6 SANTOS, no rubs, gallops. RESPIRATORY: Breath sounds diminished bilaterally. No accessory muscle use. GASTROINTESTINAL: Abdomen soft,nondistended. EXTREMITIES: No cyanosis, or edema. NEUROLOGICAL: Sedated Laboratory Laboratory Tests Test 11/15/16 11/16/16 11/16/16 11/16/16 23:36 02:35 05:50 10:00 White Blood Count 5.7 Red Blood Count 3.04 Hemoglobin 7.3 7.9 Hematocrit 23.9 25.3 Mean Corpuscular Volume 78.7 Mean Corpuscular Hemoglobin 24.1 Mean Corpuscular Hemoglobin 30.7 Concent Red Cell Distribution Width 20.8 Platelet Count 252 Mean Platelet Volume 8.1 Neutrophils (%) (Auto) 75.1 Lymphocytes (%) (Auto) 8.0 Monocytes (%) (Auto) 11.1 Eosinophils (%) (Auto) 4.9 Basophils (%) (Auto) 0.9 Neutrophils # (Auto) 4.3 Lymphocytes # (Auto) 0.5 Monocytes # (Auto) 0.6 Eosinophils # (Auto) 0.3 Basophils # (Auto) 0.1 CBC Comment AUTO DIFF Differential Comment AUTO DIFF CONFIRMED Platelet Estimate NORMAL Platelet Morphology Comment NORMAL Target Cells 1+ Acanthocytes OCC Sodium Level 140 Potassium Level 5.2 Chloride Level 101 Carbon Dioxide Level 29.4 Anion Gap 10 Blood Urea Nitrogen 65 Creatinine 1.78 Estimat Glomerular Filtration 45 Rate Random Glucose 83 Calcium Level 8.7 Total Bilirubin 1.7 Aspartate Amino Transf 51 (AST/SGOT) Alanine Aminotransferase 46 (ALT/SGPT) Alkaline Phosphatase 225 Total Protein 6.8 Albumin 2.9 Blood Type A POSITIVE Antibody Screen NEGATIVE Crossmatch Leukocyte-Reduced Red Blood Cells Blood Bank Comment Total Creatine Kinase 38 Troponin I 0.11 Test 11/16/16 11/16/16 11/16/16 13:09 14:10 14:12 Nasal Screen MRSA (PCR) NEGATIVE Total Creatine Kinase 45 Troponin I 0.11 Hemoglobin 8.6 Hematocrit 27.3 Result Diagram: 11/16/16 1412 11/15/16 2336 Imaging Last Impressions Chest X-Ray 11/16/16 0000 Signed Impressions: Service Date/Time: Wednesday, November 16, 2016 13:18 - CONCLUSION: 1. Endotracheal tube in appropriate position with tip measuring approximately 3.4 cm from the jason. 2. Chronic pleural calcification and pleural thickening versus pleural effusion on the right. Ivan Choi MD Head CT 11/15/16 0000 Signed Impressions: Service Date/Time: Wednesday, November 16, 2016 01:00 - CONCLUSION: 1. Mild symmetric cortical atrophy as well as some periventricular small vessel ischemic demyelination. 2. Minimal chronic sinusitis in the right maxillary antra. 3. Otherwise negative with no acute intracranial process. Juan Ferrara MD Assessment and Plan Problem List: (1) Hypoxemia Status: Acute Plan: S/P EGD, transferred to ICU for weaning and stabilization. (2) Hypertension Status: Chronic Plan: Hypotensive after EGD. Will hold home meds until stable then resume as appropriate. (3) Severe anemia Status: Acute Plan: Transfuse if needed, monitor labs, hgb stabilizing without transfusion at this time. GI following. (4) GI bleed Status: Acute Plan: EGD showed gastritis, no bleeding source. Dr. Garcia will do colonoscopy when stable. Assessment and Plan D/W Dr. Garcia, Dr. Eugene, RN. Problem Qualifiers (1) GI bleed: (2) Hypertension: Qualified Code: I10 - Essential hypertension Naima Dia Nov 16, 2016 16:33
--- NOTE | 2016-11-16 18:24 | EKG ---
Date Performed: 11/16/2016 Time Performed: 10:13:39 PTAGE: 81 years EKG: ELECTRONIC VENTRICULAR PACEMAKER ABNORMAL RHYTHM ECG PREVIOUS TRACING : 09/27/2016 19.23 DOCTOR: Carlos Murry Interpretating Date/Time 11/16/2016 18:23:05
[2016-11-16 21:02] LABS: HEMATOCRIT 28.4 % (39.0-51.0)
[2016-11-16 21:04] LABS: REVIEW FLAG FINAL
[2016-11-17] VITALS (12 sets, daily range): BP systolic 109–122; BP diastolic 66–78; PULSE 87–105; RESP 18–25; TEMP 97.7–98.7; O2SAT 92–100
[2016-11-17 06:29] LABS: AUTOMATED NEUTROPHIL # 5.4 TH/MM3 (1.8-7.7); BASOPHIL # 0.1 TH/MM3 (0-0.2); BASOPHIL % 0.9 % (0.0-2.0); EOSINOPHIL # 0.3 TH/MM3 (0-0.4); EOSINOPHIL % 3.7 % (0.0-4.0); HEMATOCRIT 28.4 % (39.0-51.0); LYMPH % 6.8 % (9.0-44.0); LYMPHOCYTE # 0.5 TH/MM3 (1.0-4.8); MEAN CORPUSCULAR HEMOGLOBIN 24.7 PG (27.0-34.0); MEAN CORPUSCULAR HGB CONC 31.7 % (32.0-36.0); MONO % 9.7 % (0.0-8.0); NEUT % 78.9 % (16.0-70.0); PLATELET COUNT 236 TH/MM3 (150-450); RED BLOOD COUNT 3.64 MIL/MM3 (4.50-5.90); RED CELL DISTRIBUTION WIDTH 20.9 % (11.6-17.2); WHITE BLOOD COUNT 6.9 TH/MM3 (4.0-11.0)
[2016-11-17 06:38] LABS: HEMO FLAGS AUTO DIFF
[2016-11-17 06:52] LABS: ALKALINE PHOSPHATASE 191 U/L (45-117); ALT (GPT) 36 U/L (12-78); ANION GAP 10 MEQ/L (5-15); AST (GOT) 31 U/L (15-37); BICARBONATE 29.3 MEQ/L (21.0-32.0); BLOOD UREA NITROGEN 66 MG/DL (7-18); CHLORIDE 102 MEQ/L (98-107); GLOMERULAR FILTRATION RATE 40 ML/MIN (>89); MAGNESIUM 2.3 MG/DL (1.5-2.5); POTASSIUM 4.8 MEQ/L (3.5-5.1); SODIUM (NA) 141 MEQ/L (136-145); TOTAL BILIRUBIN ADULT 3.2 MG/DL (0.2-1.0)
[2016-11-17] MEDS: FUROSEMIDE 40 MG TAB PO SCH (08:03)
[2016-11-17] MEDS: SPIRONOLACTONE 25 MG TAB PO SCH (08:03)
[2016-11-17] MEDS: METOPROLOL TARTRATE 25 MG TAB PO SCH ×2 (08:03→21:39)
[2016-11-17] MEDS: ASPIRIN EC 81 MG TABEC PO SCH (08:03)
[2016-11-17] MEDS: SODIUM CHLORIDE 0.9% FLUSH 5 ML FLUSH FLUSH SCH ×2 (08:04→21:39)
[2016-11-17 08:26] LABS: POLYCHROMASIA 2.6 % (0.0-1.9)
[2016-11-17 08:27] LABS: BURR CELLS 1+ (NORMAL); OVALOCYTES 1+ (NORMAL); SCAN/DIFF AUTO DIFF CONFIRMED; TARGET CELLS 2+ (NORMAL)
--- NOTE | 2016-11-17 09:38 | HHI.GIFU ---
Subjective Remarks Resting in bed. No abdominal pain. No n/v. No bleeding. Objective Vitals I&O Vital Signs Date Time Temp Pulse Resp B/P Pulse Ox O2 Delivery O2 Flow Rate FiO2 11/17/16 04:00 98.1 94 20 117/66 100 11/17/16 00:00 97.9 91 20 113/74 98 11/16/16 23:03 100 Nasal Cannula 3.00 11/16/16 20:46 100 Nasal Cannula 3.00 11/16/16 20:00 97.7 97 18 108/72 99 11/16/16 16:00 98.0 90 20 97/67 100 11/16/16 15:56 100 Nasal Cannula 4.00 11/16/16 15:56 100 Nasal Cannula 4 36 11/16/16 15:40 100 50 11/16/16 11:03 97.7 86 16 107/78 100 Room Air 11/16/16 10:25 96 16 133/85 99 11/16/16 10:20 86 16 100 Room Air 11/16/16 10:05 98.2 93 16 119/80 100 Nasal Cannula 3 11/16/16 09:36 97.3 89 16 105/72 100 Nasal Cannula 2 I/O 11/16/16 11/16/16 11/16/16 11/17/16 11/17/16 11/17/16 07:00 15:00 23:00 07:00 15:00 23:00 Intake Total 250 ml 50 ml 0 ml Output Total 125 ml 100 ml 150 ml Balance 125 ml -50 ml -150 ml Intake Oral 0 ml 0 ml 0 ml IV Total 50 ml 0 ml Packed Cells 250 ml Output Urine Total 125 ml 100 ml 150 ml # Voids 1 1 1 Laboratory Laboratory Tests Test 11/16/16 11/16/16 11/16/16 11/16/16 10:00 13:09 14:10 14:12 Hemoglobin 7.9 8.6 Hematocrit 25.3 27.3 Nasal Screen MRSA (PCR) NEGATIVE Total Creatine Kinase 45 Troponin I 0.11 Test 11/16/16 11/17/16 20:38 04:21 Hemoglobin 8.9 9.0 Hematocrit 28.4 28.4 White Blood Count 6.9 Red Blood Count 3.64 Mean Corpuscular Volume 78.0 Mean Corpuscular Hemoglobin 24.7 Mean Corpuscular Hemoglobin 31.7 Concent Red Cell Distribution Width 20.9 Platelet Count 236 Mean Platelet Volume 7.9 Neutrophils (%) (Auto) 78.9 Lymphocytes (%) (Auto) 6.8 Monocytes (%) (Auto) 9.7 Eosinophils (%) (Auto) 3.7 Basophils (%) (Auto) 0.9 Neutrophils # (Auto) 5.4 Lymphocytes # (Auto) 0.5 Monocytes # (Auto) 0.7 Eosinophils # (Auto) 0.3 Basophils # (Auto) 0.1 CBC Comment AUTO DIFF Differential Comment AUTO DIFF CONFIRMED Polychromasia 2.6 Target Cells 2+ Ovalocytes 1+ Yandy Cells 1+ Sodium Level 141 Potassium Level 4.8 Chloride Level 102 Carbon Dioxide Level 29.3 Anion Gap 10 Blood Urea Nitrogen 66 Creatinine 1.97 Estimat Glomerular Filtration 40 Rate Random Glucose 83 Calcium Level 8.5 Phosphorus Level 5.1 Magnesium Level 2.3 Total Bilirubin 3.2 Aspartate Amino Transf 31 (AST/SGOT) Alanine Aminotransferase 36 (ALT/SGPT) Alkaline Phosphatase 191 Total Protein 6.5 Albumin 2.7 Imaging Last Impressions Chest X-Ray 11/16/16 0000 Signed Impressions: Service Date/Time: Wednesday, November 16, 2016 13:18 - CONCLUSION: 1. Endotracheal tube in appropriate position with tip measuring approximately 3.4 cm from the jason. 2. Chronic pleural calcification and pleural thickening versus pleural effusion on the right. Ivan Choi MD Head CT 11/15/16 0000 Signed Impressions: Service Date/Time: Wednesday, November 16, 2016 01:00 - CONCLUSION: 1. Mild symmetric cortical atrophy as well as some periventricular small vessel ischemic demyelination. 2. Minimal chronic sinusitis in the right maxillary antra. 3. Otherwise negative with no acute intracranial process. Juan Ferrara MD Physical Exam HEENT: Normocephalic; atraumatic; no jaundice. CHEST: CTA CARDIAC: RRR ABDOMEN: Soft, nondistended, nontender; no hepatosplenomegaly; bowel sounds are present in all four quadrants. EXTREMITIES: No clubbing, cyanosis, or edema. SKIN: Normal; no rash; no jaundice. PEDIATRICIAN: No focal deficits; alert and oriented times three. Assessment and Plan Plan ASSESSMENT: - Anemia/melena/heme (+) stools. S/P EGD (11/16/16)----> severe gastritis with a few ulcerations. Pathology pending. PPI. HH stable 9.0.4. No n/v/pain. No active bleeding. - Acute on chronic anemia. .0.4. - ? Seizures activity- CT the brain did not reveal any signs of acute intracranial processes - Chronic kidney disease - HTN, DM, CHF EF of 30%, PPM/AICD per attending Plan: - Heart healthy 1800 ADA - Await pathology - Cont. PPI - HH - Transfuse as needed - Consider colonoscopy/capsule endoscopy as outpatient. - Supportive care - Patient seen and examined by Dr. Garcia and myself and this note is written on his behalf. Alma Horan Nov 17, 2016 09:38
[2016-11-17] MEDS ORDERED: INFLUENZA VIRUS VACCINE (QUADRIVALENT) 0.5 ML SYR IM ONE (10:00)
[2016-11-17] MEDS ORDERED: PNEUMOCOCCAL POLYVALENT INJ 25 MCG/0.5 ML SYR IM ONE (10:00)
--- NOTE | 2016-11-17 12:42 | HHI.PR ---
Subjective Remarks Awake, A&O. Wants to get up. Objective Vital Signs Date Time Temp Pulse Resp B/P Pulse Ox O2 Delivery O2 Flow Rate FiO2 11/17/16 12:00 92 11/17/16 12:00 98.0 92 20 116/77 92 11/17/16 10:00 87 11/17/16 08:00 97.7 94 18 109/73 99 11/17/16 08:00 94 11/17/16 04:00 98.1 94 20 117/66 100 11/17/16 00:00 97.9 91 20 113/74 98 11/16/16 23:03 100 Nasal Cannula 3.00 11/16/16 20:46 100 Nasal Cannula 3.00 11/16/16 20:00 97.7 97 18 108/72 99 11/16/16 16:00 98.0 90 20 97/67 100 11/16/16 15:56 100 Nasal Cannula 4.00 11/16/16 15:56 100 Nasal Cannula 4 36 11/16/16 15:40 100 50 I/O 11/16/16 11/16/16 11/16/16 11/17/16 11/17/16 11/17/16 07:00 15:00 23:00 07:00 15:00 23:00 Intake Total 250 ml 50 ml 0 ml Output Total 125 ml 100 ml 150 ml Balance 125 ml -50 ml -150 ml Intake Oral 0 ml 0 ml 0 ml IV Total 50 ml 0 ml Packed Cells 250 ml Output Urine Total 125 ml 100 ml 150 ml # Voids 1 1 1 Result Diagram: 11/17/16 0421 11/17/16 0421 Imaging Last Impressions Chest X-Ray 11/16/16 0000 Signed Impressions: Service Date/Time: Wednesday, November 16, 2016 13:18 - CONCLUSION: 1. Endotracheal tube in appropriate position with tip measuring approximately 3.4 cm from the jason. 2. Chronic pleural calcification and pleural thickening versus pleural effusion on the right. Ivan Choi MD Head CT 11/15/16 0000 Signed Impressions: Service Date/Time: Wednesday, November 16, 2016 01:00 - CONCLUSION: 1. Mild symmetric cortical atrophy as well as some periventricular small vessel ischemic demyelination. 2. Minimal chronic sinusitis in the right maxillary antra. 3. Otherwise negative with no acute intracranial process. Juan Ferrara MD Procedures EGD Intubation Extubation Objective Remarks GENERAL: Well-nourished, well-developed patient. SKIN: Warm and dry. HEAD: Normocephalic. EYES: No scleral icterus. No injection or drainage. NECK: Supple, trachea midline. No JVD or lymphadenopathy. CARDIOVASCULAR: Regular rate and rhythm without murmurs, gallops, or rubs. RESPIRATORY: Breath sounds equal bilaterally. No accessory muscle use. GASTROINTESTINAL: Abdomen soft, non-tender, nondistended. EXTREMITIES: No cyanosis, or edema. NEUROLOGICAL: Awake, alert, and oriented x 3. Non-focal. Medications and IVs Current Medications Medications (Trade) Dose Ordered Sig/Deborah Route Start Time Stop Time Status Last Admin (Ecotrin Ec) 81 mg DAILY PO 11/16/16 09:00 11/17/16 08:03 (Lasix) 40 mg DAILY PO 11/16/16 09:00 11/17/16 08:03 (Lopressor) 25 mg BID PO 11/16/16 09:00 11/17/16 08:03 (Aldactone) 25 mg DAILY PO 11/16/16 09:00 11/17/16 08:03 (NS Flush) 2 ml UNSCH PRN FLUSH 11/16/16 05:00 (NS Flush) 2 ml BID FLUSH 11/16/16 09:00 11/17/16 08:04 (Tylenol) 650 mg Q4H PRN PO 11/16/16 05:00 Naloxone HCl 0.4 mg 0.4 mg UNSCH PRN IV 11/16/16 05:00 Midazolam HCl 100 ml @ 0 mls/hr TITRATE IV 11/16/16 14:00 Fentanyl Citrate 250 ml @ 0 mls/hr TITRATE IV 11/16/16 14:00 (Diprivan 1000 Mg/100ml Inj) 100 ml @ 0 mls/hr TITRATE IV 11/16/16 14:00 Assessment and Plan Problem List: (1) Hypoxemia Status: Acute Plan: Hypoxic after EGD yesterday, stable today on NC O2.. (2) Hypertension Status: Chronic Plan: Stable on home medications. (3) Severe anemia Status: Acute Plan: Hgb 9.0, not transfused, admitted at 7.3, EGD showing severe gastritis, Bx pending. On PPI. Outpt. colonoscopy. GI following. (4) GI bleed Status: Acute Plan: EGD showed gastritis, no bleeding source. Dr. Garcia will do colonoscopy when stable. Assessment and Plan Stable for transfer out of unit. Back to [facility] in a.m. to continue cardiac rehab if stable. Dr. Eugene, RN. Problem Qualifiers (1) Hypertension: Qualified Code: I10 - Essential hypertension (2) GI bleed: Naima Dia Nov 17, 2016 12:42
--- NOTE | 2016-11-17 12:49 | EKG ---
Date Performed: 11/15/2016 Time Performed: 23:28:36 PTAGE: 81 years EKG: ELECTRONIC VENTRICULAR PACEMAKER ABNORMAL RHYTHM ECG INTERPRETATION BASED ON A DEFAULT AGE OF 40 YEARS PREVIOUS TRACING : 11/11/2016 07.50 DOCTOR: Carlos Murry Interpretating Date/Time 11/17/2016 12:48:22
--- NOTE | 2016-11-17 13:22 | HHI.CCPN ---
Objective Vital Signs Date Time Temp Pulse Resp B/P Pulse Ox O2 Delivery O2 Flow Rate FiO2 11/17/16 12:00 92 11/17/16 12:00 98.0 20 116/77 92 11/16/16 23:03 Nasal Cannula 3.00 11/16/16 15:56 36 Intake and Output 11/16/16 11/16/16 11/17/16 08:00 16:00 00:00 Intake Total 0 ml 250 ml 50 ml Output Total 125 ml 100 ml Balance 0 ml 125 ml -50 ml Result Diagram: 11/17/16 0421 11/17/16 0421 Imaging Last 24 hours Impressions Chest X-Ray 11/16/16 0000 Signed Impressions: Service Date/Time: Wednesday, November 16, 2016 13:18 - CONCLUSION: 1. Endotracheal tube in appropriate position with tip measuring approximately 3.4 cm from the jason. 2. Chronic pleural calcification and pleural thickening versus pleural effusion on the right. Ivan Choi MD Objective Remarks GENERAL: Elderly man sedated and intubated SKIN: Warm and dry. HEAD: Normocephalic. EYES: No scleral icterus. No injection or drainage. NECK: Supple, trachea midline. No JVD or lymphadenopathy. CARDIOVASCULAR: Regular rate and rhythm without murmurs, gallops, or rubs. RESPIRATORY: Breath sounds equal bilaterally. No accessory muscle use. GASTROINTESTINAL: Abdomen soft, non-tender, nondistended. MUSCULOSKELETAL: No cyanosis, or edema. BACK: Nontender without obvious deformity. No CVA tenderness. A/P Problem List: (1) Acute on chronic renal insufficiency ICD Code: N28.9 Status: Resolved (2) GI bleed ICD Code: K92.2 Status: Acute Assessment and Plan Respiratory failure - Intubated for endoscopy procedure - Extubated and doing well Anemia - Of chronic disease - Chronic renal insufficiency - Negative endoscopy - Monitor H&H - Transfuse if hemoglobin less than 7 Positive Hemoccult - Endoscopy results: 1. Sever gastritis with few ulcerations in the antrum Bx done,no sign of active bleed 2. Normal endoscopy otherwise 3. Retroflexed views revealed no abnormalities - Protonix - For the per GI recommendations CHF - No exacerbations - Continue REENA inhibitor - AICD in place Diabetes mellitus - Insulin sliding scale DVT GI prophylaxis - Teds SCDs Protonix Patient has been comfortable on nasal cannula hemodynamically stable not on pressors critical care medicine will sign off. Thank you very much for allowing us to participate in care of this patient. Please reconsult as needed Problem Qualifiers (1) GI bleed: Eamon Naqvi MD Nov 17, 2016 13:21
[2016-11-18] VITALS (14 sets, daily range): BP systolic 101–127; BP diastolic 72–86; PULSE 90–101; RESP 17–29; TEMP 98–98.6; O2SAT 93–100
[2016-11-18] MEDS: SPIRONOLACTONE 25 MG TAB PO SCH (08:35)
[2016-11-18] MEDS: METOPROLOL TARTRATE 25 MG TAB PO SCH ×2 (08:35→20:46)
[2016-11-18] MEDS: ASPIRIN EC 81 MG TABEC PO SCH (08:35)
[2016-11-18] MEDS: FUROSEMIDE 40 MG TAB PO SCH (08:35)
[2016-11-18] MEDS: SODIUM CHLORIDE 0.9% FLUSH 5 ML FLUSH FLUSH SCH ×2 (08:35→20:47)
[2016-11-18] MEDS ORDERED: LORazepam 2 MG/ML VIAL ONE (10:00)
[2016-11-18] MEDS ORDERED: levETIRAcetam 1000 MG INJ 100 ML IV ONE (10:30)
--- NOTE | 2016-11-18 13:32 | HHI.GIFU ---
Subjective Remarks Resting in bed. No active bleeding. Getting EEG (Alma Horan) Objective Vitals I&O Vital Signs Date Time Temp Pulse Resp B/P Pulse Ox O2 Delivery O2 Flow Rate FiO2 11/18/16 12:00 100 11/18/16 12:00 98.1 100 25 119/81 99 11/18/16 11:17 97 Nasal Cannula 2.00 11/18/16 10:00 90 11/18/16 08:00 98.6 96 17 101/72 93 11/18/16 08:00 96 11/18/16 06:00 93 11/18/16 04:00 97 11/18/16 04:00 98.4 98 23 120/86 100 11/18/16 02:00 98 11/18/16 00:00 99 11/18/16 00:00 98.1 99 22 120/79 99 11/17/16 22:00 100 11/17/16 20:47 100 Nasal Cannula 2.00 11/17/16 20:00 104 11/17/16 20:00 97.9 104 21 122/78 98 11/17/16 18:00 105 11/17/16 16:00 98.7 101 25 114/78 98 11/17/16 16:00 101 11/17/16 14:00 98 I/O 11/17/16 11/17/16 11/17/16 11/18/16 11/18/16 11/18/16 07:00 15:00 23:00 07:00 15:00 23:00 Intake Total 0 ml 480 ml 185 ml 200 ml Output Total 150 ml 1075 ml 700 ml 500 ml Balance -150 ml -595 ml -515 ml -300 ml Intake Oral 0 ml 480 ml 180 ml 200 ml IV Total 0 ml 0 ml 5 ml Output Urine Total 150 ml 1075 ml 700 ml 500 ml Stool Total 0 ml # Voids 1 3 2 2 # Bowel Movements 0 0 Imaging Last Impressions Chest X-Ray 11/16/16 0000 Signed Impressions: Service Date/Time: Wednesday, November 16, 2016 13:18 - CONCLUSION: 1. Endotracheal tube in appropriate position with tip measuring approximately 3.4 cm from the jason. 2. Chronic pleural calcification and pleural thickening versus pleural effusion on the right. Ivan Choi MD Head CT 11/15/16 0000 Signed Impressions: Service Date/Time: Wednesday, November 16, 2016 01:00 - CONCLUSION: 1. Mild symmetric cortical atrophy as well as some periventricular small vessel ischemic demyelination. 2. Minimal chronic sinusitis in the right maxillary antra. 3. Otherwise negative with no acute intracranial process. Juan Ferrara MD Physical Exam HEENT: Normocephalic; atraumatic; no jaundice. CHEST: CTA CARDIAC: RRR ABDOMEN: Soft, nondistended, nontender; no hepatosplenomegaly; bowel sounds are present in all four quadrants. EXTREMITIES: No clubbing, cyanosis, or edema. SKIN: Normal; no rash; no jaundice. LICENSED STAFF MFT: No focal deficits; alert and oriented times three. (Alma Horan) Assessment and Plan Plan ASSESSMENT: - Anemia/melena/heme (+) stools. S/P EGD (11/16/16)----> severe gastritis with a few ulcerations. Pathology pending. PPI. HH stable 9.0/28.4. No n/v/pain. No active bleeding. - Acute on chronic anemia. 9.0/28.4 - ? Seizures activity- CT the brain did not reveal any signs of acute intracranial processes, Getting EEG. - Chronic kidney disease - HTN, DM, CHF EF of 30%, PPM/AICD per attending Plan: - Heart healthy 1800 ADA - Await pathology - Protonix 40mg po BID - Monitor HH - Transfuse as needed - Consider colonoscopy/capsule endoscopy as outpatient. - FU YAHIR 2 weeks - GI will sign off, please reconsult as needed - Patient seen and examined by Dr. Mike and myself and this note is written on his behalf. (Alma oHran) Physician Comments Seen and examined with JAYLA, no bleeding reported. H/H stable. GI will sign off , reconsult as needed. Thank you (Marilyn Mike MD) Alma Horan Nov 18, 2016 13:32 Marilyn Mike MD Nov 18, 2016 20:00
--- NOTE | 2016-11-18 13:34 | MB ---
cc: OXANA PERSON M.D. DATE OF CONSULTATION: 11/18/2016. REASON FOR CONSULTATION: HISTORY OF PRESENT ILLNESS: He is an 81-year-old seen in neurological consultation because of seizures. He was admitted on 11/15 when he came in with some questionable seizure activity at home. He apparently comes from a nursing care facility and reportedly he sat up straight in bed. He was disoriented and had seizure-like activity. He seemed to be fine, initially found to have significant anemia, he was eventually intubated after a GI procedure. He seemed to be doing better and today he was noted to have at least that three seizures described as staring to the right side and there was some tremoring and some postictal. He was given 2 mg IV Ativan. He has a history of heart disease with an AICD, low ejection fraction, diabetes and hypertensive disease. EXAMINATION: The exam showed the patient to be somewhat lethargic, awaken and obviously confused, disoriented to place, knew his age but only followed some very simple commands, moved all four extremities. He was able to count fingers. Behavior is a bit odd during the exam. At times he started raising the arms and touching both of his hands together, not obviously a seizure but certainly a possibility. Reflexes were absent throughout, plantar responses none versus extensor. IMAGING STUDIES: The patient had a CT brain on admission showing mild atrophy and some right maxillary sinus disease. LABORATORY DATA: Current labs: WBC yesterday 6.9, hemoglobin 9.0, but on admission hemoglobin was 7.3, platelets 236,000. Chemistry yesterday with BUN 66, creatinine 1.97 otherwise normal basic chemistry. ASSESSMENT: Seizure disorder. He probably had a seizure in the nursing facility which brought him to the hospital and seemed to be okay but today he has had at least three seizures according to the nursing staff. RECOMMENDATIONS AND PLAN: 1. I have started him on Keppra 1 gram IV now. 2. Obtain an EEG. 3. Continue p.r.n. Ativan. 4. He is unable to have an MRI due to the AICD. 5. Will watch how he progresses before any other intervention has taken place. Thank you for asking us to assist in his care. MD MIKAELA Washington/JCHiram /11:09 AM /1:27 PM
--- NOTE | 2016-11-18 13:57 | MG ---
cc: OXANA POWERS M.D. Lab No: Date: 11/18/2016 Age: 81 Sex: M Race: An EEG was obtained on this 81-year-old patient with history of seizures. MEDICATIONS: 1. Keppra. 2. Lopressor. 3. Aldactone. 4. Lasix. DESCRIPTION OF RECORD: The patient is described as awake and hallucinating. The EEG is showing low amplitude beta rhythms intermixed with some theta activity. There is a very limited amount of alpha activity. There are some predominant asleep in this recording. There is no change with photic stimulation. INTERPRETATION: Abnormal EEG because of mild slowing, diffuse, suggestive of the diffuse disturbance of cerebral function. No epileptiform features are present. Clinical correlation. Oxana Powers MD [facility] /1:41 PM /1:55 PM
--- NOTE | 2016-11-18 15:42 | HHI.PR ---
Subjective Remarks Awake, confused, not following direction. Objective Vital Signs Date Time Temp Pulse Resp B/P Pulse Ox O2 Delivery O2 Flow Rate FiO2 11/18/16 14:00 98 11/18/16 12:00 100 11/18/16 12:00 98.1 100 25 119/81 99 11/18/16 11:17 97 Nasal Cannula 2.00 11/18/16 10:00 90 11/18/16 08:00 98.6 96 17 101/72 93 11/18/16 08:00 96 11/18/16 06:00 93 11/18/16 04:00 97 11/18/16 04:00 98.4 98 23 120/86 100 11/18/16 02:00 98 11/18/16 00:00 99 11/18/16 00:00 98.1 99 22 120/79 99 11/17/16 22:00 100 11/17/16 20:47 100 Nasal Cannula 2.00 11/17/16 20:00 104 11/17/16 20:00 97.9 104 21 122/78 98 11/17/16 18:00 105 11/17/16 16:00 98.7 101 25 114/78 98 11/17/16 16:00 101 I/O 11/17/16 11/17/16 11/17/16 11/18/16 11/18/16 11/18/16 07:00 15:00 23:00 07:00 15:00 23:00 Intake Total 0 ml 480 ml 185 ml 200 ml 240 ml Output Total 150 ml 1075 ml 700 ml 500 ml 350 ml Balance -150 ml -595 ml -515 ml -300 ml -110 ml Intake Oral 0 ml 480 ml 180 ml 200 ml 120 ml IV Total 0 ml 0 ml 5 ml 120 ml Output Urine Total 150 ml 1075 ml 700 ml 500 ml 350 ml Stool Total 0 ml # Voids 1 3 2 2 1 # Bowel Movements 0 0 0 Result Diagram: 11/17/1642011/17/16420 Procedures EGD Intubation Extubation Objective Remarks GENERAL: Well-nourished, well-developed patient. SKIN: Warm and dry. HEAD: Normocephalic. EYES: No scleral icterus. No injection or drainage. NECK: Supple, trachea midline. No JVD or lymphadenopathy. CARDIOVASCULAR: Regular rate and rhythm without murmurs, gallops, or rubs. RESPIRATORY: Breath sounds equal bilaterally. No accessory muscle use. GASTROINTESTINAL: Abdomen soft, non-tender, nondistended. EXTREMITIES: No cyanosis, or edema. NEUROLOGICAL: Awake, confused, agitated. Medications and IVs Current Medications Medications (Trade) Dose Ordered Sig/Deborah Route Start Time Stop Time Status Last Admin (Ecotrin Ec) 81 mg DAILY PO 11/16/16 09:00 11/18/16 08:35 (Lasix) 40 mg DAILY PO 11/16/16 09:00 11/18/16 08:35 (Lopressor) 25 mg BID PO 11/16/16 09:00 11/18/16 08:35 (Aldactone) 25 mg DAILY PO 11/16/16 09:00 11/18/16 08:35 (NS Flush) 2 ml UNSCH PRN FLUSH 11/16/16 05:00 (NS Flush) 2 ml BID FLUSH 11/16/16 09:00 11/18/16 08:35 (Tylenol) 650 mg Q4H PRN PO 11/16/16 05:00 Naloxone HCl 0.4 mg 0.4 mg UNSCH PRN IV 11/16/16 05:00 Midazolam HCl 100 ml @ 0 mls/hr TITRATE IV 11/16/16 14:00 Fentanyl Citrate 250 ml @ 0 mls/hr TITRATE IV 11/16/16 14:00 (Diprivan 1000 Mg/100ml Inj) 100 ml @ 0 mls/hr TITRATE IV 11/16/16 14:00 (Keppra) 500 mg Q12HR PO 11/18/16 21:00 (Protonix) 40 mg Q12HR PO 11/18/16 21:00 Assessment and Plan Problem List: (1) Hypoxemia Status: Acute Plan: Stable on NC O2. (2) Hypertension Status: Chronic Plan: Stable on home medications. (3) Severe anemia Status: Acute Plan: Hgb 9.0, not transfused, admitted at 7.3, EGD showing severe gastritis, Bx pending. On PPI. Outpt. colonoscopy. GI following. (4) GI bleed Status: Acute Plan: EGD showed gastritis, no bleeding source. Dr. Garcia will do colonoscopy when stable. (5) Seizure Status: Acute Plan: Seizure activity noted by nurse. Neuro consulted, seizure precautions initiated. EEG in progress. Assessment and Plan New onset seizure activity noted, pt's brother called, who is the POA, and asked for a Hospice consult. Ordered. Dr. Eugene, RN. Problem Qualifiers (1) Hypertension: Qualified Code: I10 - Essential hypertension (2) GI bleed: Naima Dia Nov 18, 2016 15:42
[2016-11-18] MEDS: PANTOPRAZOLE SOD 40 MG DELAYED RELEASE TAB PO SCH (20:46)
[2016-11-18] MEDS: levETIRAcetam 500 MG TAB PO SCH (20:46)
[2016-11-19] VITALS (11 sets, daily range): BP systolic 93–137; BP diastolic 32–83; PULSE 84–103; RESP 18–22; TEMP 95.8–98.2; O2SAT 94–99
--- NOTE | 2016-11-19 07:24 | HHI.PR ---
Subjective Remarks had lengthy discussion with brother RAJEEV last PM DNR now signed Objective Vital Signs Date Time Temp Pulse Resp B/P Pulse Ox O2 Delivery O2 Flow Rate FiO2 11/19/16 06:00 100 11/19/16 04:00 103 11/19/16 04:00 98.2 103 21 122/76 99 11/19/16 02:00 92 11/19/16 00:00 95 11/19/16 00:00 98.0 95 20 137/83 96 11/18/16 22:00 98 11/18/16 20:00 101 11/18/16 20:00 98.2 101 29 127/86 100 11/18/16 19:42 95 Nasal Cannula 5.00 11/18/16 18:00 98 11/18/16 16:00 98.0 95 29 120/81 97 11/18/16 16:00 95 11/18/16 14:00 98 11/18/16 12:00 100 11/18/16 12:00 98.1 100 25 119/81 99 11/18/16 11:17 97 Nasal Cannula 2.00 11/18/16 10:00 90 11/18/16 08:00 98.6 96 17 101/72 93 11/18/16 08:00 96 I/O 11/18/16 11/18/16 11/18/16 11/19/16 11/19/16 11/19/16 07:00 15:00 23:00 07:00 15:00 23:00 Intake Total 200 ml 240 ml 60 ml 80 ml Output Total 500 ml 350 ml 400 ml 600 ml Balance -300 ml -110 ml -340 ml -520 ml Intake Oral 200 ml 120 ml 60 ml IV Total 120 ml 80 ml Output Urine Total 500 ml 350 ml 400 ml 600 ml # Voids 2 1 # Bowel Movements 0 0 Result Diagram: 11/17/16 0421 11/17/16 042 Procedures EGD Intubation Extubation Other Results had seizure yesterday neuro consulted seizure precautiions instituted stable now Objective Remarks GENERAL: SKIN: Warm and dry. HEAD: Atraumatic. Normocephalic. EYES: Pupils equal and round. No scleral icterus. No injection or drainage. ENT: No nasal bleeding or discharge. Mucous membranes pink and moist. NECK: Trachea midline. No JVD. CARDIOVASCULAR: Regular rate and rhythm. RESPIRATORY: No accessory muscle use. Clear to auscultation. Breath sounds equal bilaterally. GASTROINTESTINAL: Abdomen soft, non-tender, nondistended. Hepatic and splenic margins not palpable. MUSCULOSKELETAL: Extremities without clubbing, cyanosis, or edema. No obvious deformities. NEUROLOGICAL:deep sleep now No obvious cranial nerve deficits. Motor grossly within normal limits. Five out of 5 muscle strength in the arms and legs. Medications and IVs Current Medications Medications (Trade) Dose Ordered Sig/Deborah Route PRN Reason Start Time Stop Time Status Last Admin Dose Admin Aspirin (Ecotrin Ec) 81 mg DAILY PO 11/16/16 09:00 11/18/16 08:35 Furosemide (Lasix) 40 mg DAILY PO 11/16/16 09:00 11/18/16 08:35 Metoprolol Tartrate (Lopressor) 25 mg BID PO 11/16/16 09:00 11/18/16 20:46 Spironolactone (Aldactone) 25 mg DAILY PO 11/16/16 09:00 11/18/16 08:35 IV Flush (NS Flush) 2 ml UNSCH PRN FLUSH FLUSH AFTER USING IV ACCESS 11/16/16 05:00 IV Flush (NS Flush) 2 ml BID FLUSH 11/16/16 09:00 11/18/16 20:47 Acetaminophen (Tylenol) 650 mg Q4H PRN PO TEMP > 100.4 11/16/16 05:00 Naloxone HCl 0.4 mg 0.4 mg UNSCH PRN IV SEE LABEL COMMENTS 11/16/16 05:00 Midazolam HCl 100 ml @ 0 mls/hr TITRATE IV 11/16/16 14:00 Fentanyl Citrate 250 ml @ 0 mls/hr TITRATE IV 11/16/16 14:00 Propofol (Diprivan 1000 Mg/100ml Inj) 100 ml @ 0 mls/hr TITRATE IV 11/16/16 14:00 Levetriacetam (Keppra) 500 mg Q12HR PO 11/18/16 21:00 11/18/16 20:46 Pantoprazole Sodium (Protonix) 40 mg Q12HR PO 11/18/16 21:00 11/18/16 20:46 Assessment and Plan Problem List: (1) Seizure Status: Acute Plan: seizure now controlled on keppra (2) GI bleed Status: Acute Plan: no further bleeding hgb stable Assessment and Plan DNR signed may move to tele unit and off icu continue seizure precautions Discussed Condition With nursing and POA Discharge Planning return to SNF Problem Qualifiers (1) GI bleed: Chris Eugene DO Nov 19, 2016 07:24
[2016-11-19] MEDS: ASPIRIN EC 81 MG TABEC PO SCH (08:23)
[2016-11-19] MEDS: SODIUM CHLORIDE 0.9% FLUSH 5 ML FLUSH FLUSH SCH ×2 (08:23→22:21)
[2016-11-19] MEDS: METOPROLOL TARTRATE 25 MG TAB PO SCH ×3 (08:23→22:20)
[2016-11-19] MEDS: FUROSEMIDE 40 MG TAB PO SCH (08:23)
[2016-11-19] MEDS: PANTOPRAZOLE SOD 40 MG DELAYED RELEASE TAB PO SCH ×2 (08:23→22:20)
[2016-11-19] MEDS: SPIRONOLACTONE 25 MG TAB PO SCH (08:23)
[2016-11-19] MEDS: levETIRAcetam 500 MG TAB PO SCH ×2 (08:23→22:20)
[2016-11-19] MEDS ORDERED: LORazepam 2 MG/ML VIAL IVP PRN (09:00)
--- NOTE | 2016-11-19 16:56 | HHI.PR ---
Review/Management Daily Summary 11/19 lethargic but awakened and following commands more speech than yesterday moves 4 limbs slowly continue keppra and watch course Subjective Subjective Comments No seziure events reported Active Medications Current Medications Medications (Trade) Dose Ordered Sig/Deborah Route Start Time Stop Time Status Last Admin (Ecotrin Ec) 81 mg DAILY PO 11/16/16 09:00 11/19/16 08:23 (Lasix) 40 mg DAILY PO 11/16/16 09:00 11/19/16 08:23 (Lopressor) 25 mg BID PO 11/16/16 09:00 11/19/16 08:23 (Aldactone) 25 mg DAILY PO 11/16/16 09:00 11/19/16 08:23 (NS Flush) 2 ml UNSCH PRN FLUSH 11/16/16 05:00 (NS Flush) 2 ml BID FLUSH 11/16/16 09:00 11/19/16 08:23 (Tylenol) 650 mg Q4H PRN PO 11/16/16 05:00 (Narcan Inj) 0.4 mg UNSCH PRN IV 11/16/16 05:00 (Keppra) 500 mg Q12HR PO 11/18/16 21:00 11/19/16 08:23 (Protonix) 40 mg Q12HR PO 11/18/16 21:00 11/19/16 08:23 (Ativan Inj) 2 mg Q15M PRN IVP 11/19/16 09:00 Allergies Allergies Coded Allergies No Known Allergies (Verified11/15/16) Exam I&O / VS 11/18/16 11/18/16 11/19/16 15:00 23:00 07:00 Intake Total 240 ml 60 ml 80 ml Output Total 350 ml 400 ml 600 ml Balance -110 ml -340 ml -520 ml Intake Oral 120 ml 60 ml IV Total 120 ml 80 ml Output Urine Total 350 ml 400 ml 600 ml # Voids 1 # Bowel Movements 0 Vital Signs Date Time Temp Pulse Resp B/P Pulse Ox O2 Delivery O2 Flow Rate FiO2 11/19/16 16:25 96.3 91 22 123/49 11/19/16 13:00 95.9 87 22 93/32 11/19/16 10:17 95.8 84 22 97/47 11/19/16 09:10 Nasal Cannula 4.00 11/19/16 08:00 96.2 96 22 124/79 94 11/19/16 08:00 96 11/19/16 06:00 100 11/19/16 04:00 103 11/19/16 04:00 98.2 103 21 122/76 99 11/19/16 02:00 92 11/19/16 00:00 95 11/19/16 00:00 98.0 95 20 137/83 96 11/18/16 22:00 98 11/18/16 20:00 101 11/18/16 20:00 98.2 101 29 127/86 100 11/18/16 19:42 95 Nasal Cannula 5.00 11/18/16 18:00 98 Objective Micro and Labs Laboratory Tests Test 11/16/16 11/17/16 20:38 04:21 Hemoglobin 8.9 GM/DL 9.0 GM/DL (13.0-17.0) (13.0-17.0) Hematocrit 28.4 % 28.4 % (39.0-51.0) (39.0-51.0) Red Blood Count 3.64 MIL/MM3 (4.50-5.90) Mean Corpuscular Volume 78.0 FL (80.0-100.0) Mean Corpuscular Hemoglobin 24.7 PG (27.0-34.0) Mean Corpuscular Hemoglobin 31.7 % Concent (32.0-36.0) Red Cell Distribution Width 20.9 % (11.6-17.2) Neutrophils (%) (Auto) 78.9 % (16.0-70.0) Lymphocytes (%) (Auto) 6.8 % (9.0-44.0) Monocytes (%) (Auto) 9.7 % (0.0-8.0) Lymphocytes # (Auto) 0.5 TH/MM3 (1.0-4.8) Polychromasia 2.6 % (0.0-1.9) Target Cells 2+ (NORMAL) Ovalocytes 1+ (NORMAL) Tina Cells 1+ (NORMAL) Blood Urea Nitrogen 66 MG/DL (7-18) Creatinine 1.97 MG/DL (0.60-1.30) Estimat Glomerular Filtration 40 ML/MIN (>89) Rate Phosphorus Level 5.1 MG/DL (2.5-4.9) Total Bilirubin 3.2 MG/DL (0.2-1.0) Alkaline Phosphatase 191 U/L (45-117) Albumin 2.7 GM/DL (3.4-5.0) Dewey Powers MD Nov 19, 2016 16:56
[2016-11-20] VITALS (9 sets, daily range): BP systolic 96–141; BP diastolic 69–79; PULSE 53–103; RESP 16–24; TEMP 95–98.4; O2SAT 82–97
[2016-11-20] MEDS: ASPIRIN EC 81 MG TABEC PO SCH (08:50)
[2016-11-20] MEDS: SPIRONOLACTONE 25 MG TAB PO SCH (08:50)
[2016-11-20] MEDS: SODIUM CHLORIDE 0.9% FLUSH 5 ML FLUSH FLUSH SCH (08:51)
[2016-11-20] MEDS: levETIRAcetam 500 MG TAB PO SCH (08:51)
[2016-11-20] MEDS: PANTOPRAZOLE SOD 40 MG DELAYED RELEASE TAB PO SCH (08:51)
[2016-11-20] MEDS: FUROSEMIDE 40 MG TAB PO SCH (08:51)
[2016-11-20] MEDS: METOPROLOL TARTRATE 25 MG TAB PO SCH ×2 (08:51→21:00)
--- NOTE | 2016-11-20 09:24 | HHI.PR ---
Subjective Remarks had lengthy discussion with brother RAJEEV last PM DNR now signed i spoke again this am with RAJEEV brother he is undecided about placement and hospice i encouraged him to keep DNP and discuss dc planing with case management Objective Vital Signs Date Time Temp Pulse Resp B/P Pulse Ox O2 Delivery O2 Flow Rate FiO2 11/20/16 07:14 Nasal Cannula 4.00 11/20/16 04:00 97.0 93 20 112/69 94 11/20/16 00:00 97.8 82 18 112/73 82 11/19/16 20:17 Nasal Cannula 4.00 11/19/16 20:00 97.3 97 18 116/75 98 11/19/16 18:00 95 11/19/16 17:43 98 11/19/16 16:25 96.3 91 22 123/49 11/19/16 13:00 95.9 87 22 93/32 11/19/16 10:17 95.8 84 22 97/47 I/O 11/19/16 11/19/16 11/19/16 11/20/16 11/20/16 11/20/16 07:00 15:00 23:00 07:00 15:00 23:00 Intake Total 80 ml Output Total 600 ml 950 ml Balance -520 ml -950 ml IV Total 80 ml Output Urine Total 600 ml 950 ml Result Diagram: 11/17/1642011/17/16420 Procedures EGD Intubation Extubation Objective Remarks GENERAL: more alert today SKIN: Warm and dry. HEAD: Atraumatic. Normocephalic. EYES: Pupils equal and round. No scleral icterus. No injection or drainage. ENT: No nasal bleeding or discharge. Mucous membranes pink and moist. NECK: Trachea midline. No JVD. CARDIOVASCULAR: Regular rate and rhythm. RESPIRATORY: No accessory muscle use. Clear to auscultation. Breath sounds equal bilaterally. GASTROINTESTINAL: Abdomen soft, non-tender, nondistended. Hepatic and splenic margins not palpable. MUSCULOSKELETAL: Extremities without clubbing, cyanosis, or edema. No obvious deformities. NEUROLOGICAL:deep sleep now No obvious cranial nerve deficits. Motor grossly within normal limits. Five out of 5 muscle strength in the arms and legs. Medications and IVs Current Medications Medications (Trade) Dose Ordered Sig/Deborah Route PRN Reason Start Time Stop Time Status Last Admin Dose Admin Aspirin (Ecotrin Ec) 81 mg DAILY PO 11/16/16 09:00 11/20/16 08:50 Furosemide (Lasix) 40 mg DAILY PO 11/16/16 09:00 11/20/16 08:51 Metoprolol Tartrate (Lopressor) 25 mg BID PO 11/16/16 09:00 11/20/16 08:51 Spironolactone (Aldactone) 25 mg DAILY PO 11/16/16 09:00 11/20/16 08:50 IV Flush (NS Flush) 2 ml UNSCH PRN FLUSH FLUSH AFTER USING IV ACCESS 11/16/16 05:00 IV Flush (NS Flush) 2 ml BID FLUSH 11/16/16 09:00 11/20/16 08:51 Acetaminophen (Tylenol) 650 mg Q4H PRN PO TEMP > 100.4 11/16/16 05:00 Naloxone HCl (Narcan Inj) 0.4 mg UNSCH PRN IV SEE LABEL COMMENTS 11/16/16 05:00 Levetriacetam (Keppra) 500 mg Q12HR PO 11/18/16 21:00 11/20/16 08:51 Pantoprazole Sodium (Protonix) 40 mg Q12HR PO 11/18/16 21:00 11/20/16 08:51 Lorazepam (Ativan Inj) 2 mg Q15M PRN IVP SEIZURES 11/19/16 09:00 Assessment and Plan Problem List: (1) Seizure Status: Acute Plan: seizure now controlled on keppra (2) GI bleed Status: Acute Plan: no further bleeding hgb stable Assessment and Plan DNR signed may move to tele unit and off icu continue seizure precautions Discussed Condition With POA brother will speak with case management no further seizures Discharge Planning snf Problem Qualifiers (1) GI bleed: Chris Eugene DO Nov 20, 2016 09:24
--- NOTE | 2016-11-20 12:59 | HHI.PR ---
Review/Management Daily Summary 11/19 lethargic but awakened and following commands more speech than yesterday moves 4 limbs slowly continue keppra and watch course 11/20 more responsive, much more alert today, has insight overall significantly improved neuro, suspect gradually returning to baseline continue to follow Subjective Subjective Comments No acute events reported No headache Active Medications Current Medications Medications (Trade) Dose Ordered Sig/Deborah Route Start Time Stop Time Status Last Admin (Ecotrin Ec) 81 mg DAILY PO 11/16/16 09:00 11/20/16 08:50 (Lasix) 40 mg DAILY PO 11/16/16 09:00 11/20/16 08:51 (Lopressor) 25 mg BID PO 11/16/16 09:00 11/20/16 08:51 (Aldactone) 25 mg DAILY PO 11/16/16 09:00 11/20/16 08:50 (NS Flush) 2 ml UNSCH PRN FLUSH 11/16/16 05:00 (NS Flush) 2 ml BID FLUSH 11/16/16 09:00 11/20/16 08:51 (Tylenol) 650 mg Q4H PRN PO 11/16/16 05:00 (Narcan Inj) 0.4 mg UNSCH PRN IV 11/16/16 05:00 (Keppra) 500 mg Q12HR PO 11/18/16 21:00 11/20/16 08:51 (Protonix) 40 mg Q12HR PO 11/18/16 21:00 11/20/16 08:51 (Ativan Inj) 2 mg Q15M PRN IVP 11/19/16 09:00 Allergies Allergies Coded Allergies No Known Allergies (Verified11/15/16) Exam I&O / VS 11/19/16 11/19/16 11/20/16 15:00 23:00 07:00 Output Total 950 ml Balance -950 ml Output Urine Total 950 ml Vital Signs Date Time Temp Pulse Resp B/P Pulse Ox O2 Delivery O2 Flow Rate FiO2 11/20/16 12:55 103 11/20/16 12:00 96.0 94 22 96/71 11/20/16 08:00 97.9 102 24 105/71 11/20/16 07:14 Nasal Cannula 4.00 11/20/16 04:00 97.0 93 20 112/69 94 11/20/16 00:00 97.8 82 18 112/73 82 11/19/16 20:17 Nasal Cannula 4.00 11/19/16 20:00 97.3 97 18 116/75 98 11/19/16 18:00 95 11/19/16 17:43 98 11/19/16 16:25 96.3 91 22 123/49 11/19/16 13:00 95.9 87 22 93/32 Dewey Powers MD Nov 20, 2016 12:59
[2016-11-21] VITALS: BP 134/76; PULSE 72; RESP 18; TEMP 98; O2SAT 98
[2016-11-21] MEDS: levETIRAcetam 500 MG TAB PO SCH ×2 (00:22→08:22)
[2016-11-21] MEDS: PANTOPRAZOLE SOD 40 MG DELAYED RELEASE TAB PO SCH ×2 (00:22→08:23)
[2016-11-21] MEDS: METOPROLOL TARTRATE 25 MG TAB PO SCH ×2 (00:23→08:23)
[2016-11-21] MEDS: SODIUM CHLORIDE 0.9% FLUSH 5 ML FLUSH FLUSH SCH ×2 (00:23→08:23)
[2016-11-21 04:00] VITALS: BP 130/87; PULSE 63; RESP 20; TEMP 97.4; O2SAT 96
[2016-11-21 07:00] LABS: AUTOMATED NEUTROPHIL # 5.6 TH/MM3 (1.8-7.7); BASOPHIL # 0.1 TH/MM3 (0-0.2); BASOPHIL % 0.7 % (0.0-2.0); EOSINOPHIL # 0.3 TH/MM3 (0-0.4); EOSINOPHIL % 4.6 % (0.0-4.0); HEMATOCRIT 30.6 % (39.0-51.0); LYMPH % 7.8 % (9.0-44.0); LYMPHOCYTE # 0.6 TH/MM3 (1.0-4.8); MEAN CELL VOLUME 80.2 FL (80.0-100.0); MEAN CORPUSCULAR HEMOGLOBIN 24.6 PG (27.0-34.0); MEAN CORPUSCULAR HGB CONC 30.6 % (32.0-36.0); MONO % 8.1 % (0.0-8.0); NEUT % 78.8 % (16.0-70.0); PLATELET COUNT 240 TH/MM3 (150-450); RED BLOOD COUNT 3.82 MIL/MM3 (4.50-5.90); RED CELL DISTRIBUTION WIDTH 21.6 % (11.6-17.2); WHITE BLOOD COUNT 7.1 TH/MM3 (4.0-11.0)
[2016-11-21 07:10] LABS: HEMO FLAGS AUTO DIFF
[2016-11-21 07:14] LABS: BICARBONATE 27.5 MEQ/L (21.0-32.0); POTASSIUM 5.3 MEQ/L (3.5-5.1)
[2016-11-21 07:52] LABS: OVALOCYTES 1+ (NORMAL)
[2016-11-21 07:55] LABS: KERATOCYTES 1+ (NORMAL); SCAN/DIFF AUTO DIFF CONFIRMED
[2016-11-21 07:59] LABS: PLATELET ESTIMATE SMEAR NORMAL (NORMAL); PLATELET MORPHOLOGY NORMAL (NORMAL)
[2016-11-21 08:16] VITALS: BP 107/75; PULSE 108; RESP 18; TEMP 96.2; O2SAT 94
[2016-11-21] MEDS: SPIRONOLACTONE 25 MG TAB PO SCH (08:22)
[2016-11-21] MEDS: FUROSEMIDE 40 MG TAB PO SCH (08:23)
[2016-11-21] MEDS: ASPIRIN EC 81 MG TABEC PO SCH (08:23)
--- NOTE | 2016-11-21 11:07 | HHI.PR ---
Review/Management Daily Summary 11/19 lethargic but awakened and following commands more speech than yesterday moves 4 limbs slowly continue keppra and watch course 11/20 more responsive, much more alert today, has insight overall significantly improved neuro, suspect gradually returning to baseline continue to follow 11/21 remains stable, more alert per RN limited participation with PT neuro barr continue keppra and outpt f/u 2-3 weeks post d/c Subjective Subjective Comments No acute events reported No headache No chest pain No dyspnea Active Medications Current Medications Medications (Trade) Dose Ordered Sig/Deborah Route Start Time Stop Time Status Last Admin (Ecotrin Ec) 81 mg DAILY PO 11/16/16 09:00 11/21/16 08:23 (Lasix) 40 mg DAILY PO 11/16/16 09:00 11/21/16 08:23 (Lopressor) 25 mg BID PO 11/16/16 09:00 11/21/16 08:23 (Aldactone) 25 mg DAILY PO 11/16/16 09:00 11/21/16 08:22 (NS Flush) 2 ml UNSCH PRN FLUSH 11/16/16 05:00 (NS Flush) 2 ml BID FLUSH 11/16/16 09:00 11/21/16 08:23 (Tylenol) 650 mg Q4H PRN PO 11/16/16 05:00 (Narcan Inj) 0.4 mg UNSCH PRN IV 11/16/16 05:00 (Keppra) 500 mg Q12HR PO 11/18/16 21:00 11/21/16 08:22 (Protonix) 40 mg Q12HR PO 11/18/16 21:00 11/21/16 08:23 (Ativan Inj) 2 mg Q15M PRN IVP 11/19/16 09:00 Allergies Allergies Coded Allergies No Known Allergies (Verified11/15/16) Exam I&O / VS 11/20/16 11/20/16 11/21/16 15:00 23:00 07:00 Intake Total 300 ml Balance 300 ml Intake Oral 300 ml # Voids 1 4 # Bowel Movements 1 1 Vital Signs Date Time Temp Pulse Resp B/P Pulse Ox O2 Delivery O2 Flow Rate FiO2 11/21/16 08:16 96.2 108 18 107/75 94 11/21/16 04:00 97.4 63 20 130/87 96 3/13/17 00:00 98.0 72 18 134/76 98 11/20/16 20:22 Nasal Cannula 4.00 11/20/16 19:30 98.0 73 18 141/76 97 11/20/16 16:25 96.4 95 24 107/79 11/20/16 16:00 96.4 95 24 107/79 11/20/16 15:20 95.0 90 16 101/75 11/20/16 12:55 103 11/20/16 12:00 96.0 94 22 96/71 Objective Micro and Labs Laboratory Tests Test 11/21/16 06:09 White Blood Count 7.1 Red Blood Count 3.82 Hemoglobin 9.4 Hematocrit 30.6 Mean Corpuscular Volume 80.2 Mean Corpuscular Hemoglobin 24.6 Mean Corpuscular Hemoglobin 30.6 Concent Red Cell Distribution Width 21.6 Platelet Count 240 Mean Platelet Volume 8.0 Neutrophils (%) (Auto) 78.8 Lymphocytes (%) (Auto) 7.8 Monocytes (%) (Auto) 8.1 Eosinophils (%) (Auto) 4.6 Basophils (%) (Auto) 0.7 Neutrophils # (Auto) 5.6 Lymphocytes # (Auto) 0.6 Monocytes # (Auto) 0.6 Eosinophils # (Auto) 0.3 Basophils # (Auto) 0.1 CBC Comment AUTO DIFF Differential Comment AUTO DIFF CONFIRMED Platelet Estimate NORMAL Platelet Morphology Comment NORMAL Polychromasia 2.0 Ovalocytes 1+ Keratocytes 1+ Sodium Level 139 Potassium Level 5.3 Chloride Level 102 Carbon Dioxide Level 27.5 Anion Gap 10 Blood Urea Nitrogen 54 Creatinine 1.62 Estimat Glomerular Filtration 50 Rate Random Glucose 132 Calcium Level 8.9 Dewey Powers MD Nov 21, 2016 11:07
--- NOTE | 2016-11-21 12:01 | HHI.PR ---
Subjective Remarks Patient alert and pleasant. No complaints. Denies any SOB or CP Objective Vital Signs Date Time Temp Pulse Resp B/P Pulse Ox O2 Delivery O2 Flow Rate FiO2 11/21/16 08:16 96.2 108 18 107/75 94 11/21/16 04:00 97.4 63 20 130/87 96 11/21/16 00:00 98.0 72 18 134/76 98 11/20/16 20:22 Nasal Cannula 4.00 11/20/16 19:30 98.0 73 18 141/76 97 11/20/16 16:25 96.4 95 24 107/79 11/20/16 16:00 96.4 95 24 107/79 11/20/16 15:20 95.0 90 16 101/75 11/20/16 12:55 103 11/20/16 12:00 96.0 94 22 96/71 I/O 11/20/16 11/20/16 11/20/16 11/21/16 11/21/16 11/21/16 07:00 15:00 23:00 07:00 15:00 23:00 Intake Total 300 ml Output Total 950 ml Balance -950 ml 300 ml Intake Oral 300 ml Output Urine Total 950 ml # Voids 1 4 # Bowel Movements 1 1 Result Diagram: 11/21/16 0609 11/21/16 0609 Procedures EGD Intubation Extubation Objective Remarks GENERAL: SKIN: Warm and dry. Open areas on feet. HEAD: Normocephalic. EYES: No scleral icterus. No injection or drainage. NECK: Supple, trachea midline. No JVD or lymphadenopathy. CARDIOVASCULAR: Regular rate and rhythm without murmurs, gallops, or rubs. 1 + edema in lower extremity RESPIRATORY: Breath sounds equal bilaterally. No accessory muscle use. GASTROINTESTINAL: Abdomen soft, non-tender, nondistended. MUSCULOSKELETAL: No cyanosis, or edema. BACK: Nontender without obvious deformity. No CVA tenderness. Medications and IVs Current Medications Medications (Trade) Dose Ordered Sig/Deborah Route Start Time Stop Time Status Last Admin (Ecotrin Ec) 81 mg DAILY PO 11/16/16 09:00 11/21/16 08:23 (Lasix) 40 mg DAILY PO 11/16/16 09:00 11/21/16 08:23 (Lopressor) 25 mg BID PO 11/16/16 09:00 11/21/16 08:23 (Aldactone) 25 mg DAILY PO 11/16/16 09:00 11/21/16 08:22 (NS Flush) 2 ml UNSCH PRN FLUSH 11/16/16 05:00 (NS Flush) 2 ml BID FLUSH 11/16/16 09:00 11/21/16 08:23 (Tylenol) 650 mg Q4H PRN PO 11/16/16 05:00 (Narcan Inj) 0.4 mg UNSCH PRN IV 11/16/16 05:00 (Keppra) 500 mg Q12HR PO 11/18/16 21:00 11/21/16 08:22 (Protonix) 40 mg Q12HR PO 11/18/16 21:00 11/21/16 08:23 (Ativan Inj) 2 mg Q15M PRN IVP 11/19/16 09:00 Assessment and Plan Problem List: (1) Seizure Status: Acute Plan: No seizure activity noted. On kepra. Neurology managing. (2) GI bleed Status: Acute Plan: Stable. HGB 9.4 (3) Peripheral edema Status: Chronic Plan: 1+ edema. Continue Lasix. Spirolactone discontinued secondary to hyperkalemia. (4) Acute on chronic renal insufficiency Status: Acute Plan: Improving. Assessment and Plan Patient is a DNR signed by POA who is the brother. Plan is for hospice. Problem Qualifiers (1) GI bleed: Vicenta Ritchie Nov 21, 2016 12:01
--- NOTE | 2016-11-21 12:08 | HHI.DS ---
Discharge Summary Admission Date Nov 17, 2016 at 11:53 Admitting Diagnosis significant anemia/questionable new onset seizure Procedures EGD Intubation Extubation CBC/BMP: 11/21/16 0609 11/21/16 0609 Significant Findings Laboratory Tests Test 11/21/16 06:09 Red Blood Count 3.82 MIL/MM3 (4.50-5.90) Hemoglobin 9.4 GM/DL (13.0-17.0) Hematocrit 30.6 % (39.0-51.0) Mean Corpuscular Hemoglobin 24.6 PG (27.0-34.0) Mean Corpuscular Hemoglobin 30.6 % Concent (32.0-36.0) Red Cell Distribution Width 21.6 % (11.6-17.2) Neutrophils (%) (Auto) 78.8 % (16.0-70.0) Lymphocytes (%) (Auto) 7.8 % (9.0-44.0) Monocytes (%) (Auto) 8.1 % (0.0-8.0) Eosinophils (%) (Auto) 4.6 % (0.0-4.0) Lymphocytes # (Auto) 0.6 TH/MM3 (1.0-4.8) Polychromasia 2.0 % (0.0-1.9) Ovalocytes 1+ (NORMAL) Keratocytes 1+ (NORMAL) Potassium Level 5.3 MEQ/L (3.5-5.1) Blood Urea Nitrogen 54 MG/DL (7-18) Creatinine 1.62 MG/DL (0.60-1.30) Estimat Glomerular Filtration 50 ML/MIN (>89) Rate Random Glucose 132 MG/DL (74-106) PE at Discharge GENERAL: SKIN: Warm and dry. Open areas on feet. HEAD: Normocephalic. EYES: No scleral icterus. No injection or drainage. NECK: Supple, trachea midline. No JVD or lymphadenopathy. CARDIOVASCULAR: Regular rate and rhythm without murmurs, gallops, or rubs. 1 + edema in lower extremity RESPIRATORY: Breath sounds equal bilaterally. No accessory muscle use. GASTROINTESTINAL: Abdomen soft, non-tender, nondistended. MUSCULOSKELETAL: No cyanosis, or edema. BACK: Nontender without obvious deformity. No CVA tenderness. Hospital Course This is an 81 y/o male SNF resident followed by Dr. uEgene who was sent to [facility] ER d/t an episode concerning for a seizure witnessed by SNF personnel, but remembered by the patient. He c/o several days of black, tarry stools. He was found to be significantly anemic with a Hgb of 7.3 upon admission and underwent EGD by Dr. Garcia showing acute gastritis, but no visual bleed. Per my d/w Dr. Garcia, he felt that the bleeding source was likely lower GI. Patient was also followed by Neurology and put on seizure medication. Patient is discharged to inpatient hospice today. Pt Condition on Discharge: Fair Discharge Disposition: Hospice/Med Facility Discharge Instructions DIET: Follow Instructions for: As Tolerated, No Restrictions Activities you can perform: Regular-No Restrictions Continued Medications: Acetaminophen (Acetaminophen) 325 Mg Tab 650 MG PO Q4H PRN PAIN 1 TO 10 AND/OR AGITATION #60 TAB Aspirin (Aspirin) 81 Mg Tabdr 81 MG PO DAILY TAB Furosemide (Lasix) 40 Mg Tab 40 MG PO DAILY #30 Ref 0 TAB Metoprolol Tartrate (Metoprolol Tartrate) 25 Mg Tab 25 MG PO BID #60 Ref 0 TAB Discontinued Medications: Furosemide (Lasix) 20 Mg Tab 20 MG PO qhs chf #30 Ref 0 TAB Glipizide (Glipizide) 5 Mg Tab 5 MG PO DAILY Take 30 minutes before a meal Blood Sugar Management #30 Ref 0 TAB Sacubitril-Valsartan (Entresto) 49-51 Mg Tab 1 TAB PO DAILY Heart Failure #30 Ref 0 TAB Spironolactone (Spironolactone) 25 Mg Tab 25 MG PO DAILY #30 Ref 0 TAB Vicenta Ritchie Nov 21, 2016 12:08
[2016-11-21 12:19] VITALS: BP 95/63; PULSE 102; RESP 18; TEMP 96.4; O2SAT 96
[2016-11-21 13:30] VITALS: O2SAT 96
[2016-11-21 16:06] VITALS: BP 108/78; PULSE 93; RESP 18; TEMP 96.4; O2SAT 92
== END 2016-11-21 19:07 | disposition hospice, inpatient (51) | DRG 377 ==
LOC: NEPE 23:29 → NEDA 11-16 02:32 → NEDH 11-16 06:25 → HIMN 11-16 12:50 → OBSVTOIN 11-17 11:53 → N05A 11-19 09:51
PROVIDERS: ADMIT Family Medicine; ATTEND Family Medicine
PROC: 0DB68ZX Excision of Stomach, Via Natural or Artificial Opening Endoscopic, Diagnostic (ICD-10-PCS; principal; 2016-11-17)
PROC: 30253N1 (ICD-10-PCS; 2016-11-17)
PROC: 0BH17EZ Insertion of Endotracheal Airway into Trachea, Via Natural or Artificial Opening (ICD-10-PCS; 2016-11-17)
DX: K92.1 Melena (principal); J96.91 Respiratory failure, unspecified with hypoxia; I95.9 Hypotension, unspecified; I13.0 Hypertensive heart and chronic kidney disease with heart failure and stage 1 through stage 4 chronic kidney disease, or unspecified chronic kidney disease; I50.9 Heart failure, unspecified; E11.22 Type 2 diabetes mellitus with diabetic chronic kidney disease; E87.5 Hyperkalemia; K25.9 Gastric ulcer, unspecified as acute or chronic, without hemorrhage or perforation; D64.9 Anemia, unspecified; K29.00 Acute gastritis without bleeding; N18.9 Chronic kidney disease, unspecified; E78.5 Hyperlipidemia, unspecified; G40.909 Epilepsy, unspecified, not intractable, without status epilepticus; K26.9 Duodenal ulcer, unspecified as acute or chronic, without hemorrhage or perforation; Z95.810 Presence of automatic (implantable) cardiac defibrillator
CPT/HCPCS: 31500; 36430; 70450; 71010; 80048; 80053; 82550; 83735; 84100; 84484; 85014; 85018; 85025; 86850; 86900; 86901; 86920; 87641; 88305; 88312; 93005; 94002; 95819; C9113; G0378; J1953; J2060; P9016